=== PATIENT | male | born 1945 | race Hispanic/Latino ===

== ENCOUNTER 2016-12-23 14:39 | Inpatient (IN) | payer OTHER, MEDICARE ==
[2016-12-23 20:12] VITALS: BMI 37.6
[2016-12-23] MEDS ORDERED: Benzocaine/Menthol (Cepacol) Lozenge PO PRN (23:08)
[2016-12-24] MEDS ORDERED: IRBESARTAN 300 MG PO SCH (09:00)
[2016-12-24] MEDS ORDERED: Potassium Chloride 20 mEq/15 ml LIQ UD PO SCH (09:00)
[2016-12-24] MEDS ORDERED: Patient's Own Med (Cholecalciferol (Vitamin D3) [Vitamin D3] 2,000 UNIT) PO SCH (09:00)
[2016-12-24] MEDS ORDERED: SAW PALMETTO FRUIT 450 MG PO SCH (09:00)
[2016-12-24] MEDS: Oxycodone/Acetaminophen 5/325 mg Tab PO PRN ×3 (09:07→21:12)
[2016-12-24] MEDS: Pantoprazole 40 mg EC Tab PO SCH (09:09)
[2016-12-24] MEDS: Multivitamin With Minerals Tab PO SCH (09:09)
--- NOTE | 2016-12-24 10:24 | CP.PCM.HP ---
Present on Admission - Present on Admission Any Indicators Present on Admission: Yes History of DVT/PE: Yes History of Uncontrolled Diabetes: No Urinary Catheter: No Decubitus Ulcer Present: No Review of Systems - Review of Systems All systems: reviewed and no additional remarkable complaints except - Cardiovascular Cardiovascular: As Per HPI, Pedal Edema - Respiratory Respiratory: As Per HPI Past Patient History - Infectious Disease Hx of Infectious Diseases: None - Past Medical History & Family History Past Medical History?: Yes Pertinent Family History: Mother- at age 92 Father at age 60. [place] @55, brain tumor - Past Social History Smoking Status: Never Smoked Alcohol: None Drugs: Denies - CARDIAC Hx Cardiac Disorders: Yes Hx Atrial Fibrillation: Yes (PAF) Hx Circulatory Problems: Yes Hx Heart Murmur: Yes Hx Hypertension: Yes Hx Mitral Valve Prolapse: Yes - PULMONARY Hx Respiratory Disorders: Yes Hx Pulmonary Embolism: Yes (2 years ago) Hx Respiratory Tract Infection: Yes Hx Sleep Apnea: Yes (CPAP ) - NEUROLOGICAL Hx Neurological Disorder: No - HEENT Hx HEENT Problems: No - RENAL Hx Chronic Kidney Disease: No - ENDOCRINE/METABOLIC Hx Endocrine Disorders: No - HEMATOLOGICAL/ONCOLOGICAL Hx Blood Disorders: No - INTEGUMENTARY Hx Dermatological Problems: No - MUSCULOSKELETAL/RHEUMATOLOGICAL Hx Falls: No - GASTROINTESTINAL Hx Gastrointestinal Disorders: No - GENITOURINARY/GYNECOLOGICAL Hx Genitourinary Disorders: Yes Hx Prostate Problems: Yes - PSYCHIATRIC Hx Substance Use: No - SURGICAL HISTORY Hx Surgeries: Yes Hx Herniorrhaphy: Yes Hx Valve Replacement: (Mitral Valve Repair with Ring and Closure of Appendage) Other/Comment: HX: CYST REMOVAL OF LEFT SIDE OF NECK-POSTERIOR AND UPPER FOREHEAD. GALINA EPIDURAL INJECTION - ANESTHESIA Hx Anesthesia: Yes Hx Anesthesia Reactions: No Hx Malignant Hyperthermia: No Meds Allergies/Adverse Reactions: Allergies Allergy/AdvReac Type Severity Reaction Status Date / Time No Known Allergies Allergy Verified 11/26/14 16:56 Physical Exam - Constitutional Appears: Well, No Acute Distress - Head Exam Head Exam: ATRAUMATIC, NORMAL INSPECTION, NORMOCEPHALIC - Eye Exam Eye Exam: EOMI, Normal appearance, PERRL Pupil Exam: NORMAL ACCOMODATION, PERRL - ENT Exam ENT Exam: Mucous Membranes Moist, Normal Exam - Neck Exam Neck exam: Positive for: Full Rom, Normal Inspection - Respiratory Exam Respiratory Exam: Clear to Auscultation Bilateral, NORMAL BREATHING PATTERN - Cardiovascular Exam Cardiovascular Exam: Bradycardia, REGULAR RHYTHM, +S1, +S2 Additional comments: +midline surgical scar - GI/Abdominal Exam GI & Abdominal Exam: Normal Bowel Sounds, Soft. absent: Tenderness - Extremities Exam Extremities exam: Positive for: normal capillary refill, pedal edema (+++ pitting Edema) - Back Exam Back exam: NORMAL INSPECTION - Neurological Exam Neurological exam: Alert, CN II-XII Intact, Normal Gait, Oriented x3, Reflexes Normal - Psychiatric Exam Psychiatric exam: Normal Affect, Normal Mood - Skin Skin Exam: Dry, Intact, Normal Color, Warm Results - Vital Signs Recent Vital Signs: Last Vital Signs Temp 97.7 F 12/24/16 08:00 Pulse 55 L 12/24/16 09:08 Resp 20 12/24/16 08:00 BP 108/56 L 12/24/16 09:09 Pulse Ox 99 12/24/16 08:00 Assessment & Plan (1) Pulmonary emboli Assessment and Plan: DVT Status: Acute (2) HTN (hypertension) Status: Chronic Priority: Low (3) GILLIAN (obstructive sleep apnea) Status: Chronic Priority: Low (4) S/P mitral valve repair Status: Acute (5) Bilateral lower extremity edema Status: Acute
[2016-12-24 11:31] LABS: ALKALINE PHOSPHATASE 95 U/L (38-126); ALT/SGPT 58 U/L (21-72); AST/SGOT 35 U/L (17-59); BILIRUBIN,TOTAL 0.9 mg/dl (0.2-1.3); BLOOD UREA NITROGEN 26 mg/dl (9-20); CALCIUM 8.9 mg/dL (8.4-10.2); CARBON DIOXIDE 35 mmol/L (22-30); CHLORIDE 97 mmol/L (98-107); GFR AFRICAN-AMERICAN > 60; GLUCOSE,RANDOM 95 mg/dL (75-110); SODIUM 139 mmol/l (132-148); TOTAL PROTEIN 7.1 G/DL (6.3-8.2)
[2016-12-24 12:01] LABS: THYROID STIMULATING HORMONE 1.65 mIU/ML (0.46-4.68)
[2016-12-24] MEDS ORDERED: Potassium Chloride 20 mEq ER Tab PO SCH (17:00)
[2016-12-24] MEDS: Promethazine DM 6.25 mg-15 mg/5 ml Syrup PO PRN (21:03)
[2016-12-25] MEDS: Promethazine DM 6.25 mg-15 mg/5 ml Syrup PO PRN ×3 (05:03→16:22)
[2016-12-25] MEDS: Oxycodone/Acetaminophen 5/325 mg Tab PO PRN ×3 (06:41→22:20)
[2016-12-25] MEDS: Pantoprazole 40 mg EC Tab PO SCH (08:49)
[2016-12-25] MEDS: Multivitamin With Minerals Tab PO SCH (08:50)
--- NOTE | 2016-12-25 09:34 | CARD ---
APPROVED REPORT EKG Measurement Heart [id number] <Conclusion> Normal sinus rhythm Right bundle branch block Inferior infarct, age undetermined Abnormal ECG
--- NOTE | 2016-12-25 11:58 | CP.PCM.CON ---
History of Present Illness - History of Present Illness History of Present Illness: CC: Orthostatic hypotension. HPI: This is a 71 year old male with a PMH of recent MV repair, post of atrial fibrillation, DVT, PE and GILLIAN who is transferred to the TCU post MVR. He is noted to have lower extremity edema and mild dyspnea with effort. His post op course was otherwise uncomplicated and the patient is tolerating PT as expected. He has chest wall pain mainly with coughing and deep inspiration otherwise has no complaints. An ECG reveals sinus rhythm at 60 BPM, RBBB, inferior SC age indeterminate and low voltage in precordial leads. Review of Systems - Constitutional Constitutional: Fatigue - EENT Additional comments: Negative. - Cardiovascular Cardiovascular: Dyspnea, Dyspnea on Exertion, Leg Edema - Respiratory Respiratory: Dyspnea - Gastrointestinal Additional comments: Negative. - Genitourinary Additional comments: Negative. - Musculoskeletal Musculoskeletal: Muscle Weakness Additional comments: Chest wall pain. - Integumentary Additional comments: Negative. - Neurological Neurological: Weakness - Psychiatric Additional comments: Negative. - Endocrine Endocrine: Fatigue - Hematologic/Lymphatic Additional comments: Negative. Past Patient History - Infectious Disease Hx of Infectious Diseases: None - Past Medical History & Family History Past Medical History?: Yes - Past Social History Smoking Status: Never Smoked Alcohol: None Drugs: Denies - CARDIAC Hx Cardiac Disorders: Yes Hx Atrial Fibrillation: Yes (PAF) Hx Circulatory Problems: Yes (DVT) Hx Heart Murmur: Yes Hx Hypertension: Yes Hx Mitral Valve Prolapse: Yes - PULMONARY Hx Respiratory Disorders: Yes Hx Pulmonary Embolism: Yes (2 years ago) Hx Respiratory Tract Infection: Yes Hx Sleep Apnea: Yes (CPAP ) - NEUROLOGICAL Hx Neurological Disorder: No - HEENT Hx HEENT Problems: No - RENAL Hx Chronic Kidney Disease: No - ENDOCRINE/METABOLIC Hx Endocrine Disorders: No - HEMATOLOGICAL/ONCOLOGICAL Hx Blood Disorders: No - INTEGUMENTARY Hx Dermatological Problems: No - MUSCULOSKELETAL/RHEUMATOLOGICAL Hx Falls: No - GASTROINTESTINAL Hx Gastrointestinal Disorders: No - GENITOURINARY/GYNECOLOGICAL Hx Genitourinary Disorders: Yes Hx Prostate Problems: Yes - PSYCHIATRIC Hx Substance Use: No - SURGICAL HISTORY Hx Surgeries: Yes Hx Herniorrhaphy: Yes Hx Valve Replacement: (Mitral Valve Repair with Ring and Closure of Appendage) Other/Comment: HX: CYST REMOVAL OF LEFT SIDE OF NECK-POSTERIOR AND UPPER FOREHEAD. GALINA EPIDURAL INJECTION - ANESTHESIA Hx Anesthesia: Yes Hx Anesthesia Reactions: No Hx Malignant Hyperthermia: No Meds Allergies/Adverse Reactions: Allergies Allergy/AdvReac Type Severity Reaction Status Date / Time No Known Allergies Allergy Verified 11/26/14 16:56 - Medications Medications: Current Medications Acetaminophen (Tylenol 325mg Tab) 325 mg PO Q4 PRN PRN Reason: Pain, Mild (1-3) Amiodarone HCl (Cordarone) 200 mg PO BID [facility] Last Admin: 12/25/16 08:47 Dose: 200 mg Apixaban (Eliquis) 5 mg PO BID [facility] PRN Reason: Protocol Last Admin: 12/25/16 08:49 Dose: 5 mg Aspirin (Aspirin Chewable) 81 mg PO DAILY [facility] Last Admin: 12/25/16 08:47 Dose: 81 mg Benzocaine/Menthol (Cepacol Sore Throat) 1 ari PO QID PRN PRN Reason: Sore Throat Last Admin: 12/24/16 09:03 Dose: 1 ari Bisacodyl (Dulcolax) 10 mg [place] DAILY PRN PRN Reason: Constipation Cholecalciferol (Vitamin D) 2,000 iu PO DAILY [facility] Last Admin: 12/25/16 08:50 Dose: 2,000 iu Docusate Sodium (Colace) 100 mg PO BID [facility] Last Admin: 12/25/16 08:47 Dose: 100 mg Furosemide (Lasix) 40 mg PO DAILY [facility] Last Admin: 12/25/16 08:49 Dose: 40 mg Lactulose (Enulose) 20 gm PO Q12H PRN PRN Reason: Constipation Losartan Potassium (Cozaar) 100 mg PO DAILY [facility] Last Admin: 12/25/16 11:12 Dose: 100 mg Multivitamins/Minerals (Therapeutic-M Tab) 1 tab PO DAILY [facility] Last Admin: 12/25/16 08:50 Dose: 1 tab Oxycodone/Acetaminophen (Percocet 5/325 Mg Tab) 1 tab PO Q4 PRN PRN Reason: Pain, moderate (4-7) Stop: 12/26/16 23:22 Last Admin: 12/25/16 06:41 Dose: 1 tab Oxycodone/Acetaminophen (Percocet 5/325 Mg Tab) 2 tab PO Q4 PRN PRN Reason: Pain, severe (8-10) Stop: 12/26/16 23:23 Last Admin: 12/24/16 21:12 Dose: 2 tab Pantoprazole Sodium (Protonix Ec Tab) 40 mg PO DAILY [facility] Last Admin: 12/25/16 08:49 Dose: 40 mg Promethazine HCl/Dextromethorphan (Phenergan Dm Syrup) 5 ml PO Q6 PRN PRN Reason: cough Last Admin: 12/25/16 11:13 Dose: 5 ml Tamsulosin HCl (Flomax) 0.4 mg PO DAILY [facility] Last Admin: 12/25/16 08:49 Dose: 0.4 mg Physical Exam - Constitutional Appears: Well, No Acute Distress - Head Exam Head Exam: NORMAL INSPECTION, NORMOCEPHALIC - Eye Exam Eye Exam: Normal appearance - ENT Exam ENT Exam: Mucous Membranes Moist, Normal Exam - Neck Exam Neck exam: Positive for: Normal Inspection - Respiratory Exam Respiratory Exam: Decreased Breath Sounds, NORMAL BREATHING PATTERN - Cardiovascular Exam Cardiovascular Exam: REGULAR RHYTHM, +S1, +S2 - GI/Abdominal Exam GI & Abdominal Exam: Normal Bowel Sounds - Rectal Exam Rectal Exam: Deferred - Extremities Exam Extremities exam: Positive for: full ROM, pedal edema - Back Exam Back exam: NORMAL INSPECTION - Neurological Exam Neurological exam: Alert, CN II-XII Intact, Oriented x3 - Psychiatric Exam Psychiatric exam: Normal Affect, Normal Mood - Skin Skin Exam: Dry, Intact, Normal Color, Warm Results - Vital Signs Recent Vital Signs: Last Vital Signs Temp 98.1 F 12/25/16 08:28 Pulse 60 12/25/16 11:12 Resp 20 12/25/16 08:28 BP 102/68 12/25/16 11:12 Pulse Ox 95 12/25/16 08:28 - Labs Result Diagrams: 12/24/16 11:10 Labs: Laboratory Results - last 24 hr 12/24/16 11:10 TSH 3rd Generation 1.65 Assessment & Plan - Assessment and Plan (Free Text) Assessment: MV repair with annular ring Post op atrial fibrillation Edema Dyspnea H/o DVT, PE GILLIAN Plan: Continue present medical management with lasix, apixaban, amiodarone PT Follow up as an outpatient - Date & Time Date: 12/25/16 Time: 21:40
--- NOTE | 2016-12-25 18:26 | CP.PCM.PN ---
Subjective - Date & Time of Evaluation Date of Evaluation: 12/25/16 Time of Evaluation: 18:25 Objective - Vital Signs/Intake and Output Vital Signs (last 24 hours): Temp Pulse Resp BP Pulse Ox 98.1 F 57 L 18 98/57 L 97 12/25/16 16:32 12/25/16 16:32 12/25/16 16:32 12/25/16 16:32 12/25/16 16:32 - Medications Medications: Current Medications Acetaminophen (Tylenol 325mg Tab) 325 mg PO Q4 PRN PRN Reason: Pain, Mild (1-3) Amiodarone HCl (Cordarone) 200 mg PO BID [facility] Last Admin: 12/25/16 17:43 Dose: Not Given Apixaban (Eliquis) 5 mg PO BID [facility] PRN Reason: Protocol Last Admin: 12/25/16 17:44 Dose: Not Given Aspirin (Aspirin Chewable) 81 mg PO DAILY [facility] Last Admin: 12/25/16 08:47 Dose: 81 mg Benzocaine/Menthol (Cepacol Sore Throat) 1 ari PO QID PRN PRN Reason: Sore Throat Last Admin: 12/24/16 09:03 Dose: 1 ari Bisacodyl (Dulcolax) 10 mg [place] DAILY PRN PRN Reason: Constipation Cholecalciferol (Vitamin D) 2,000 iu PO DAILY [facility] Last Admin: 12/25/16 08:50 Dose: 2,000 iu Docusate Sodium (Colace) 100 mg PO BID [facility] Last Admin: 12/25/16 17:44 Dose: 100 mg Furosemide (Lasix) 40 mg PO DAILY [facility] Last Admin: 12/25/16 08:49 Dose: 40 mg Lactulose (Enulose) 20 gm PO Q12H PRN PRN Reason: Constipation Losartan Potassium (Cozaar) 100 mg PO DAILY [facility] Last Admin: 12/25/16 11:12 Dose: 100 mg Multivitamins/Minerals (Therapeutic-M Tab) 1 tab PO DAILY [facility] Last Admin: 12/25/16 08:50 Dose: 1 tab Oxycodone/Acetaminophen (Percocet 5/325 Mg Tab) 1 tab PO Q4 PRN PRN Reason: Pain, moderate (4-7) Stop: 12/26/16 23:22 Last Admin: 12/25/16 15:29 Dose: 1 tab Oxycodone/Acetaminophen (Percocet 5/325 Mg Tab) 2 tab PO Q4 PRN PRN Reason: Pain, severe (8-10) Stop: 12/26/16 23:23 Last Admin: 12/24/16 21:12 Dose: 2 tab Pantoprazole Sodium (Protonix Ec Tab) 40 mg PO DAILY [facility] Last Admin: 12/25/16 08:49 Dose: 40 mg Promethazine HCl/Dextromethorphan (Phenergan Dm Syrup) 5 ml PO Q6 PRN PRN Reason: cough Last Admin: 12/25/16 16:22 Dose: 5 ml Tamsulosin HCl (Flomax) 0.4 mg PO DAILY [facility] Last Admin: 12/25/16 08:49 Dose: 0.4 mg - Labs Labs: 12/24/16 11:10 Assessment and Plan (1) Pulmonary emboli Status: Acute (2) HTN (hypertension) Status: Chronic (3) GILLIAN (obstructive sleep apnea) Status: Chronic (4) S/P mitral valve repair Status: Acute (5) Bilateral lower extremity edema Status: Acute
[2016-12-26] MEDS: Promethazine DM 6.25 mg-15 mg/5 ml Syrup PO PRN ×3 (05:03→20:15)
[2016-12-26] MEDS: Oxycodone/Acetaminophen 5/325 mg Tab PO PRN ×2 (08:26→21:48)
[2016-12-26] MEDS: Pantoprazole 40 mg EC Tab PO SCH (08:28)
[2016-12-26] MEDS: Multivitamin With Minerals Tab PO SCH (08:28)
--- NOTE | 2016-12-26 11:49 | CP.PCM.PN ---
Subjective - Date & Time of Evaluation Date of Evaluation: 12/26/16 Time of Evaluation: 11:00 Objective - Vital Signs/Intake and Output Vital Signs (last 24 hours): Temp Pulse Resp BP Pulse Ox 97.7 F 55 L 20 132/69 97 12/26/16 08:51 12/26/16 08:51 12/26/16 08:51 12/26/16 08:51 12/26/16 08:51 - Medications Medications: Current Medications Acetaminophen (Tylenol 325mg Tab) 325 mg PO Q4 PRN PRN Reason: Pain, Mild (1-3) Amiodarone HCl (Cordarone) 200 mg PO BID@0900,2100 [facility] Last Admin: 12/26/16 08:27 Dose: 200 mg Apixaban (Eliquis) 5 mg PO BID [facility] PRN Reason: Protocol Last Admin: 12/26/16 08:28 Dose: 5 mg Aspirin (Aspirin Chewable) 81 mg PO DAILY [facility] Last Admin: 12/26/16 08:27 Dose: 81 mg Benzocaine/Menthol (Cepacol Sore Throat) 1 ari PO QID PRN PRN Reason: Sore Throat Last Admin: 12/24/16 09:03 Dose: 1 ari Bisacodyl (Dulcolax) 10 mg [place] DAILY PRN PRN Reason: Constipation Cholecalciferol (Vitamin D) 2,000 iu PO DAILY [facility] Last Admin: 12/26/16 08:28 Dose: 2,000 iu Docusate Sodium (Colace) 100 mg PO BID [facility] Last Admin: 12/26/16 08:27 Dose: 100 mg Furosemide (Lasix) 40 mg PO DAILY [facility] Last Admin: 12/26/16 08:28 Dose: 40 mg Lactulose (Enulose) 20 gm PO Q12H PRN PRN Reason: Constipation Losartan Potassium (Cozaar) 100 mg PO DAILY [facility] Last Admin: 12/26/16 08:27 Dose: 100 mg Multivitamins/Minerals (Therapeutic-M Tab) 1 tab PO DAILY [facility] Last Admin: 12/26/16 08:28 Dose: 1 tab Oxycodone/Acetaminophen (Percocet 5/325 Mg Tab) 1 tab PO Q4 PRN PRN Reason: Pain, moderate (4-7) Stop: 12/26/16 23:22 Last Admin: 12/26/16 08:26 Dose: 1 tab Oxycodone/Acetaminophen (Percocet 5/325 Mg Tab) 2 tab PO Q4 PRN PRN Reason: Pain, severe (8-10) Stop: 12/26/16 23:23 Last Admin: 12/24/16 21:12 Dose: 2 tab Pantoprazole Sodium (Protonix Ec Tab) 40 mg PO DAILY [facility] Last Admin: 12/26/16 08:28 Dose: 40 mg Promethazine HCl/Dextromethorphan (Phenergan Dm Syrup) 5 ml PO Q4 PRN PRN Reason: Cough Tamsulosin HCl (Flomax) 0.4 mg PO DAILY [facility] Last Admin: 12/26/16 08:28 Dose: 0.4 mg - Labs Labs: 12/24/16 11:10 Assessment and Plan (1) Pulmonary emboli Status: Acute (2) HTN (hypertension) Status: Chronic (3) GILLIAN (obstructive sleep apnea) Status: Chronic (4) S/P mitral valve repair Status: Acute (5) Bilateral lower extremity edema Status: Acute
[2016-12-27] MEDS ORDERED: Oxycodone/Acetaminophen 5/325 mg Tab PO PRN (07:18)
[2016-12-27] MEDS: Pantoprazole 40 mg EC Tab PO SCH (08:55)
[2016-12-27] MEDS: Multivitamin With Minerals Tab PO SCH (08:55)
[2016-12-27] MEDS: Promethazine DM 6.25 mg-15 mg/5 ml Syrup PO PRN ×3 (13:30→23:18)
--- NOTE | 2016-12-27 20:21 | CP.PCM.PN ---
Subjective - Date & Time of Evaluation Date of Evaluation: 12/27/16 Time of Evaluation: 11:15 Objective - Vital Signs/Intake and Output Vital Signs (last 24 hours): Temp Pulse Resp BP Pulse Ox 97.7 F 63 20 102/53 L 96 12/27/16 17:07 12/27/16 08:54 12/27/16 08:06 12/27/16 17:14 12/27/16 08:06 - Medications Medications: Current Medications Acetaminophen (Tylenol 325mg Tab) 325 mg PO Q4 PRN PRN Reason: Pain, Mild (1-3) Amiodarone HCl (Cordarone) 200 mg PO BID@0900,2100 [facility] Last Admin: 12/27/16 08:53 Dose: 200 mg Apixaban (Eliquis) 5 mg PO BID [facility] PRN Reason: Protocol Last Admin: 12/27/16 17:44 Dose: 5 mg Aspirin (Aspirin Chewable) 81 mg PO DAILY [facility] Last Admin: 12/27/16 08:53 Dose: 81 mg Benzocaine/Menthol (Cepacol Sore Throat) 1 ari PO QID PRN PRN Reason: Sore Throat Last Admin: 12/24/16 09:03 Dose: 1 ari Bisacodyl (Dulcolax) 10 mg [place] DAILY PRN PRN Reason: Constipation Cholecalciferol (Vitamin D) 2,000 iu PO DAILY [facility] Last Admin: 12/27/16 08:55 Dose: 2,000 iu Docusate Sodium (Colace) 100 mg PO BID [facility] Last Admin: 12/27/16 17:44 Dose: 100 mg Furosemide (Lasix) 40 mg PO DAILY [facility] Last Admin: 12/27/16 08:54 Dose: 40 mg Lactulose (Enulose) 20 gm PO Q12H PRN PRN Reason: Constipation Losartan Potassium (Cozaar) 100 mg PO DAILY [facility] Last Admin: 12/27/16 08:54 Dose: 100 mg Multivitamins/Minerals (Therapeutic-M Tab) 1 tab PO DAILY [facility] Last Admin: 12/27/16 08:55 Dose: 1 tab Oxycodone/Acetaminophen (Percocet 5/325 Mg Tab) 1 tab PO Q4 PRN PRN Reason: for pain level 4-7 Stop: 12/30/16 07:19 Oxycodone/Acetaminophen (Percocet 5/325 Mg Tab) 2 tab PO Q4 PRN PRN Reason: for pain level 8-10 Stop: 12/30/16 07:19 Pantoprazole Sodium (Protonix Ec Tab) 40 mg PO DAILY [facility] Last Admin: 12/27/16 08:55 Dose: 40 mg Promethazine HCl/Dextromethorphan (Phenergan Dm Syrup) 5 ml PO Q4 PRN PRN Reason: Cough Last Admin: 12/27/16 18:24 Dose: 5 ml Tamsulosin HCl (Flomax) 0.4 mg PO DAILY [facility] Last Admin: 12/27/16 08:54 Dose: 0.4 mg - Labs Labs: 12/24/16 11:10 Assessment and Plan (1) Pulmonary emboli Status: Acute (2) HTN (hypertension) Status: Chronic (3) GILLIAN (obstructive sleep apnea) Status: Chronic (4) S/P mitral valve repair Status: Acute (5) Bilateral lower extremity edema Status: Acute
[2016-12-27] MEDS: Oxycodone/Acetaminophen 5/325 mg Tab PO PRN (22:34)
[2016-12-28 07:48] LABS: ALKALINE PHOSPHATASE 79 U/L (38-126); ALT/SGPT 48 U/L (21-72); AST/SGOT 33 U/L (17-59); BILIRUBIN,TOTAL 0.9 mg/dl (0.2-1.3); BLOOD UREA NITROGEN 26 mg/dl (9-20); CALCIUM 8.6 mg/dL (8.4-10.2); CARBON DIOXIDE 31 mmol/L (22-30); CHLORIDE 96 mmol/L (98-107); GFR AFRICAN-AMERICAN > 60; GLUCOSE,RANDOM 93 mg/dL (75-110); POTASSIUM 3.9 MMOL/L (3.6-5.0); SODIUM 133 mmol/l (132-148); TOTAL PROTEIN 6.6 G/DL (6.3-8.2)
[2016-12-28 07:57] LABS: BASO # 0.1 K/uL (0.0-0.2); BASO % 0.7 % (0.0-2.0); EOS # 0.2 K/uL (0.0-0.7); EOS % 1.8 % (0.0-4.0); LYMPH # 1.2 K/uL (1.0-4.3); LYMPH % 13.5 % (20.0-40.0); MEAN CORPUSCULAR HEMOGLOBIN 29.6 pg (27.0-31.0); MEAN CORPUSCULAR HGB CONC 33.6 g/dL (33.0-37.0); MEAN PLATELET VOLUME 9.2 fl (7.2-11.7); MONO % 12.1 % (0.0-10.0); NEUT # 6.2 K/uL (1.8-7.0); NEUT % 71.9 % (50.0-75.0); NRBC % 0.2 % (0.0-0.0); RED CELL DISTRIBUTION WIDTH 13.4 % (11.5-14.5); WHITE BLOOD COUNT 8.6 K/uL (4.8-10.8)
[2016-12-28] MEDS: Promethazine DM 6.25 mg-15 mg/5 ml Syrup PO PRN (08:34)
[2016-12-28] MEDS: Pantoprazole 40 mg EC Tab PO SCH (08:35)
[2016-12-28] MEDS: Multivitamin With Minerals Tab PO SCH (08:37)
--- NOTE | 2016-12-28 22:31 | CP.PCM.PN ---
Subjective - Date & Time of Evaluation Date of Evaluation: 12/28/16 Time of Evaluation: 11:00 Objective - Vital Signs/Intake and Output Vital Signs (last 24 hours): Temp Pulse Resp BP Pulse Ox 98.1 F 69 20 104/65 97 12/28/16 22:04 12/28/16 22:04 12/28/16 22:04 12/28/16 22:04 12/28/16 22:04 - Medications Medications: Current Medications Acetaminophen (Tylenol 325mg Tab) 325 mg PO Q4 PRN PRN Reason: Pain, Mild (1-3) Amiodarone HCl (Cordarone) 200 mg PO BID@0900,2100 [facility] Last Admin: 12/28/16 20:45 Dose: 200 mg Apixaban (Eliquis) 5 mg PO BID [facility] PRN Reason: Protocol Last Admin: 12/28/16 17:12 Dose: 5 mg Aspirin (Aspirin Chewable) 81 mg PO DAILY [facility] Last Admin: 12/28/16 08:35 Dose: 81 mg Benzocaine/Menthol (Cepacol Sore Throat) 1 ari PO QID PRN PRN Reason: Sore Throat Last Admin: 12/24/16 09:03 Dose: 1 ari Bisacodyl (Dulcolax) 10 mg [place] DAILY PRN PRN Reason: Constipation Cholecalciferol (Vitamin D) 2,000 iu PO DAILY [facility] Last Admin: 12/28/16 08:37 Dose: 2,000 iu Docusate Sodium (Colace) 100 mg PO BID [facility] Last Admin: 12/28/16 17:12 Dose: 100 mg Furosemide (Lasix) 40 mg PO DAILY [facility] Last Admin: 12/28/16 08:35 Dose: 40 mg Lactulose (Enulose) 20 gm PO Q12H PRN PRN Reason: Constipation Losartan Potassium (Cozaar) 100 mg PO DAILY [facility] Last Admin: 12/28/16 08:36 Dose: 100 mg Multivitamins/Minerals (Therapeutic-M Tab) 1 tab PO DAILY [facility] Last Admin: 12/28/16 08:37 Dose: 1 tab Oxycodone/Acetaminophen (Percocet 5/325 Mg Tab) 1 tab PO Q4 PRN PRN Reason: for pain level 4-7 Stop: 12/30/16 07:19 Last Admin: 12/27/16 22:34 Dose: 1 tab Oxycodone/Acetaminophen (Percocet 5/325 Mg Tab) 2 tab PO Q4 PRN PRN Reason: for pain level 8-10 Stop: 12/30/16 07:19 Pantoprazole Sodium (Protonix Ec Tab) 40 mg PO DAILY [facility] Last Admin: 12/28/16 08:35 Dose: 40 mg Promethazine HCl/Dextromethorphan (Phenergan Dm Syrup) 5 ml PO Q4 PRN PRN Reason: Cough Last Admin: 12/28/16 08:34 Dose: 5 ml Tamsulosin HCl (Flomax) 0.4 mg PO DAILY [facility] Last Admin: 12/28/16 08:37 Dose: 0.4 mg - Labs Labs: 12/28/16 07:16 12/28/16 07:16 Assessment and Plan (1) Pulmonary emboli Status: Acute (2) HTN (hypertension) Status: Chronic (3) GILLIAN (obstructive sleep apnea) Status: Chronic (4) S/P mitral valve repair Status: Acute (5) Bilateral lower extremity edema Status: Acute
[2016-12-29] MEDS: Oxycodone/Acetaminophen 5/325 mg Tab PO PRN (02:03)
[2016-12-29] MEDS: Multivitamin With Minerals Tab PO SCH (09:21)
[2016-12-29] MEDS: Pantoprazole 40 mg EC Tab PO SCH (09:23)
[2016-12-30] MEDS: Oxycodone/Acetaminophen 5/325 mg Tab PO PRN (00:10)
[2016-12-30] MEDS: Promethazine DM 6.25 mg-15 mg/5 ml Syrup PO PRN ×2 (00:11→18:52)
--- NOTE | 2016-12-30 00:48 | CP.PCM.PN ---
Subjective - Date & Time of Evaluation Date of Evaluation: 12/29/16 Time of Evaluation: 20:45 Objective - Vital Signs/Intake and Output Vital Signs (last 24 hours): Temp Pulse Resp BP Pulse Ox 97.9 F 65 20 102/48 L 96 12/29/16 20:42 12/29/16 22:04 12/29/16 20:42 12/29/16 20:42 12/29/16 20:42 - Medications Medications: Current Medications Acetaminophen (Tylenol 325mg Tab) 325 mg PO Q4 PRN PRN Reason: Pain, Mild (1-3) Amiodarone HCl (Cordarone) 200 mg PO BID@0900,2100 [facility] Last Admin: 12/29/16 22:04 Dose: 200 mg Apixaban (Eliquis) 5 mg PO BID [facility] PRN Reason: Protocol Last Admin: 12/29/16 16:47 Dose: 5 mg Aspirin (Aspirin Chewable) 81 mg PO DAILY [facility] Last Admin: 12/29/16 09:25 Dose: 81 mg Benzocaine/Menthol (Cepacol Sore Throat) 1 ari PO QID PRN PRN Reason: Sore Throat Last Admin: 12/24/16 09:03 Dose: 1 ari Bisacodyl (Dulcolax) 10 mg [place] DAILY PRN PRN Reason: Constipation Cholecalciferol (Vitamin D) 2,000 iu PO DAILY [facility] Last Admin: 12/29/16 09:23 Dose: 2,000 iu Docusate Sodium (Colace) 100 mg PO BID [facility] Last Admin: 12/29/16 16:47 Dose: 100 mg Furosemide (Lasix) 40 mg PO DAILY [facility] Last Admin: 12/29/16 09:22 Dose: 40 mg Lactulose (Enulose) 20 gm PO Q12H PRN PRN Reason: Constipation Losartan Potassium (Cozaar) 100 mg PO DAILY [facility] Last Admin: 12/29/16 09:21 Dose: 100 mg Multivitamins/Minerals (Therapeutic-M Tab) 1 tab PO DAILY [facility] Last Admin: 12/29/16 09:21 Dose: 1 tab Oxycodone/Acetaminophen (Percocet 5/325 Mg Tab) 1 tab PO Q4 PRN PRN Reason: for pain level 4-7 Stop: 12/30/16 07:19 Last Admin: 12/30/16 00:10 Dose: 1 tab Oxycodone/Acetaminophen (Percocet 5/325 Mg Tab) 2 tab PO Q4 PRN PRN Reason: for pain level 8-10 Stop: 12/30/16 07:19 Pantoprazole Sodium (Protonix Ec Tab) 40 mg PO DAILY [facility] Last Admin: 12/29/16 09:23 Dose: 40 mg Promethazine HCl/Dextromethorphan (Phenergan Dm Syrup) 5 ml PO Q4 PRN PRN Reason: Cough Last Admin: 12/30/16 00:11 Dose: 5 ml Tamsulosin HCl (Flomax) 0.4 mg PO DAILY [facility] Last Admin: 12/29/16 09:22 Dose: 0.4 mg - Labs Labs: 12/28/16 07:16 12/28/16 07:16 Assessment and Plan (1) Pulmonary emboli Status: Acute (2) HTN (hypertension) Status: Chronic (3) GILLIAN (obstructive sleep apnea) Status: Chronic (4) S/P mitral valve repair Status: Acute (5) Bilateral lower extremity edema Status: Acute
[2016-12-30] MEDS ORDERED: Oxycodone/Acetaminophen 5/325 mg Tab PO PRN (08:37)
[2016-12-30] MEDS: Multivitamin With Minerals Tab PO SCH (08:38)
[2016-12-30] MEDS: Pantoprazole 40 mg EC Tab PO SCH (08:40)
[2016-12-30] MEDS ORDERED: Oxycodone/Acetaminophen 5/325 mg Tab PO ONE (22:35)
--- NOTE | 2016-12-31 00:24 | CP.PCM.PN ---
Subjective - Date & Time of Evaluation Date of Evaluation: 12/30/16 Time of Evaluation: 16:00 Objective - Vital Signs/Intake and Output Vital Signs (last 24 hours): Temp Pulse Resp BP Pulse Ox 98.1 F 60 20 124/60 97 12/30/16 20:08 12/30/16 20:08 12/30/16 20:08 12/30/16 20:08 12/30/16 20:08 - Medications Medications: Current Medications Acetaminophen (Tylenol 325mg Tab) 325 mg PO Q4 PRN PRN Reason: Pain, Mild (1-3) Amiodarone HCl (Cordarone) 200 mg PO BID@0900,2100 [facility] Last Admin: 12/30/16 22:29 Dose: 200 mg Apixaban (Eliquis) 5 mg PO BID [facility] PRN Reason: Protocol Last Admin: 12/30/16 16:54 Dose: 5 mg Aspirin (Aspirin Chewable) 81 mg PO DAILY [facility] Last Admin: 12/30/16 08:40 Dose: 81 mg Benzocaine/Menthol (Cepacol Sore Throat) 1 ari PO QID PRN PRN Reason: Sore Throat Last Admin: 12/24/16 09:03 Dose: 1 ari Bisacodyl (Dulcolax) 10 mg [place] DAILY PRN PRN Reason: Constipation Cholecalciferol (Vitamin D) 2,000 iu PO DAILY [facility] Last Admin: 12/30/16 08:38 Dose: 2,000 iu Docusate Sodium (Colace) 100 mg PO BID [facility] Last Admin: 12/30/16 16:54 Dose: 100 mg Furosemide (Lasix) 40 mg PO DAILY [facility] Last Admin: 12/30/16 08:40 Dose: 40 mg Lactulose (Enulose) 20 gm PO Q12H PRN PRN Reason: Constipation Losartan Potassium (Cozaar) 100 mg PO DAILY [facility] Last Admin: 12/30/16 08:39 Dose: 100 mg Multivitamins/Minerals (Therapeutic-M Tab) 1 tab PO DAILY [facility] Last Admin: 12/30/16 08:38 Dose: 1 tab Oxycodone/Acetaminophen (Percocet 5/325 Mg Tab) 1 tab PO Q4 PRN PRN Reason: Pain, moderate (4-7) Stop: 01/02/17 08:38 Pantoprazole Sodium (Protonix Ec Tab) 40 mg PO DAILY [facility] Last Admin: 12/30/16 08:40 Dose: 40 mg Promethazine HCl/Dextromethorphan (Phenergan Dm Syrup) 5 ml PO Q4 PRN PRN Reason: Cough Last Admin: 12/30/16 18:52 Dose: 5 ml Tamsulosin HCl (Flomax) 0.4 mg PO DAILY [facility] Last Admin: 12/30/16 08:40 Dose: 0.4 mg - Labs Labs: 12/28/16 07:16 12/28/16 07:16 Assessment and Plan (1) Pulmonary emboli Status: Acute (2) HTN (hypertension) Status: Chronic (3) GILLIAN (obstructive sleep apnea) Status: Chronic (4) S/P mitral valve repair Status: Acute (5) Bilateral lower extremity edema Status: Acute
[2016-12-31] MEDS: Pantoprazole 40 mg EC Tab PO SCH (09:04)
[2016-12-31] MEDS: Multivitamin With Minerals Tab PO SCH (09:04)
[2016-12-31] MEDS: Promethazine DM 6.25 mg-15 mg/5 ml Syrup PO PRN ×2 (13:49→22:15)
[2016-12-31] MEDS ORDERED: Oxycodone/Acetaminophen 5/325 mg Tab PO PRN (20:33)
[2016-12-31] MEDS: Oxycodone/Acetaminophen 5/325 mg Tab PO PRN (22:14)
--- NOTE | 2016-12-31 22:55 | CP.PCM.PN ---
Subjective - Date & Time of Evaluation Date of Evaluation: 12/31/16 Time of Evaluation: 19:35 Objective - Vital Signs/Intake and Output Vital Signs (last 24 hours): Temp Pulse Resp BP Pulse Ox 98.1 F 68 20 110/63 95 12/31/16 21:25 12/31/16 22:09 12/31/16 21:25 12/31/16 22:09 12/31/16 21:25 - Medications Medications: Current Medications Acetaminophen (Tylenol 325mg Tab) 325 mg PO Q4 PRN PRN Reason: Pain, Mild (1-3) Amiodarone HCl (Cordarone) 200 mg PO BID@0900,2100 [facility] Last Admin: 12/31/16 22:09 Dose: 200 mg Apixaban (Eliquis) 5 mg PO BID [facility] PRN Reason: Protocol Last Admin: 12/31/16 17:39 Dose: 5 mg Aspirin (Aspirin Chewable) 81 mg PO DAILY [facility] Last Admin: 12/31/16 09:04 Dose: 81 mg Benzocaine/Menthol (Cepacol Sore Throat) 1 ari PO QID PRN PRN Reason: Sore Throat Last Admin: 12/24/16 09:03 Dose: 1 ari Bisacodyl (Dulcolax) 10 mg [place] DAILY PRN PRN Reason: Constipation Cholecalciferol (Vitamin D) 2,000 iu PO DAILY [facility] Last Admin: 12/31/16 09:04 Dose: 2,000 iu Docusate Sodium (Colace) 100 mg PO BID [facility] Last Admin: 12/31/16 17:39 Dose: 100 mg Furosemide (Lasix) 40 mg PO DAILY [facility] Last Admin: 12/31/16 09:05 Dose: 40 mg Lactulose (Enulose) 20 gm PO Q12H PRN PRN Reason: Constipation Losartan Potassium (Cozaar) 100 mg PO DAILY [facility] Last Admin: 12/31/16 10:55 Dose: 100 mg Multivitamins/Minerals (Therapeutic-M Tab) 1 tab PO DAILY [facility] Last Admin: 12/31/16 09:04 Dose: 1 tab Oxycodone/Acetaminophen (Percocet 5/325 Mg Tab) 1 tab PO Q4 PRN PRN Reason: for moderate pain 4-7 Stop: 01/03/17 22:07 Last Admin: 03/26/17 22:14 Dose: 1 tab Pantoprazole Sodium (Protonix Ec Tab) 40 mg PO DAILY [facility] Last Admin: 12/31/16 09:04 Dose: 40 mg Promethazine HCl/Dextromethorphan (Phenergan Dm Syrup) 5 ml PO Q4 PRN PRN Reason: Cough Last Admin: 12/31/16 22:15 Dose: 5 ml Tamsulosin HCl (Flomax) 0.4 mg PO DAILY [facility] Last Admin: 12/31/16 09:05 Dose: 0.4 mg - Labs Labs: 12/28/16 07:16 12/28/16 07:16 Assessment and Plan (1) Pulmonary emboli Status: Acute (2) HTN (hypertension) Status: Chronic (3) GILLIAN (obstructive sleep apnea) Status: Chronic (4) S/P mitral valve repair Status: Acute (5) Bilateral lower extremity edema Status: Acute
[2017-01-01] MEDS: Multivitamin With Minerals Tab PO SCH (08:26)
[2017-01-01] MEDS: Pantoprazole 40 mg EC Tab PO SCH (08:26)
[2017-01-01] MEDS: Oxycodone/Acetaminophen 5/325 mg Tab PO PRN (21:27)
[2017-01-01] MEDS: Promethazine DM 6.25 mg-15 mg/5 ml Syrup PO PRN (21:27)
--- NOTE | 2017-01-02 00:36 | CP.PCM.PN ---
Subjective - Date & Time of Evaluation Date of Evaluation: 01/01/17 Time of Evaluation: 17:15 Objective - Vital Signs/Intake and Output Vital Signs (last 24 hours): Temp Pulse Resp BP Pulse Ox 98.2 F 64 20 100/60 95 01/01/17 20:48 01/01/17 21:28 01/01/17 20:48 01/01/17 21:28 01/01/17 20:48 - Medications Medications: Current Medications Acetaminophen (Tylenol 325mg Tab) 325 mg PO Q4 PRN PRN Reason: Pain, Mild (1-3) Amiodarone HCl (Cordarone) 200 mg PO BID@0900,2100 [facility] OF [facility] Last Admin: 01/01/17 21:28 Dose: Not Given Apixaban (Eliquis) 5 mg PO BID [facility] PRN Reason: Protocol Last Admin: 01/01/17 17:03 Dose: 5 mg Aspirin (Aspirin Chewable) 81 mg PO DAILY [facility] Last Admin: 01/01/17 08:24 Dose: 81 mg Benzocaine/Menthol (Cepacol Sore Throat) 1 ari PO QID PRN PRN Reason: Sore Throat Last Admin: 12/24/16 09:03 Dose: 1 ari Bisacodyl (Dulcolax) 10 mg [place] DAILY PRN PRN Reason: Constipation Cholecalciferol (Vitamin D) 2,000 iu PO DAILY [facility] Last Admin: 01/01/17 08:26 Dose: 2,000 iu Docusate Sodium (Colace) 100 mg PO BID [facility] Last Admin: 01/01/17 17:03 Dose: 100 mg Furosemide (Lasix) 40 mg PO Q12 [facility] Last Admin: 01/01/17 21:22 Dose: Not Given Lactulose (Enulose) 20 gm PO Q12H PRN PRN Reason: Constipation Losartan Potassium (Cozaar) 100 mg PO DAILY [facility] Last Admin: 01/01/17 08:25 Dose: 100 mg Multivitamins/Minerals (Therapeutic-M Tab) 1 tab PO DAILY [facility] Last Admin: 01/01/17 08:26 Dose: 1 tab Oxycodone/Acetaminophen (Percocet 5/325 Mg Tab) 1 tab PO Q4 PRN PRN Reason: for moderate pain 4-7 Stop: 01/03/17 22:07 Last Admin: 01/01/17 21:27 Dose: 1 tab Pantoprazole Sodium (Protonix Ec Tab) 40 mg PO DAILY [facility] Last Admin: 01/01/17 08:26 Dose: 40 mg Promethazine HCl/Dextromethorphan (Phenergan Dm Syrup) 5 ml PO Q4 PRN PRN Reason: Cough Last Admin: 01/01/17 21:27 Dose: 5 ml Tamsulosin HCl (Flomax) 0.4 mg PO DAILY [facility] Last Admin: 01/01/17 08:26 Dose: 0.4 mg - Labs Labs: 12/28/16 07:16 12/28/16 07:16 Assessment and Plan (1) Pulmonary emboli Status: Acute (2) HTN (hypertension) Status: Chronic (3) GILLIAN (obstructive sleep apnea) Status: Chronic (4) S/P mitral valve repair Status: Acute (5) Bilateral lower extremity edema Status: Acute
[2017-01-02] MEDS: Pantoprazole 40 mg EC Tab PO SCH (08:28)
[2017-01-02] MEDS: Multivitamin With Minerals Tab PO SCH (08:28)
--- NOTE | 2017-01-02 12:18 | CP.PCM.DIS ---
Provider - Provider Date of Admission: 12/23/16 20:12 Attending physician: Mark Andrews MD Diagnosis - Discharge Diagnosis (1) Pulmonary emboli Status: Acute (2) HTN (hypertension) Status: Chronic Priority: Low (3) GILLIAN (obstructive sleep apnea) Status: Chronic Priority: Low (4) S/P mitral valve repair Status: Acute (5) Bilateral lower extremity edema Status: Acute Hospital Course - Lab Results Lab Results: Most Recent Lab Values WBC 8.6 K/uL (4.8-10.8) 12/28/16 07:16 RBC 3.87 Mil/uL (4.40-5.90) L 12/28/16 07:16 Hgb 11.4 g/dL (12.0-18.0) L D 12/28/16 07:16 Hct 34.0 % (35.0-51.0) L 12/28/16 07:16 MCV 88.0 fl (80.0-94.0) 12/28/16 07:16 MCH 29.6 pg (27.0-31.0) 12/28/16 07:16 MCHC 33.6 g/dL (33.0-37.0) 12/28/16 07:16 RDW 13.4 % (11.5-14.5) 12/28/16 07:16 Plt Count 318 K/uL (130-400) D 12/28/16 07:16 MPV 9.2 fl (7.2-11.7) 12/28/16 07:16 Neut % (Auto) 71.9 % (50.0-75.0) 12/28/16 07:16 Lymph % (Auto) 13.5 % (20.0-40.0) L 12/28/16 07:16 Hyde % (Auto) 12.1 % (0.0-10.0) H 12/28/16 07:16 Eos % (Auto) 1.8 % (0.0-4.0) 12/28/16 07:16 Baso % (Auto) 0.7 % (0.0-2.0) 12/28/16 07:16 Neut # 6.2 K/uL (1.8-7.0) 12/28/16 07:16 Lymph # 1.2 K/uL (1.0-4.3) 12/28/16 07:16 Hyde # 1.0 K/uL (0.0-0.8) H 12/28/16 07:16 Eos # 0.2 K/uL (0.0-0.7) 12/28/16 07:16 Baso # 0.1 K/uL (0.0-0.2) 12/28/16 07:16 Sodium 133 mmol/l (132-148) 12/28/16 07:16 Potassium 3.9 MMOL/L (3.6-5.0) 12/28/16 07:16 Chloride 96 mmol/L (98-107) L 12/28/16 07:16 Carbon Dioxide 31 mmol/L (22-30) H 12/28/16 07:16 Anion Gap 10 (10-20) 12/28/16 07:16 BUN 26 mg/dl (9-20) H 12/28/16 07:16 Creatinine 0.8 mg/dL (0.8-1.5) 12/28/16 07:16 Est GFR ( Amer) > 60 12/28/16 07:16 Est GFR (Non-Af Amer) > 60 12/28/16 07:16 Random Glucose 93 mg/dL (75-110) 12/28/16 07:16 Calcium 8.6 mg/dL (8.4-10.2) 12/28/16 07:16 Total Bilirubin 0.9 mg/dl (0.2-1.3) 12/28/16 07:16 AST 33 U/L (17-59) 12/28/16 07:16 ALT 48 U/L (21-72) 12/28/16 07:16 Alkaline Phosphatase 79 U/L (38-126) 12/28/16 07:16 Total Protein 6.6 G/DL (6.3-8.2) 12/28/16 07:16 Albumin 3.2 g/dL (3.5-5.0) L 12/28/16 07:16 Globulin 3.3 gm/dL (2.2-3.9) 12/28/16 07:16 Albumin/Globulin Ratio 1.0 (1.0-2.1) 12/28/16 07:16 TSH 3rd Generation 1.65 mIU/ML (0.46-4.68) 12/24/16 11:10 Discharge Exam - Head Exam Head Exam: NORMAL INSPECTION, NORMOCEPHALIC Discharge Plan - Follow Up Plan Condition: GOOD Disposition: HOME/ ROUTINE
[2017-01-02 17:21] VITALS: PULSE 61; RESP 20; TEMP 98.2; O2SAT 95
[2017-01-02 18:46] VITALS: BP 98/54
== END 2017-01-02 18:45 | disposition home or self-care (01) | DRG 176 ==
LOC: H.TCU 20:12
PROVIDERS: ADMIT Internal Medicine; ATTEND Internal Medicine
DX: I26.99 Other pulmonary embolism without acute cor pulmonale (principal); I10 Essential (primary) hypertension; G47.33 Obstructive sleep apnea (adult) (pediatric); R60.0 Localized edema

== ENCOUNTER 2017-07-18 09:14 | Inpatient (IN) | payer OTHER, MEDICARE ==
[2017-07-18 09:15] VITALS: BMI 37.6
[2017-07-18] MEDS ORDERED: Sodium Chloride 0.9% 1,000 ML IV STA (09:28)
[2017-07-18] MEDS ORDERED: Labetalol 5 mg/ml Inj 20ML IVP STA (09:39)
[2017-07-18 09:41] LABS: VENOUS BLOOD GAS BASE EXCESS 7.6 mmol/L (0.0-2.0); VENOUS BLOOD GAS PCO2 57 mmHg (40-60); VENOUS BLOOD PH 7.39 (7.32-7.43)
[2017-07-18] MEDS ORDERED: Labetalol 5mg/ml (4ml) ONE (09:42)
[2017-07-18 09:54] LABS: BASO % 0.2 % (0.0-2.0); EOS % 0.1 % (0.0-4.0); HEMATOCRIT 47.1 % (35.0-51.0); LYMPH # 0.7 K/uL (1.0-4.3); MEAN CELL VOLUME 87.2 fl (80.0-94.0); MEAN CORPUSCULAR HEMOGLOBIN 28.7 pg (27.0-31.0); MEAN CORPUSCULAR HGB CONC 32.9 g/dL (33.0-37.0); MEAN PLATELET VOLUME 8.8 fl (7.2-11.7); MONO # 0.8 K/uL (0.0-0.8); MONO % 8.3 % (0.0-10.0); NEUT # 7.7 K/uL (1.8-7.0); NEUT % 83.4 % (50.0-75.0); PLATELET COUNT 146 K/uL (130-400); RED CELL DISTRIBUTION WIDTH 14.9 % (11.5-14.5); WHITE BLOOD COUNT 9.2 K/uL (4.8-10.8)
[2017-07-18 10:09] LABS: PARTIAL THROMBOPLASTIN TIME 37.8 Seconds (25.6-37.1)
[2017-07-18 10:15] LABS: ALB/GLOB RATIO 1.4 (1.0-2.1); ALKALINE PHOSPHATASE 107 U/L (38-126); ALT/SGPT 33 U/L (21-72); AST/SGOT 23 U/L (17-59); BILIRUBIN,TOTAL 2.8 mg/dl (0.2-1.3); BLOOD UREA NITROGEN 21 mg/dl (9-20); CALCIUM 9.3 mg/dL (8.4-10.2); CARBON DIOXIDE 25 mmol/L (22-30); CHLORIDE 104 mmol/L (98-107); GFR AFRICAN-AMERICAN > 60; GLUCOSE,RANDOM 123 mg/dL (75-110); LIPASE 28 U/L (23-300); POTASSIUM 4.6 MMOL/L (3.6-5.0); SODIUM 141 mmol/l (132-148); TOTAL PROTEIN 7.7 G/DL (6.3-8.2)
[2017-07-18] MEDS ORDERED: Sodium Chloride 0.9% 50 ML IV ONE (10:26)
[2017-07-18] MEDS ORDERED: Iodixanol 320 MG/ML 100 ML BOTTLE IV ONE (10:26)
--- NOTE | 2017-07-18 10:40 | ED PDOC ---
HPI: Abdomen Time Seen by Provider: 07/18/17 09:20 Chief Complaint (Nursing): Abdominal Pain Chief Complaint (Provider): abdominal pain, shortness of breath History Per: Patient History/Exam Limitations: no limitations Onset/Duration Of Symptoms: Hrs (12), Sudden Onset Location Of Pain/Discomfort: RUQ, Epigastric, Other (back/chest) Associated Symptoms: Chest Pain. denies: Fever, Nausea, Vomiting, Diarrhea, Urinary Symptoms Exacerbating Factors: None Alleviating Factors: None Last Bowel Movement: Today Additional Complaint(s): 71yo male c/o upper abdominal pain since last night around midnight. Pain is sharp, associated with shortness of breath. No prior history of similar symptoms. Denies nausea, vomiting or diarrhea. Had normal BM this morning. Takes eliquis for leaky valve s/p repair at [facility] about 8months ago. Past Medical History Reviewed: Historical Data, Nursing Documentation, Vital Signs Vital Signs: Last Vital Signs Temp Pulse 79 07/18/17 14:00 Resp 12 07/18/17 13:20 BP 186/87 H 07/18/17 13:20 Pulse Ox 98 07/18/17 14:00 - Medical History PMH: Atrial Fibrillation (PAF), HTN, Mitral Valve Prolapse, Pulmonary Embolism ( 2 years ago), Sleep Apnea (CPAP ) Denies: Chronic Kidney Disease - Surgical History Surgical History: Endoscopy, Hernia Repair (bilat) - Family History Family History: States: [place] - Social History Current smoker - smoking cessation education provided: No - Home Medications Home Medications: Ambulatory Orders Medication Instructions Recorded Irbesartan [Avapro] 300 mg PO DAILY 11/15/14 Apixaban [Eliquis] 5 mg PO BID 05/22/16 Cholecalciferol (Vitamin D3) 2,000 unit PO DAILY 09/18/16 [Vitamin D3] Saw [place] Fruit [Saw [place]] 450 mg PO DAILY 09/18/16 Amiodarone [Cordarone] 200 mg PO BID@0900,2100 #60 tab 01/02/17 Aspirin [Aspirin Chewable] 81 mg PO DAILY #30 chew 01/02/17 Bisacodyl [Dulcolax] 10 mg AK DAILY PRN #30 sup 01/02/17 Docusate [Colace] 100 mg PO BID #60 cap 01/02/17 Furosemide [Lasix] 40 mg PO DAILY #30 01/02/17 Lactulose [Enulose] 20 gm PO Q12H PRN 20 Days udc 01/02/17 Multimineral/Multivitamin 1 tab PO DAILY 30 Days tab 01/02/17 [Therapeutic-M Tab] Oxycodone HCl/Acetaminophen 500 ml PO Q6 #20 solution 01/02/17 [Oxycodone-Acetaminophn 5-325/5] Pantoprazole [Protonix EC Tab] 40 mg PO DAILY 30 Days ect 01/02/17 Promethazine DM [Phenergan DM 5 ml PO Q4 PRN 7 Days cup 01/02/17 Syrup] Tamsulosin [Flomax] 0.4 mg PO DAILY 30 Days cap 01/02/17 - Allergies Allergies/Adverse Reactions: Allergies Allergy/AdvReac Type Severity Reaction Status Date / Time No Known Allergies Allergy Verified 11/26/14 16:56 Review of Systems ROS Statement: Except As Marked, All Systems Reviewed And Found Negative Constitutional: Negative for: Fever, Chills Cardiovascular: Negative for: Chest Pain, Palpitations Respiratory: Positive for: Shortness of Breath. Negative for: Cough, Sputum, Wheezing Gastrointestinal: Positive for: Abdominal Pain. Negative for: Nausea, Vomiting Genitourinary Male: Negative for: Dysuria, Frequency Musculoskeletal: Positive for: Back Pain. Negative for: Neck Pain, Arm Pain, Leg Pain Skin: Negative for: Rash, Lesions, Jaundice Neurological: Negative for: Weakness, Numbness, Headache, Dizziness Psych: Negative for: Anxiety Physical Exam - Reviewed Nursing Documentation Reviewed: Yes Vital Signs Reviewed: Yes - Physical Exam Appears: Positive for: Well, Non-toxic, No Acute Distress Head Exam: Positive for: ATRAUMATIC, NORMAL INSPECTION, NORMOCEPHALIC Skin: Positive for: Normal Color, Warm, DRY Eye Exam: Positive for: EOMI, Normal appearance, PERRL ENT: Positive for: Normal ENT Inspection Neck: Positive for: Normal, Painless ROM Cardiovascular/Chest: Positive for: Other (midline scar healed) Respiratory: Positive for: CNT, Normal Breath Sounds Gastrointestinal/Abdominal: Positive for: Soft, Tenderness (mild epigastric tenderness) Back: Positive for: Normal Inspection Extremity: Positive for: Normal ROM. Negative for: Calf Tenderness, Swelling Neurologic/Psych: Positive for: Alert, Oriented. Negative for: Motor/Sensory Deficits - Laboratory Results Result Diagrams: 07/18/17 09:51 07/18/17 09:51 - ECG ECG: Positive for: Interpreted By Me ECG Rhythm: Positive for: Right Bundle Branch Block, Nonspecific Changes Interpretation Of ECG: sinus arrythmia Rate: 79 O2 Sat by Pulse Oximetry: 98 Pulse Ox Interpretation: Normal Medical Decision Making Medical Decision Making: Pt w maked hypertension, IV labetolol initiated and CTA chest/abd/pelv ordered for r/o dissection given pain, hypertension, on anticoagulation. Also consider biliary colic (more likely), atypical ACS, perforated viscus, GI bleed, gastritis, among other diagnoses. Labs, pain control initiated. Accession No. : [id number] Patient Name / ID : AALIYAH JEAN / [id number] Exam Date : 07/18/2017 10:45:06 ( Approved ) Study Comment : Sex / Age : M / 71Y Creator : Paddy Deleon MD Dictator : Paddy Deleon MD Apron Cleaner : Smearer : Paddy Deleon MD Approver2 : Report Date : 07/18/2017 11:39:22 My Comment : PROCEDURE: CT Angiography Chest, Abdomen and Pelvis with and without intravenous contrast HISTORY: SOB, chest/epigastric pain, recent valve repair Prior history of pulmonary embolism currently on Eliquis COMPARISON: 07/18/2016 CT angio for pulmonary embolism. 12/01/2014 CT abdomen pelvis. TECHNIQUE: Contiguous axial images of the chest, abdomen and pelvis were obtained in the phase of aortic enhancement. A noncontrast enhanced CT of the chest was also obtained to evaluate for possible intramural thrombus. Coronal and sagittal reformats were generated. IV dose administered: Radiation dose: Total exam DLP = mGy-cm. This CT exam was performed using one or more of the following dose reduction techniques: Automated exposure control, adjustment of the mA and/or kV according to patient size, and/or use of iterative reconstruction technique. FINDINGS: CT ANGIOGRAPHY OF THE CHEST WITH & WITHOUT CONTRAST: AORTA (CHEST AND ABDOMEN): The thoracic and abdominal aorta are unremarkable, without aneurysm, dissection or rupture. No intramural thrombus identified in the thoracic aorta on the non-contrast ct of the chest. The celiac axis, superior mesenteric artery, inferior mesenteric artery and the renal arteries are widely patent. The pelvic arteries are unremarkable. LUNGS: 7 x 8 x 10 mm pulmonary nodule noncalcified pleural-based adjacent to the major fissure. This has increased slightly since the prior study. MEDIASTINUM: Unremarkable. Normal caliber aorta and pulmonary arterial trunk. No aortic dissection. Normal size heart. LYMPH NODES: Unremarkable. PLEURA: Unremarkable. No pneumothorax. No pleural fluid. BONES: Unremarkable. OTHER FINDINGS: None. CT ANGIOGRAPHY OF THE ABDOMEN AND PELVIS WITH CONTRAST: LIVER: Unremarkable. No gross lesion or ductal dilatation. GALLBLADDER AND BILE DUCTS: Distended gallbladder, gallbladder wall thickening , innumerable gallstones. Pericholecystic inflammatory change consistent with acute cholecystitis. Gallstones were seen on prior studies, the acute inflammatory changes or not. PANCREAS: Unremarkable. No gross lesion or ductal dilatation. SPLEEN: Unremarkable. ADRENALS: Unremarkable. No mass. KIDNEYS AND URETERS: Unremarkable. No hydronephrosis. No solid mass. Incidental finding(s): 2.7 cm simple cyst right kidney VASCULATURE: Unremarkable. No aortic aneurysm. STOMACH AND BOWEL: Unremarkable. No obstruction. No gross mural thickening. APPENDIX: Normal appendix. PERITONEUM: Unremarkable. No free fluid. No free air. LYMPH NODES: Unremarkable. No enlarged lymph nodes. BLADDER: Unremarkable. REPRODUCTIVE: Enlarged prostate and seminal vesicles. BONES: No acute fracture. OTHER FINDINGS: Bilateral fat containing inguinal hernias IMPRESSION: No evidence of aortic aneurysm or dissection. No evidence of pulmonary embolism. Distended gallbladder, gallstones, findings consistent with SC cholecystitis. Patient requested Dr Denzel Nickerson for surgeon and Dr Us for admitting MD ( PMD in [place], not at [facility]) D/W Dr Nickerson, initiate Abx, will need several days Abx and hold Eliquis Call placed to Dr Us who accepted to his service, consult his primary qa architect for clearance, Dr Williamson D/w resident Dr Ibrahim 2pm Disposition - Clinical Impression Clinical Impression: Acute cholecystitis - Patient ED Disposition Is Patient to be Admitted: Yes Counseled Patient/Family Regarding: Studies Performed, Diagnosis - Disposition Disposition Time: 13:15 Condition: FAIR Forms: [employer] (Latvian) - Pt Status Changed To: Hospital Disposition Of: Inpatient - Admit Certification Admit to Inpatient:: After my assessment, the patient will require hospitalization for at least two midnights. This is because of the severity of symptoms shown, intensity of services needed, and/or the medical risk in this patient being treated as an outpatient. - POA Present On Arrival: None
[2017-07-18] MEDS ORDERED: HYDROmorphone 0.5 mg/0.5 ml ISec IVP STA ×2 (11:25→14:20)
[2017-07-18] MEDS ORDERED: HYDROmorphone 0.5 mg/0.5 ml ISec ONE ×2 (11:26→14:22)
--- NOTE | 2017-07-18 11:42 | CT ---
PROCEDURE: CT Angiography Chest, Abdomen and Pelvis with and without intravenous contrast HISTORY: SOB, chest/epigastric pain, recent valve repair Prior history of pulmonary embolism currently on Eliquis COMPARISON: 07/18/2016 CT angio for pulmonary embolism. 12/01/2014 CT abdomen pelvis. TECHNIQUE: Contiguous axial images of the chest, abdomen and pelvis were obtained in the phase of aortic enhancement. A noncontrast enhanced CT of the chest was also obtained to evaluate for possible intramural thrombus. Coronal and sagittal reformats were generated. IV dose administered: Radiation dose: Total exam DLP = mGy-cm. This CT exam was performed using one or more of the following dose reduction techniques: Automated exposure control, adjustment of the mA and/or kV according to patient size, and/or use of iterative reconstruction technique. FINDINGS: CT ANGIOGRAPHY OF THE CHEST WITH & WITHOUT CONTRAST: AORTA (CHEST AND ABDOMEN): The thoracic and abdominal aorta are unremarkable, without aneurysm, dissection or rupture. No intramural thrombus identified in the thoracic aorta on the non-contrast ct of the chest. The celiac axis, superior mesenteric artery, inferior mesenteric artery and the renal arteries are widely patent. The pelvic arteries are unremarkable. LUNGS: 7 x 8 x 10 mm pulmonary nodule noncalcified pleural-based adjacent to the major fissure. This has increased slightly since the prior study. MEDIASTINUM: Unremarkable. Normal caliber aorta and pulmonary arterial trunk. No aortic dissection. Normal size heart. LYMPH NODES: Unremarkable. PLEURA: Unremarkable. No pneumothorax. No pleural fluid. BONES: Unremarkable. OTHER FINDINGS: None. CT ANGIOGRAPHY OF THE ABDOMEN AND PELVIS WITH CONTRAST: LIVER: Unremarkable. No gross lesion or ductal dilatation. GALLBLADDER AND BILE DUCTS: Distended gallbladder, gallbladder wall thickening, innumerable gallstones. Pericholecystic inflammatory change consistent with acute cholecystitis. Gallstones were seen on prior studies, the acute inflammatory changes or not. PANCREAS: Unremarkable. No gross lesion or ductal dilatation. SPLEEN: Unremarkable. ADRENALS: Unremarkable. No mass. KIDNEYS AND URETERS: Unremarkable. No hydronephrosis. No solid mass. Incidental finding(s): 2.7 cm simple cyst right kidney VASCULATURE: Unremarkable. No aortic aneurysm. STOMACH AND BOWEL: Unremarkable. No obstruction. No gross mural thickening. APPENDIX: Normal appendix. PERITONEUM: Unremarkable. No free fluid. No free air. LYMPH NODES: Unremarkable. No enlarged lymph nodes. BLADDER: Unremarkable. REPRODUCTIVE: Enlarged prostate and seminal vesicles. BONES: No acute fracture. OTHER FINDINGS: Bilateral fat containing inguinal hernias IMPRESSION: No evidence of aortic aneurysm or dissection. No evidence of pulmonary embolism. Distended gallbladder, gallstones, findings consistent with SC cholecystitis.
[2017-07-18] MEDS ORDERED: Piperacillin/Tazobact 4.5 GM in Sodium Chloride 0.9% 100 ML IVPB STA (12:02)
[2017-07-18 12:30] LABS: TOTAL CELLS COUNTED 100
[2017-07-18 12:31] LABS: NEUTROPHIL 86 % (42-75)
[2017-07-18 13:23] LABS: URINE BILIRUBIN NEGATIVE (NEGATIVE); URINE BLOOD SMALL (NEGATIVE); URINE COLOR YELLOW (YELLOW); URINE GLUCOSE (UA) NEG (Normal); URINE KETONE TRACE mg/dL (NEGATIVE); URINE LEUKOCYTE ESTERASE NEG Leu/uL (Negative); URINE PROTEIN 30 mg/dL (NEGATIVE); URINE UROBILINOGEN 0.2-1.0 mg/dL (0.2-1.0); WBC URINE 2 /hpf (0-5)
[2017-07-18 13:24] LABS: RBC URINE 9 /hpf (0-3)
--- NOTE | 2017-07-18 14:18 | RAD ---
HISTORY: chest pain/ r/o infiltrate COMPARISON: Chest radiographs 05/19/2016, chest CT without contrast 07/18/2017. TECHNIQUE: Chest PA and lateral FINDINGS: LUNGS: No active pulmonary disease. Elevation of the right hemidiaphragm again evident. PLEURA: No significant pleural effusion identified. No pneumothorax apparent. CARDIOVASCULAR: Borderline cardiomegaly with interval median sternotomy and prosthetic cardiac valve now identified. No pulmonary vascular derangement identified. OSSEOUS STRUCTURES: Sternotomy wires as discussed above. VISUALIZED UPPER ABDOMEN: Normal. OTHER FINDINGS: None. IMPRESSION: No acute infiltrate or pleural effusion bilaterally. Borderline cardiomegaly appears stable with interval prosthetic cardiac valve identified as well as sternotomy wires. Elevated right hemidiaphragm appears stable.
--- NOTE | 2017-07-18 15:10 | CP.PCM.HP ---
<DenveritaNestor bermeo - Last Filed: 07/18/17 16:20> History of Present Illness - History of Present Illness History of Present Illness: 71 y/o male with a PMHx remarkable for HTN, PE (currently on Apixaban), and s/p mitral valve repair December [address] [facility] ED with a 1 day history of worsening epigastric pain and elevated BP. Pt reports pain started yesterday afternoon w/o any triggering event. He noticed he just wasnt as hungry as usual. Reports pain quickly progressed to 10/10, located in the epigastrium, nonradiating, constant, w/o alleviating factors. Pt reports associated SOB, nausea, 2 episodes of NBNB emesis in the hospital and denies diarrhea. Denies recent ETOH abuse. 1st such episode. Reports being in usual state of health before hand. Pt reports taking all medications (including Eliquis) today. PMHx: as above Meds: as per med rec ALL: NKDA PsurgHx: mitral valve repair at [facility] 12/2016, SocialHx: denies tobacco abuse, reports social ETOH use (none this week), denies drug abuse. FamilyHx: had two family members pass secondary to unknown reasons. ED COURSE: Vitals On Presentation: T 98.1, BP: 191/124, HR 91, RR 14 POX: 96% RA PE: ABD: +BS, epigastric tenderness LABS CBC w diff CMP Lipase Troponin Coags IMAGING EKG Chest CT, Abd, Pelvic Consults: Gen/surg Cardiology Present on Admission - Present on Admission Any Indicators Present on Admission: No History of DVT/PE: Yes Past Patient History - Infectious Disease Hx of Infectious Diseases: None - Past Medical History & Family History Past Medical History?: Yes - Past Social History Smoking Status: Never Smoked - CARDIAC Hx Atrial Fibrillation: Yes (PAF) Hx Hypertension: Yes Hx Mitral Valve Prolapse: Yes - PULMONARY Hx Pulmonary Embolism: Yes (2 years ago) Hx Sleep Apnea: Yes (CPAP ) - NEUROLOGICAL Hx Neurological Disorder: No - HEENT Hx HEENT Problems: No - RENAL Hx Chronic Kidney Disease: No - ENDOCRINE/METABOLIC Hx Endocrine Disorders: No - INTEGUMENTARY Hx Dermatological Problems: No - MUSCULOSKELETAL/RHEUMATOLOGICAL Hx Falls: No - GASTROINTESTINAL Hx Gastrointestinal Disorders: No - GENITOURINARY/GYNECOLOGICAL Hx Genitourinary Disorders: Yes Hx Prostate Problems: Yes - PSYCHIATRIC Hx Psychophysiologic Disorder: No Hx Substance Use: No - SURGICAL HISTORY Hx Surgeries: Yes Hx Herniorrhaphy: Yes Hx Valve Replacement: (Mitral Valve Repair with Ring and Closure of Appendage) Other/Comment: HX: CYST REMOVAL OF LEFT SIDE OF NECK-POSTERIOR AND UPPER FOREHEAD. GALINA EPIDURAL INJECTION - ANESTHESIA Hx Anesthesia: Yes Hx Anesthesia Reactions: No Hx Malignant Hyperthermia: No Meds Allergies/Adverse Reactions: Allergies Allergy/AdvReac Type Severity Reaction Status Date / Time No Known Allergies Allergy Verified 11/26/14 16:56 Physical Exam - Constitutional Appears: Non-toxic, No Acute Distress - Head Exam Head Exam: ATRAUMATIC - Eye Exam Eye Exam: EOMI Pupil Exam: PERRL - ENT Exam ENT Exam: Mucous Membranes Moist - Neck Exam Neck exam: Positive for: Full Rom - Respiratory Exam Respiratory Exam: Clear to Auscultation Bilateral, NORMAL BREATHING PATTERN. absent: Rales, Rhonchi, Wheezes - Cardiovascular Exam Cardiovascular Exam: REGULAR RHYTHM, RRR, +S1, +S2, Systolic Murmur. absent: JVD, Rubs - GI/Abdominal Exam GI & Abdominal Exam: Normal Bowel Sounds, Soft. absent: Tenderness - Extremities Exam Extremities exam: Positive for: normal inspection, pedal pulses present. Negative for: calf tenderness - Neurological Exam Neurological exam: Alert, CN II-XII Intact, Oriented x3 - Psychiatric Exam Psychiatric exam: Normal Affect, Normal Mood - Skin Skin Exam: Dry, Intact Results - Vital Signs Recent Vital Signs: Last Vital Signs Temp Pulse 78 07/18/17 14:33 Resp 16 07/18/17 14:33 BP 136/74 07/18/17 14:33 Pulse Ox 97 07/18/17 14:33 - Labs Result Diagrams: 07/18/17 09:51 07/18/17 09:51 Labs: Laboratory Results - last 24 hr 07/18/17 07/18/17 07/18/17 09:35 09:51 09:51 WBC 9.2 RBC 5.40 Hgb 15.5 D Hct 47.1 MCV 87.2 MCH 28.7 MCHC 32.9 L RDW 14.9 H Plt Count 146 D MPV 8.8 Neut % (Auto) 83.4 H Lymph % (Auto) 8.0 L [place] % (Auto) 8.3 Eos % (Auto) 0.1 Baso % (Auto) 0.2 Neut # 7.7 H Lymph # 0.7 L [place] # 0.8 Eos # 0.0 Baso # 0.0 Neutrophils % (Manual) 86 H Lymphocytes % (Manual) 6 L Monocytes % (Manual) 9 Toxic Granulation Present Platelet Estimate Normal Anisocytosis (manual) Slight Tear Drop Cells Slight Ovalocytes Slight PT INR APTT pO2 20 L VBG pH 7.39 VBG pCO2 57 VBG HCO3 29.1 VBG Total CO2 36.2 H VBG O2 Sat (Calc) 35.1 L VBG Base Excess 7.6 H VBG Potassium 5.4 H Sodium 137.0 141 Chloride 103.0 104 Glucose 130 H Lactate 1.4 FiO2 21.0 Potassium 4.6 Carbon Dioxide 25 Anion Gap 16 BUN 21 H Creatinine 1.0 Est GFR ( Amer) > 60 Est GFR (Non-Af Amer) > 60 POC Glucose (mg/dL) Random Glucose 123 H Calcium 9.3 Total Bilirubin 2.8 H AST 23 ALT 33 Alkaline Phosphatase 107 Total Creatine Kinase 79 Troponin I 0.0130 Total Protein 7.7 Albumin 4.5 Globulin 3.3 Albumin/Globulin Ratio 1.4 Lipase 28 Venous Blood Potassium 5.4 H Urine Color Urine Clarity Urine pH Ur Specific [place] Urine Protein Urine Glucose (UA) Urine Ketones Urine Blood Urine Nitrate Urine Bilirubin Urine Urobilinogen Ur Leukocyte Esterase Urine RBC (Auto) Urine Microscopic WBC 07/18/17 07/18/17 07/18/17 09:51 10:01 13:00 WBC RBC Hgb Hct MCV MCH MCHC RDW Plt Count MPV Neut % (Auto) Lymph % (Auto) [place] % (Auto) Eos % (Auto) Baso % (Auto) Neut # Lymph # [place] # Eos # Baso # Neutrophils % (Manual) Lymphocytes % (Manual) Monocytes % (Manual) Toxic Granulation Platelet Estimate Anisocytosis (manual) Tear Drop Cells Ovalocytes PT 13.3 H INR 1.2 APTT 37.8 H pO2 VBG pH VBG pCO2 VBG HCO3 VBG Total CO2 VBG O2 Sat (Calc) VBG Base Excess VBG Potassium Sodium Chloride Glucose Lactate FiO2 Potassium Carbon Dioxide Anion Gap BUN Creatinine Est GFR ( Amer) Est GFR (Non-Af Amer) POC Glucose (mg/dL) 124 H Random Glucose Calcium Total Bilirubin AST ALT Alkaline Phosphatase Total Creatine Kinase Troponin I Total Protein Albumin Globulin Albumin/Globulin Ratio Lipase Venous Blood Potassium Urine Color Yellow Urine Clarity Clear Urine pH 6.0 Ur Specific [place] 1.057 H Urine Protein 30 Urine Glucose (UA) Neg Urine Ketones Trace Urine Blood Small Urine Nitrate Negative Urine Bilirubin Negative Urine Urobilinogen 0.2-1.0 Ur Leukocyte Esterase Neg Urine RBC (Auto) 9 H Urine Microscopic WBC 2 Assessment & Plan (1) Acute cholecystitis Assessment and Plan: NPO IV fluids IV ABx pain control MRCP as per surgery team Status: Acute (2) HTN (hypertension) Assessment and Plan: monitor vitals Status: Chronic Priority: Low <Yasir Yost - Last Filed: 07/20/17 07:00> Results - Vital Signs Recent Vital Signs: Last Vital Signs Temp 98.2 F 07/20/17 00:37 Pulse 88 07/20/17 00:37 Resp 20 07/20/17 00:37 BP 91/58 L 07/20/17 00:37 Pulse Ox 98 07/20/17 00:37 - Labs Result Diagrams: 07/19/17 05:40 07/19/17 05:40 Labs: Laboratory Results - last 24 hr 07/19/17 19:58 Direct Bilirubin 0.5 H Attending/Attestation - Attestation I have personally seen and examined this patient.: Yes I have fully participated in the care of the patient.: Yes I have reviewed all pertinent clinical information: Yes
--- NOTE | 2017-07-18 15:45 | CP.PCM.CON ---
History of Present Illness - History of Present Illness History of Present Illness: General Surgery consult note for Dr. Nickerson consulted for: cholecystitis Patient is a 71M with PMH of HTN, pulmonary embolism and mitral valve open repair 6 months ago, currently on eliquis who presented with severe epigastric pain for 1 day, associated with nausea. Patient states that pain began yesterday afternoon as a sharp epigastric pain, associated with middle upper back pain, not worsened or alleviated by anything. Pain worsened overnight and patient came into the ER. Patient had two episodes of non-bloody, non-bilious emesis in the ER. Patient is still in significant pain after several doses of morphine. Patient reports some chills but denies any diarrhea, fevers, constipation, melena, hematochezia, hematemesis, dysuria, hematuria, chest pain , or SOB. Patient has never had an episode like this before. Patient took eliquis today. PMH: HTN, MVP s/p repair, Pulmonary embolism, DVT, sleep apnea PSH: BL inguinal hernia repair, subcutaneous cyst removal from head, open mitral valve repair 7 months ago All: NKDA Social: denies smoking history, rare ETOH, and denies drug use Review of Systems - Review of Systems All systems: reviewed and no additional remarkable complaints except (as per HPI ) - Constitutional Constitutional: Chills. absent: Weakness - Cardiovascular Cardiovascular: Edema. absent: Chest Pain, Chest Pain at Rest, Dyspnea - Respiratory Respiratory: absent: Cough, Dyspnea on Exertion, Chest Congestion - Gastrointestinal Gastrointestinal: Abdominal Pain, Nausea, Vomiting. absent: Constipation, Diarrhea, Hematochezia, Melena - Genitourinary Genitourinary: absent: Change in Urinary Stream, Dysuria, Hematuria - Musculoskeletal Musculoskeletal: Back Pain (mid upper back). absent: Neck Pain, Numbness, Tingling - Integumentary Integumentary: absent: Lesions - Neurological Neurological: absent: Numbness, Tingling, Weakness Past Patient History - Infectious Disease Hx of Infectious Diseases: None - Past Medical History & Family History Past Medical History?: Yes - Past Social History Smoking Status: Never Smoked Alcohol: Occasional Drugs: Denies Home Situation {Lives}: With Family - CARDIAC Hx Atrial Fibrillation: Yes (PAF) Hx Hypertension: Yes Hx Mitral Valve Prolapse: Yes - PULMONARY Hx Pulmonary Embolism: Yes (2 years ago) Hx Sleep Apnea: Yes (CPAP ) - NEUROLOGICAL Hx Neurological Disorder: No - HEENT Hx HEENT Problems: No - RENAL Hx Chronic Kidney Disease: No - ENDOCRINE/METABOLIC Hx Endocrine Disorders: No - INTEGUMENTARY Hx Dermatological Problems: No - MUSCULOSKELETAL/RHEUMATOLOGICAL Hx Falls: No - GASTROINTESTINAL Hx Gastrointestinal Disorders: No - GENITOURINARY/GYNECOLOGICAL Hx Genitourinary Disorders: Yes Hx Prostate Problems: Yes - PSYCHIATRIC Hx Psychophysiologic Disorder: No Hx Substance Use: No - SURGICAL HISTORY Hx Surgeries: Yes Hx Herniorrhaphy: Yes Hx Valve Replacement: (Mitral Valve Repair with Ring and Closure of Appendage) Other/Comment: HX: CYST REMOVAL OF LEFT SIDE OF NECK-POSTERIOR AND UPPER FOREHEAD. GALINA EPIDURAL INJECTION - ANESTHESIA Hx Anesthesia: Yes Hx Anesthesia Reactions: No Hx Malignant Hyperthermia: No Meds Allergies/Adverse Reactions: Allergies Allergy/AdvReac Type Severity Reaction Status Date / Time No Known Allergies Allergy Verified 11/26/14 16:56 - Medications Medications: Current Medications Hydromorphone HCl (Dilaudid) 0.5 mg IVP Q3 PRN PRN Reason: Pain, severe (8-10) Stop: 07/20/17 14:47 Hydromorphone HCl (Dilaudid) 1 mg IVP Q6 PRN PRN Reason: Pain, severe (8-10) Sodium Chloride (Sodium Chloride 0.9%) 1,000 mls @ 125 mls/hr IV .Q8H STA Stop: 07/18/17 17:27 Last Admin: 07/18/17 10:00 Dose: 125 mls/hr Piperacillin Sod/Tazobactam (Sod 3.375 gm/ Sodium Chloride) 100 mls @ 100 mls/ hr IVPB Q6H JOSELINE PRN Reason: Protocol Lactated Ringer's (Lactated Ringer's) 1,000 mls @ 150 mls/hr IV .Q6H40M JOSELINE Stop: 07/21/17 14:46 Metoclopramide HCl (Reglan) 10 mg IVP Q6 PRN PRN Reason: Nausea/Vomiting Morphine Sulfate (Morphine) 4 mg IVP Q4 PRN PRN Reason: Pain, moderate (4-7) Ondansetron HCl (Zofran Inj) 4 mg IVP Q6 PRN PRN Reason: Nausea/Vomiting Physical Exam - Constitutional Appears: Non-toxic, In Acute Distress - Head Exam Head Exam: ATRAUMATIC, NORMOCEPHALIC - Eye Exam Eye Exam: Normal appearance. absent: Conjunctival injection, Scleral icterus - ENT Exam ENT Exam: Mucous Membranes Moist - Respiratory Exam Respiratory Exam: NORMAL BREATHING PATTERN. absent: Accessory Muscle Use, Respiratory Distress - Cardiovascular Exam Cardiovascular Exam: Tachycardia, REGULAR RHYTHM - GI/Abdominal Exam GI & Abdominal Exam: Soft, Tenderness (epigastrium>RUQ>LUQ). absent: Distended , Hernia - Extremities Exam Extremities exam: Positive for: pedal edema, pedal pulses present. Negative for : calf tenderness - Back Exam Back exam: absent: CVA tenderness (L), CVA tenderness (R), rash noted, tenderness - Neurological Exam Neurological exam: Alert, Oriented x3 - Psychiatric Exam Psychiatric exam: Normal Affect, Normal Mood - Skin Skin Exam: Dry, Normal Color, Warm Results - Vital Signs Recent Vital Signs: Last Vital Signs Temp 98.1 F 07/18/17 15:38 Pulse 75 07/18/17 15:38 Resp 16 07/18/17 15:38 BP 141/87 07/18/17 15:38 Pulse Ox 96 07/18/17 15:38 - Labs Result Diagrams: 07/18/17 09:51 07/18/17 09:51 Labs: Laboratory Results - last 24 hr 07/18/17 07/18/17 07/18/17 09:35 09:51 09:51 WBC 9.2 RBC 5.40 Hgb 15.5 D Hct 47.1 MCV 87.2 MCH 28.7 MCHC 32.9 L RDW 14.9 H Plt Count 146 D MPV 8.8 Neut % (Auto) 83.4 H Lymph % (Auto) 8.0 L [place] % (Auto) 8.3 Eos % (Auto) 0.1 Baso % (Auto) 0.2 Neut # 7.7 H Lymph # 0.7 L [place] # 0.8 Eos # 0.0 Baso # 0.0 Neutrophils % (Manual) 86 H Lymphocytes % (Manual) 6 L Monocytes % (Manual) 9 Toxic Granulation Present Platelet Estimate Normal Anisocytosis (manual) Slight Tear Drop Cells Slight Ovalocytes Slight PT INR APTT pO2 20 L VBG pH 7.39 VBG pCO2 57 VBG HCO3 29.1 VBG Total CO2 36.2 H VBG O2 Sat (Calc) 35.1 L VBG Base Excess 7.6 H VBG Potassium 5.4 H Sodium 137.0 141 Chloride 103.0 104 Glucose 130 H Lactate 1.4 FiO2 21.0 Potassium 4.6 Carbon Dioxide 25 Anion Gap 16 BUN 21 H Creatinine 1.0 Est GFR ( Amer) > 60 Est GFR (Non-Af Amer) > 60 POC Glucose (mg/dL) Random Glucose 123 H Calcium 9.3 Total Bilirubin 2.8 H AST 23 ALT 33 Alkaline Phosphatase 107 Total Creatine Kinase 79 Troponin I 0.0130 Total Protein 7.7 Albumin 4.5 Globulin 3.3 Albumin/Globulin Ratio 1.4 Lipase 28 Venous Blood Potassium 5.4 H Urine Color Urine Clarity Urine pH Ur Specific [place] Urine Protein Urine Glucose (UA) Urine Ketones Urine Blood Urine Nitrate Urine Bilirubin Urine Urobilinogen Ur Leukocyte Esterase Urine RBC (Auto) Urine Microscopic WBC 07/18/17 07/18/17 07/18/17 09:51 10:01 13:00 WBC RBC Hgb Hct MCV MCH MCHC RDW Plt Count MPV Neut % (Auto) Lymph % (Auto) [place] % (Auto) Eos % (Auto) Baso % (Auto) Neut # Lymph # [place] # Eos # Baso # Neutrophils % (Manual) Lymphocytes % (Manual) Monocytes % (Manual) Toxic Granulation Platelet Estimate Anisocytosis (manual) Tear Drop Cells Ovalocytes PT 13.3 H INR 1.2 APTT 37.8 H pO2 VBG pH VBG pCO2 VBG HCO3 VBG Total CO2 VBG O2 Sat (Calc) VBG Base Excess VBG Potassium Sodium Chloride Glucose Lactate FiO2 Potassium Carbon Dioxide Anion Gap BUN Creatinine Est GFR ( Amer) Est GFR (Non-Af Amer) POC Glucose (mg/dL) 124 H Random Glucose Calcium Total Bilirubin AST ALT Alkaline Phosphatase Total Creatine Kinase Troponin I Total Protein Albumin Globulin Albumin/Globulin Ratio Lipase Venous Blood Potassium Urine Color Yellow Urine Clarity Clear Urine pH 6.0 Ur Specific [place] 1.057 H Urine Protein 30 Urine Glucose (UA) Neg Urine Ketones Trace Urine Blood Small Urine Nitrate Negative Urine Bilirubin Negative Urine Urobilinogen 0.2-1.0 Ur Leukocyte Esterase Neg Urine RBC (Auto) 9 H Urine Microscopic WBC 2 - Imaging and Cardiology CT scan - abdomen Status: Image reviewed by me, Report reviewed by me Assessment & Plan - Assessment and Plan (Free Text) Assessment: 71M with acute onset epigastric abdominal pain, nausea and vomiting concerning for acute cholecystitis Plan: -No immediate surgical intervention at this time: patient took eliquis today -Total bilirubin is 2.8. Recommend MRCP to rule out choledocholithiasis -trend CBC and CMP -Hold eliquis if permitted by cardiology -IVF -IV antibiotics -PRN pain and nausea medication -incentive spirometer, OOB, encourage ambulation -Attain medical and cardiac clearance prior to surgery -Further surgical planning pending MRCP results Discussed with Dr. Krishan Cornelius, PGY2
[2017-07-18] MEDS: Lactated Ringer's 1,000 ML IV SCH ×2 (16:58→22:14)
[2017-07-18] MEDS ORDERED: Piperacillin/Tazobact 3.375 GM in Sodium Chloride 0.9% 100 ML IVPB SCH (18:00)
--- NOTE | 2017-07-18 18:14 | CARD ---
APPROVED REPORT EKG Measurement Heart [id number] <Conclusion> Sinus rhythm with marked sinus arrhythmia with 1st degree AV block Right bundle branch block Abnormal ECG
[2017-07-18] MEDS: HYDROmorphone 0.5 mg/0.5 ml ISec IVP PRN ×2 (20:26→23:28)
[2017-07-18] MEDS: Piperacillin/Tazobact 3.375 GM in Sodium Chloride 0.9% 100 ML IVPB SCH (21:12)
[2017-07-19] MEDS: Piperacillin/Tazobact 3.375 GM in Sodium Chloride 0.9% 100 ML IVPB SCH ×4 (02:15→21:16)
[2017-07-19] MEDS: Lactated Ringer's 1,000 ML IV SCH ×4 (02:17→16:24)
[2017-07-19] MEDS: HYDROmorphone 0.5 mg/0.5 ml ISec IVP PRN (02:20)
[2017-07-19 06:32] LABS: HEMATOCRIT 45.4 % (35.0-51.0); LYMPH # 0.5 K/uL (1.0-4.3); LYMPH % 3.4 % (20.0-40.0); MEAN CELL VOLUME 86.7 fl (80.0-94.0); MEAN CORPUSCULAR HEMOGLOBIN 28.7 pg (27.0-31.0); MEAN PLATELET VOLUME 9.4 fl (7.2-11.7); MONO # 2.1 K/uL (0.0-0.8); NEUT # 13.3 K/uL (1.8-7.0); NEUT % 83.6 % (50.0-75.0); RED CELL DISTRIBUTION WIDTH 15.2 % (11.5-14.5); WHITE BLOOD COUNT 15.9 K/uL (4.8-10.8)
[2017-07-19 06:41] LABS: ALB/GLOB RATIO 1.3 (1.0-2.1); ALKALINE PHOSPHATASE 86 U/L (38-126); ALT/SGPT 39 U/L (21-72); AST/SGOT 28 U/L (17-59); BILIRUBIN,TOTAL 4.4 mg/dl (0.2-1.3); BLOOD UREA NITROGEN 19 mg/dl (9-20); CALCIUM 8.9 mg/dL (8.4-10.2); CARBON DIOXIDE 28 mmol/L (22-30); CHLORIDE 101 mmol/L (98-107); GFR AFRICAN-AMERICAN > 60; GLUCOSE,RANDOM 116 mg/dL (75-110); POTASSIUM 4.1 MMOL/L (3.6-5.0); SODIUM 141 mmol/l (132-148); TOTAL PROTEIN 7.1 G/DL (6.3-8.2)
--- NOTE | 2017-07-19 10:23 | CP.PCM.PN ---
<Nestor Mueller - Last Filed: 07/20/17 06:39> Subjective - Date & Time of Evaluation Date of Evaluation: 07/19/17 Time of Evaluation: 10:23 - Subjective Subjective: pt seen and examined at bedside. No acute events overnight. 1 episode of NBNB emesis. No other complaints. Pain controlled with medications. Afebrile. Objective - Vital Signs/Intake and Output Vital Signs (last 24 hours): Temp Pulse Resp BP Pulse Ox 98.4 F 90 20 129/79 95 07/19/17 07:21 07/19/17 07:21 07/19/17 07:21 07/19/17 07:21 07/19/17 07:21 - Medications Medications: Current Medications Hydromorphone HCl (Dilaudid) 0.5 mg IVP Q3 PRN PRN Reason: Pain, severe (8-10) Stop: 07/20/17 14:47 Last Admin: 07/19/17 02:20 Dose: 0.5 mg Hydromorphone HCl (Dilaudid) 1 mg IVP Q6 PRN PRN Reason: Pain, severe (8-10) Last Admin: 07/18/17 16:49 Dose: 1 mg Lactated Ringer's (Lactated Ringer's) 1,000 mls @ 150 mls/hr IV .Q6H40M JOSELINE Stop: 07/21/17 14:46 Last Admin: 07/19/17 04:05 Dose: Not Given Piperacillin Sod/Tazobactam (Sod 3.375 gm/ Sodium Chloride) 100 mls @ 100 mls/ hr IVPB 0300,0900,1500,2100 JOSELINE PRN Reason: Protocol Last Admin: 07/19/17 08:11 Dose: 100 mls/hr Metoclopramide HCl (Reglan) 10 mg IVP Q6 PRN PRN Reason: Nausea/Vomiting Morphine Sulfate (Morphine) 4 mg IVP Q4 PRN PRN Reason: Pain, moderate (4-7) Last Admin: 07/19/17 05:44 Dose: 4 mg Ondansetron HCl (Zofran Inj) 4 mg IVP Q6 PRN PRN Reason: Nausea/Vomiting Last Admin: 07/18/17 20:38 Dose: 4 mg Pantoprazole Sodium (Protonix Inj) 40 mg IVP BID [facility] Last Admin: 07/19/17 08:12 Dose: 40 mg - Labs Labs: 07/19/17 05:40 07/19/17 05:40 PT 13.3 Seconds (9.8-13.1) H 07/18/17 09:51 INR 1.2 (0.9-1.2) 07/18/17 09:51 APTT 37.8 Seconds (25.6-37.1) H 07/18/17 09:51 - Constitutional Appears: Non-toxic, No Acute Distress - ENT Exam ENT Exam: Mucous Membranes Moist - Respiratory Exam Respiratory Exam: Clear to Ausculation Bilateral, NORMAL BREATHING PATTERN. absent: Rales, Rhonchi, Wheezes - Cardiovascular Exam Cardiovascular Exam: REGULAR RHYTHM, RRR, +S1, +S2, Murmur. absent: JVD, Rubs - GI/Abdominal Exam GI & Abdominal Exam: Soft, Tenderness, Normal Bowel Sounds. absent: Distended, Firm, Guarding, Rigid - Extremities Exam Extremities Exam: Normal Capillary Refill, Pedal Edema. absent: Calf Tenderness , Tenderness - Neurological Exam Neurological Exam: Alert, Awake, CN II-XII Intact, Oriented x3 Assessment and Plan (1) Acute cholecystitis Assessment & Plan: Monitor CBC/Vitals, elevated WBC today IV ABx IV Fluids NPO Hold eliquis Incentive spiromtery awaiting surgery clearance via cardio/hem onc Pt for MRCP once mitral valve is cleared compatable. samia for surgery later this week Status: Acute (2) HTN (hypertension) Assessment & Plan: controlled as ordered Status: Chronic <Hector Hernandez - Last Filed: 07/23/17 06:44> Objective - Vital Signs/Intake and Output Vital Signs (last 24 hours): Temp Pulse Resp BP Pulse Ox 98.5 F 81 19 126/79 97 07/23/17 00:00 07/23/17 00:00 07/23/17 00:00 07/23/17 00:00 07/23/17 00:00 - Medications Medications: Current Medications Amiodarone HCl (Cordarone) 100 mg PO DAILY [facility] Last Admin: 07/22/17 09:32 Dose: 100 mg Hydromorphone HCl (Dilaudid) 1 mg IVP Q6 PRN PRN Reason: Pain, severe (8-10) Last Admin: 07/22/17 09:29 Dose: 1 mg Piperacillin Sod/Tazobactam (Sod 3.375 gm/ Sodium Chloride) 100 mls @ 100 mls/ hr IVPB 0300,0900,1500,2100 [facility] PRN Reason: Protocol Last Admin: 07/23/17 03:38 Dose: 100 mls/hr Lactated Ringer's (Lactated Ringer's) 1,000 mls @ 125 mls/hr IV .Q8H [facility] Last Admin: 07/22/17 23:58 Dose: 125 mls/hr Metoclopramide HCl (Reglan) 10 mg IVP Q6 PRN PRN Reason: Nausea/Vomiting Ondansetron HCl (Zofran Inj) 4 mg IVP Q6 PRN PRN Reason: Nausea/Vomiting Last Admin: 07/18/17 20:38 Dose: 4 mg Pantoprazole Sodium (Protonix Inj) 40 mg IV BID [facility] Last Admin: 07/22/17 17:28 Dose: 40 mg Potassium Chloride (K-Dur 20 Meq Er Tab) 20 meq PO BID [facility] Last Admin: 07/22/17 16:46 Dose: 20 meq Tamsulosin HCl (Flomax) 0.4 mg PO DAILY [facility] Last Admin: 07/22/17 09:32 Dose: 0.4 mg - Labs Labs: 07/22/17 05:30 07/22/17 05:30 PT 13.3 Seconds (9.8-13.1) H 07/18/17 09:51 INR 1.2 (0.9-1.2) 07/18/17 09:51 APTT 37.8 Seconds (25.6-37.1) H 07/18/17 09:51
--- NOTE | 2017-07-19 12:37 | CP.PCM.CON ---
History of Present Illness - History of Present Illness History of Present Illness: CC: Abdominal pain. HPI: I have been requested by Dr. Whitfield on cardiology consultation for Mr. Will who is a 71 year old gentleman well known to our practice and has a history of mitral valve repair (12/2016), Pafib, DVT and PE who presents to [facility] for evaluation of mid epigastric abdominal pain which began sunday night without any clear precipitating factors. He took an over the counter analgesic which helped minimally and the follow day the pain was unrelenting and associated with nausea and vomiting. He denies fever, chills, diarrhea, chest pain or dyspnea. A CT scan of the abdomen and pelvis reveals gallstones and evidence of cholecyctitis for which the patient is being treated and surgery is being considered. Given the patient's cardiac history and anticoagulation, cardiology consultation has been requested. The patient is asymptomatic from a cardiac point. An ECG reveals NSR at 79 BPM, prolonged MD interval and RBBB and was reviewed by me personally. Review of Systems - Constitutional Constitutional: As Per HPI, Fatigue, Weakness - EENT Additional comments: Negative HEENT - Cardiovascular Additional comments: Negative for chest pain, palpitations, dyspnea, orthopnea or PND - Respiratory Additional comments: Denies shortness of breath, cough, wheezing, hemoptysis - Gastrointestinal Gastrointestinal: Abdominal Pain, Bloating, Dyspepsia, Nausea - Genitourinary Additional comments: Denies dysuria - Musculoskeletal Additional comments: Denies swelling, strength, mobility or weakness - Integumentary Integumentary: absent: Rash, Skin Ulcer, Swelling Additional comments: Denies erythema, rash, ulcers - Neurological Neurological: absent: Abnormal Gait, Abnormal Speech, Focal Weakness, Syncope, Weakness - Psychiatric Psychiatric: Anxiety. absent: Confusion, Depression - Endocrine Endocrine: Fatigue. absent: Palpitations - Hematologic/Lymphatic Hematologic: As Per HPI. absent: Easy Bruising Past Patient History - Infectious Disease Hx of Infectious Diseases: None - Past Medical History & Family History Past Medical History?: Yes - Past Social History Smoking Status: Former Smoker Alcohol: None Drugs: Denies - CARDIAC Hx Cardiac Disorders: Yes Hx Angina: No Hx Atrial Fibrillation: Yes (PAF) Hx Circulatory Problems: No Hx Congestive Heart Failure: No Hx Heart Attack: No Hx Heart Murmur: Yes Hx Hypertension: Yes Hx Mitral Valve Prolapse: Yes - PULMONARY Hx Respiratory Disorders: Yes Hx Pulmonary Embolism: Yes (2 years ago) Hx Sleep Apnea: Yes (CPAP ) - NEUROLOGICAL Hx Neurological Disorder: No - HEENT Hx HEENT Problems: No - RENAL Hx Chronic Kidney Disease: No - ENDOCRINE/METABOLIC Hx Endocrine Disorders: No - HEMATOLOGICAL/ONCOLOGICAL Other/Comment: Hypercoagulable state - INTEGUMENTARY Hx Dermatological Problems: No - MUSCULOSKELETAL/RHEUMATOLOGICAL Hx Musculoskeletal Disorders: No Hx Falls: No - GASTROINTESTINAL Hx Gastrointestinal Disorders: No - GENITOURINARY/GYNECOLOGICAL Hx Genitourinary Disorders: Yes Hx Prostate Problems: Yes - PSYCHIATRIC Hx Psychophysiologic Disorder: No Hx Substance Use: No - SURGICAL HISTORY Hx Surgeries: Yes Hx Herniorrhaphy: Yes Hx Valve Replacement: (Mitral Valve Repair with Ring and Closure of Appendage) Other/Comment: HX: CYST REMOVAL OF LEFT SIDE OF NECK-POSTERIOR AND UPPER FOREHEAD. GALINA EPIDURAL INJECTION - ANESTHESIA Hx Anesthesia: Yes Hx Anesthesia Reactions: No Hx Malignant Hyperthermia: No Meds Allergies/Adverse Reactions: Allergies Allergy/AdvReac Type Severity Reaction Status Date / Time No Known Allergies Allergy Verified 11/26/14 16:56 - Medications Medications: Current Medications Hydromorphone HCl (Dilaudid) 0.5 mg IVP Q3 PRN PRN Reason: Pain, severe (8-10) Stop: 07/20/17 14:47 Last Admin: 07/19/17 02:20 Dose: 0.5 mg Hydromorphone HCl (Dilaudid) 1 mg IVP Q6 PRN PRN Reason: Pain, severe (8-10) Last Admin: 07/18/17 16:49 Dose: 1 mg Lactated Ringer's (Lactated Ringer's) 1,000 mls @ 150 mls/hr IV .Q6H40M JOSELINE Stop: 07/21/17 14:46 Last Admin: 07/19/17 04:05 Dose: Not Given Piperacillin Sod/Tazobactam (Sod 3.375 gm/ Sodium Chloride) 100 mls @ 100 mls/ hr IVPB 0300,0900,1500,2100 JOSELINE PRN Reason: Protocol Last Admin: 07/19/17 08:11 Dose: 100 mls/hr Metoclopramide HCl (Reglan) 10 mg IVP Q6 PRN PRN Reason: Nausea/Vomiting Morphine Sulfate (Morphine) 4 mg IVP Q4 PRN PRN Reason: Pain, moderate (4-7) Last Admin: 07/19/17 05:44 Dose: 4 mg Ondansetron HCl (Zofran Inj) 4 mg IVP Q6 PRN PRN Reason: Nausea/Vomiting Last Admin: 07/18/17 20:38 Dose: 4 mg Pantoprazole Sodium (Protonix Inj) 40 mg IVP BID JOSELINE Last Admin: 07/19/17 08:12 Dose: 40 mg Physical Exam - Constitutional Appears: Well, Non-toxic, No Acute Distress, Younger Than Stated Age - Head Exam Head Exam: ATRAUMATIC, NORMAL INSPECTION, NORMOCEPHALIC - Eye Exam Eye Exam: EOMI, Normal appearance, PERRL - ENT Exam ENT Exam: Mucous Membranes Dry, Normal Exam - Neck Exam Neck exam: Positive for: Full Rom, Normal Inspection - Respiratory Exam Respiratory Exam: Clear to Auscultation Bilateral, NORMAL BREATHING PATTERN. absent: Chest Wall Tenderness, Decreased Breath Sounds, Rhonchi, Wheezes - Cardiovascular Exam Cardiovascular Exam: REGULAR RHYTHM, +S1, +S2, Systolic Murmur. absent: Clicks , Gallop - GI/Abdominal Exam GI & Abdominal Exam: Tenderness. absent: Pulsatile Mass, Rebound, Rigid - Rectal Exam Rectal Exam: Deferred - Extremities Exam Extremities exam: Positive for: full ROM, normal inspection. Negative for: joint swelling, pedal edema - Back Exam Back exam: NORMAL INSPECTION. absent: CVA tenderness (L), CVA tenderness (R) - Neurological Exam Neurological exam: Alert, Oriented x3 - Psychiatric Exam Psychiatric exam: Normal Affect, Normal Mood - Skin Skin Exam: Dry, Intact, Normal Color, Warm Results - Vital Signs Recent Vital Signs: Last Vital Signs Temp 98.4 F 07/19/17 07:21 Pulse 90 07/19/17 07:21 Resp 20 07/19/17 07:21 BP 129/79 07/19/17 07:21 Pulse Ox 95 07/19/17 07:21 - Labs Result Diagrams: 07/19/17 05:40 07/19/17 05:40 Labs: Laboratory Results - last 24 hr 07/18/17 07/18/17 07/19/17 09:51 13:00 05:40 WBC 15.9 H D RBC 5.24 Hgb 15.0 Hct 45.4 MCV 86.7 MCH 28.7 MCHC 33.0 RDW 15.2 H Plt Count 160 MPV 9.4 Neut % (Auto) 83.6 H Lymph % (Auto) 3.4 L [place] % (Auto) 13.0 H Eos % (Auto) 0.0 Baso % (Auto) 0.0 Neut # 13.3 H Lymph # 0.5 L [place] # 2.1 H Eos # 0.0 Baso # 0.0 Neutrophils % (Manual) 86 H Lymphocytes % (Manual) 6 L Monocytes % (Manual) 9 Toxic Granulation Present Platelet Estimate Normal Anisocytosis (manual) Slight Tear Drop Cells Slight Ovalocytes Slight Sodium Potassium Chloride Carbon Dioxide Anion Gap BUN Creatinine Est GFR ( Amer) Est GFR (Non-Af Amer) Random Glucose Calcium Total Bilirubin AST ALT Alkaline Phosphatase Total Protein Albumin Globulin Albumin/Globulin Ratio Urine Color Yellow Urine Clarity Clear Urine pH 6.0 Ur Specific [place] 1.057 H Urine Protein 30 Urine Glucose (UA) Neg Urine Ketones Trace Urine Blood Small Urine Nitrate Negative Urine Bilirubin Negative Urine Urobilinogen 0.2-1.0 Ur Leukocyte Esterase Neg Urine RBC (Auto) 9 H Urine Microscopic WBC 2 07/19/17 05:40 WBC RBC Hgb Hct MCV MCH MCHC RDW Plt Count MPV Neut % (Auto) Lymph % (Auto) Slope % (Auto) Eos % (Auto) Baso % (Auto) Neut # Lymph # Slope # Eos # Baso # Neutrophils % (Manual) Lymphocytes % (Manual) Monocytes % (Manual) Toxic Granulation Platelet Estimate Anisocytosis (manual) Tear Drop Cells Ovalocytes Sodium 141 Potassium 4.1 Chloride 101 Carbon Dioxide 28 Anion Gap 16 BUN 19 Creatinine 0.8 Est GFR ( Amer) > 60 Est GFR (Non-Af Amer) > 60 Random Glucose 116 H Calcium 8.9 Total Bilirubin 4.4 H AST 28 ALT 39 Alkaline Phosphatase 86 Total Protein 7.1 Albumin 4.0 Globulin 3.1 Albumin/Globulin Ratio 1.3 Urine Color Urine Clarity Urine pH Ur Specific [place] Urine Protein Urine Glucose (UA) Urine Ketones Urine Blood Urine Nitrate Urine Bilirubin Urine Urobilinogen Ur Leukocyte Esterase Urine RBC (Auto) Urine Microscopic WBC Assessment & Plan - Assessment and Plan (Free Text) Assessment: 1. Abdominal pain. 2. Gallstones. 3. S/p MVR. 4. PAFIB. 5. H/o DVT/PE. 6. HTN.
--- NOTE | 2017-07-19 12:55 | CP.PCM.PN ---
Subjective - Date & Time of Evaluation Date of Evaluation: 07/19/17 Time of Evaluation: 08:50 - Subjective Subjective: Patient seen and examined this AM. NAEO. Patient states pain is mildly improved and controlled by current medication. Reports one more episode of non-bloody emesis last night but no nausea or vomiting currently. States he is passing gas but no bowel movements since hospitalization. Objective - Vital Signs/Intake and Output Vital Signs (last 24 hours): Temp Pulse Resp BP Pulse Ox 98.4 F 90 20 129/79 95 07/19/17 07:21 07/19/17 07:21 07/19/17 07:21 07/19/17 07:21 07/19/17 07:21 - Medications Medications: Current Medications Hydromorphone HCl (Dilaudid) 0.5 mg IVP Q3 PRN PRN Reason: Pain, severe (8-10) Stop: 07/20/17 14:47 Last Admin: 07/19/17 02:20 Dose: 0.5 mg Hydromorphone HCl (Dilaudid) 1 mg IVP Q6 PRN PRN Reason: Pain, severe (8-10) Last Admin: 07/18/17 16:49 Dose: 1 mg Lactated Ringer's (Lactated Ringer's) 1,000 mls @ 150 mls/hr IV .Q6H40M JOSELINE Stop: 07/21/17 14:46 Last Admin: 07/19/17 04:05 Dose: Not Given Piperacillin Sod/Tazobactam (Sod 3.375 gm/ Sodium Chloride) 100 mls @ 100 mls/ hr IVPB 0300,0900,1500,2100 JOSELINE PRN Reason: Protocol Last Admin: 07/19/17 08:11 Dose: 100 mls/hr Metoclopramide HCl (Reglan) 10 mg IVP Q6 PRN PRN Reason: Nausea/Vomiting Morphine Sulfate (Morphine) 4 mg IVP Q4 PRN PRN Reason: Pain, moderate (4-7) Last Admin: 07/19/17 05:44 Dose: 4 mg Ondansetron HCl (Zofran Inj) 4 mg IVP Q6 PRN PRN Reason: Nausea/Vomiting Last Admin: 07/18/17 20:38 Dose: 4 mg Pantoprazole Sodium (Protonix Inj) 40 mg IVP BID [facility] Last Admin: 07/19/17 08:12 Dose: 40 mg - Labs Labs: 07/19/17 05:40 07/19/17 05:40 PT 13.3 Seconds (9.8-13.1) H 07/18/17 09:51 INR 1.2 (0.9-1.2) 07/18/17 09:51 APTT 37.8 Seconds (25.6-37.1) H 07/18/17 09:51 - Constitutional Appears: Non-toxic - Head Exam Head Exam: ATRAUMATIC, NORMOCEPHALIC - Eye Exam Eye Exam: Scleral icterus. absent: Conjunctival injection, Normal appearance - ENT Exam ENT Exam: Mucous Membranes Moist, Normal Oropharynx - Respiratory Exam Respiratory Exam: NORMAL BREATHING PATTERN. absent: Accessory Muscle Use, Respiratory Distress - Cardiovascular Exam Cardiovascular Exam: RRR - GI/Abdominal Exam GI & Abdominal Exam: Distended (mild), Soft, Tenderness (mild tenderness to palpation in the epigastrium). absent: Rebound - Extremities Exam Extremities Exam: absent: Calf Tenderness, Pedal Edema, Tenderness - Neurological Exam Neurological Exam: Alert, Awake, Oriented x3 - Psychiatric Exam Psychiatric exam: Normal Affect, Normal Mood - Skin Skin Exam: Dry, Intact, Warm Additional comments: mild jaundice Assessment and Plan - Assessment and Plan (Free Text) Assessment: 71M with acute cholecystitis possible choledocholithiasis Plan: -Increased total bilirubin and WBC from yesterday. Patient should undergo MRCP but must determine if his Mitral valve repair is MRI compatible -Continue to trend CBC and CMP -Continue NPO pending MRCP -Continue to hold Eliquis -IV abx, IVF -GI prophylaxis -PRN pain and nausea medication -Patient may ambulate as tolerated and is encouraged to do so. Incentive spirometer use encouraged -Recommend GI consult -Further surgical recs pending MRCP result Seen and discussed with Dr. Krishan Cornelius, PGY2
--- NOTE | 2017-07-19 16:24 | CP.PCM.CON ---
History of Present Illness - History of Present Illness History of Present Illness: This ia a 71 yrs old male who was admitted to the hospital with severe epigastric pain in the RUQ area. He had vomoiting a couple of times but no blood or bile in the vomitus. No diarrhea, or constipation. No rectal bleeding either. he has a h/o mitral valve prolapse for which he had surgery. He also has A Fib and was on eliquis. He took the last dose on at 6 am. He is scheduled for a MRCP to r/o choledocolitiasis Pt also has a h/o DVT and PE,and HTN Past Patient History - Infectious Disease Hx of Infectious Diseases: None - Past Medical History & Family History Past Medical History?: Yes - Past Social History Smoking Status: Former Smoker Alcohol: None Drugs: Denies - CARDIAC Hx Cardiac Disorders: Yes Hx Angina: No Hx Atrial Fibrillation: Yes (PAF) Hx Circulatory Problems: No Hx Congestive Heart Failure: No Hx Heart Attack: No Hx Heart Murmur: Yes Hx Hypertension: Yes Hx Mitral Valve Prolapse: Yes - PULMONARY Hx Respiratory Disorders: Yes Hx Pulmonary Embolism: Yes (2 years ago) Hx Sleep Apnea: Yes (CPAP ) - NEUROLOGICAL Hx Neurological Disorder: No - HEENT Hx HEENT Problems: No - RENAL Hx Chronic Kidney Disease: No - ENDOCRINE/METABOLIC Hx Endocrine Disorders: No - HEMATOLOGICAL/ONCOLOGICAL Other/Comment: Hypercoagulable state - INTEGUMENTARY Hx Dermatological Problems: No - MUSCULOSKELETAL/RHEUMATOLOGICAL Hx Musculoskeletal Disorders: No Hx Falls: No - GASTROINTESTINAL Hx Gastrointestinal Disorders: No - GENITOURINARY/GYNECOLOGICAL Hx Genitourinary Disorders: Yes Hx Prostate Problems: Yes - PSYCHIATRIC Hx Psychophysiologic Disorder: No Hx Substance Use: No - SURGICAL HISTORY Hx Surgeries: Yes Hx Herniorrhaphy: Yes Hx Valve Replacement: (Mitral Valve Repair with Ring and Closure of Appendage) Other/Comment: HX: CYST REMOVAL OF LEFT SIDE OF NECK-POSTERIOR AND UPPER FOREHEAD. GALINA EPIDURAL INJECTION - ANESTHESIA Hx Anesthesia: Yes Hx Anesthesia Reactions: No Hx Malignant Hyperthermia: No Meds Allergies/Adverse Reactions: Allergies Allergy/AdvReac Type Severity Reaction Status Date / Time No Known Allergies Allergy Verified 11/26/14 16:56 - Medications Medications: Current Medications Enoxaparin Sodium (Lovenox) 100 mg SC Q12 JOSELINE PRN Reason: Protocol Hydromorphone HCl (Dilaudid) 0.5 mg IVP Q3 PRN PRN Reason: Pain, severe (8-10) Stop: 07/20/17 14:47 Last Admin: 07/19/17 02:20 Dose: 0.5 mg Hydromorphone HCl (Dilaudid) 1 mg IVP Q6 PRN PRN Reason: Pain, severe (8-10) Last Admin: 07/18/17 16:49 Dose: 1 mg Lactated Ringer's (Lactated Ringer's) 1,000 mls @ 150 mls/hr IV .Q6H40M [facility] Stop: 07/21/17 14:46 Last Admin: 07/19/17 04:05 Dose: Not Given Piperacillin Sod/Tazobactam (Sod 3.375 gm/ Sodium Chloride) 100 mls @ 100 mls/ hr IVPB 0300,0900,1500,2100 [facility] PRN Reason: Protocol Last Admin: 07/19/17 15:20 Dose: 100 mls/hr Metoclopramide HCl (Reglan) 10 mg IVP Q6 PRN PRN Reason: Nausea/Vomiting Morphine Sulfate (Morphine) 4 mg IVP Q4 PRN PRN Reason: Pain, moderate (4-7) Last Admin: 07/19/17 05:44 Dose: 4 mg Ondansetron HCl (Zofran Inj) 4 mg IVP Q6 PRN PRN Reason: Nausea/Vomiting Last Admin: 07/18/17 20:38 Dose: 4 mg Pantoprazole Sodium (Protonix Inj) 40 mg IVP BID [facility] Last Admin: 07/19/17 16:04 Dose: 40 mg Physical Exam - Additional Findings Additional findings: PHysical exam; Pt is alert, awake in no distress neck; supple, no adenopahty Chest; Clear, no rales or rhonchi Heart; RSR, no murmur Abd; Soft, no mass. no h/s megaly, there is tenderness in the RUQ area. Results - Vital Signs Recent Vital Signs: Last Vital Signs Temp 98.4 F 07/19/17 07:21 Pulse 90 07/19/17 07:21 Resp 20 07/19/17 07:21 BP 129/79 07/19/17 07:21 Pulse Ox 95 07/19/17 07:21 - Labs Result Diagrams: 07/19/17 05:40 07/19/17 05:40 Labs: Laboratory Results - last 24 hr 07/19/17 07/19/17 05:40 05:40 WBC 15.9 H D RBC 5.24 Hgb 15.0 Hct 45.4 MCV 86.7 MCH 28.7 MCHC 33.0 RDW 15.2 H Plt Count 160 MPV 9.4 Neut % (Auto) 83.6 H Lymph % (Auto) 3.4 L [place] % (Auto) 13.0 H Eos % (Auto) 0.0 Baso % (Auto) 0.0 Neut # 13.3 H Lymph # 0.5 L [place] # 2.1 H Eos # 0.0 Baso # 0.0 Sodium 141 Potassium 4.1 Chloride 101 Carbon Dioxide 28 Anion Gap 16 BUN 19 Creatinine 0.8 Est GFR ( Amer) > 60 Est GFR (Non-Af Amer) > 60 Random Glucose 116 H Calcium 8.9 Total Bilirubin 4.4 H AST 28 ALT 39 Alkaline Phosphatase 86 Total Protein 7.1 Albumin 4.0 Globulin 3.1 Albumin/Globulin Ratio 1.3 Assessment & Plan - Assessment and Plan (Free Text) Assessment: Impression; Acute cholecystitis H/O takintg plavix for a A fib last dose 36 hrs ago. Plan: Plan; Agree re holding eliquis until after usrgery . Pt needs 2.5 to 3 days after stopping the eliquis to go through a surgical procedure. He should be ready for surgery by Sunday the 15th am.
[2017-07-19] MEDS ORDERED: Enoxaparin 100 mg Syringe SC SCH (16:45)
[2017-07-19] MEDS ORDERED: Gadodiamide 287 MG/ML VIAL (15ML) IV ONE (16:54)
[2017-07-19] MEDS ORDERED: Sodium Chloride 0.9% 50 ML IV ONE (16:54)
[2017-07-19] MEDS ORDERED: Pantoprazole 40 mg EC Tab PO SCH (17:15)
[2017-07-20] MEDS: Lactated Ringer's 1,000 ML IV SCH ×4 (01:36→21:55)
[2017-07-20] MEDS: Piperacillin/Tazobact 3.375 GM in Sodium Chloride 0.9% 100 ML IVPB SCH ×4 (03:04→21:54)
[2017-07-20] MEDS: Enoxaparin 100 mg Syringe SC SCH ×2 (04:07→16:10)
[2017-07-20 06:29] LABS: BASO % 0.1 % (0.0-2.0); EOS % 0.1 % (0.0-4.0); HEMATOCRIT 40.1 % (35.0-51.0); LYMPH # 0.8 K/uL (1.0-4.3); LYMPH % 5.7 % (20.0-40.0); MEAN CELL VOLUME 86.7 fl (80.0-94.0); MEAN CORPUSCULAR HEMOGLOBIN 28.8 pg (27.0-31.0); MEAN CORPUSCULAR HGB CONC 33.2 g/dL (33.0-37.0); MEAN PLATELET VOLUME 9.4 fl (7.2-11.7); MONO # 1.8 K/uL (0.0-0.8); MONO % 13.3 % (0.0-10.0); NEUT % 80.8 % (50.0-75.0); RED CELL DISTRIBUTION WIDTH 15.2 % (11.5-14.5); WHITE BLOOD COUNT 13.6 K/uL (4.8-10.8)
[2017-07-20 06:53] LABS: ALB/GLOB RATIO 1.1 (1.0-2.1); ALKALINE PHOSPHATASE 63 U/L (38-126); ALT/SGPT 29 U/L (21-72); AST/SGOT 22 U/L (17-59); BILIRUBIN,TOTAL 4.6 mg/dl (0.2-1.3); BLOOD UREA NITROGEN 24 mg/dl (9-20); CALCIUM 8.7 mg/dL (8.4-10.2); CARBON DIOXIDE 28 mmol/L (22-30); CHLORIDE 103 mmol/L (98-107); GFR AFRICAN-AMERICAN > 60; GLUCOSE,RANDOM 85 mg/dL (75-110); POTASSIUM 3.7 MMOL/L (3.6-5.0); SODIUM 142 mmol/l (132-148); TOTAL PROTEIN 6.3 G/DL (6.3-8.2)
--- NOTE | 2017-07-20 09:02 | CP.PCM.PN ---
Subjective - Date & Time of Evaluation Date of Evaluation: 07/20/17 Time of Evaluation: 08:58 - Subjective Subjective: Surgery: Dr. Munoz Patient feeling better today. Pain resolved. He denies n/v/f/c. He underwent MRCP yesterday. Per nursing no acute events overnight. Objective - Vital Signs/Intake and Output Vital Signs (last 24 hours): Temp Pulse Resp BP Pulse Ox 98.4 F 85 20 121/77 95 07/20/17 08:07 07/20/17 08:07 07/20/17 08:07 07/20/17 08:07 07/20/17 08:07 - Medications Medications: Current Medications Amiodarone HCl (Cordarone) 100 mg PO DAILY [facility] Last Admin: 07/20/17 08:24 Dose: 100 mg Enoxaparin Sodium (Lovenox) 100 mg SC Q12@0400,1600 JOSELINE PRN Reason: Protocol Last Admin: 07/20/17 04:07 Dose: 100 mg Hydromorphone HCl (Dilaudid) 0.5 mg IVP Q3 PRN PRN Reason: Pain, severe (8-10) Stop: 07/20/17 14:47 Last Admin: 07/19/17 02:20 Dose: 0.5 mg Hydromorphone HCl (Dilaudid) 1 mg IVP Q6 PRN PRN Reason: Pain, severe (8-10) Last Admin: 07/18/17 16:49 Dose: 1 mg Lactated Ringer's (Lactated Ringer's) 1,000 mls @ 150 mls/hr IV .Q6H40M [facility] Stop: 07/21/17 14:46 Last Admin: 07/20/17 08:23 Dose: 150 mls/hr Piperacillin Sod/Tazobactam (Sod 3.375 gm/ Sodium Chloride) 100 mls @ 100 mls/ hr IVPB 0300,0900,1500,2100 JOSELINE PRN Reason: Protocol Last Admin: 07/20/17 08:20 Dose: 100 mls/hr Losartan Potassium (Cozaar) 100 mg PO DAILY [facility] Last Admin: 07/20/17 08:24 Dose: 100 mg Metoclopramide HCl (Reglan) 10 mg IVP Q6 PRN PRN Reason: Nausea/Vomiting Morphine Sulfate (Morphine) 4 mg IVP Q4 PRN PRN Reason: Pain, moderate (4-7) Last Admin: 07/19/17 05:44 Dose: 4 mg Ondansetron HCl (Zofran Inj) 4 mg IVP Q6 PRN PRN Reason: Nausea/Vomiting Last Admin: 07/18/17 20:38 Dose: 4 mg Pantoprazole Sodium (Protonix Inj) 40 mg IVP BID [facility] Last Admin: 07/20/17 08:19 Dose: 40 mg Pantoprazole Sodium (Protonix Ec Tab) 40 mg PO Q48H [facility] Last Admin: 07/19/17 18:38 Dose: Not Given Tamsulosin HCl (Flomax) 0.4 mg PO DAILY [facility] Last Admin: 07/20/17 08:25 Dose: 0.4 mg - Labs Labs: 07/20/17 05:50 07/20/17 05:50 PT 13.3 Seconds (9.8-13.1) H 07/18/17 09:51 INR 1.2 (0.9-1.2) 07/18/17 09:51 APTT 37.8 Seconds (25.6-37.1) H 07/18/17 09:51 - Constitutional Appears: Non-toxic, No Acute Distress - Head Exam Head Exam: ATRAUMATIC, NORMOCEPHALIC - Eye Exam Eye Exam: EOMI, Normal appearance - ENT Exam ENT Exam: Mucous Membranes Moist - Respiratory Exam Respiratory Exam: NORMAL BREATHING PATTERN. absent: Respiratory Distress - Cardiovascular Exam Cardiovascular Exam: REGULAR RHYTHM. absent: Tachycardia - GI/Abdominal Exam GI & Abdominal Exam: Soft. absent: Distended, Guarding, Tenderness, Rebound - Neurological Exam Neurological Exam: Alert, Awake - Psychiatric Exam Psychiatric exam: Normal Affect, Normal Mood - Skin Skin Exam: Dry, Normal Color, Warm Assessment and Plan - Assessment and Plan (Free Text) Assessment: 71 y/o male w/ RUQ abdominal pain and Hyperbilirubenemia Plan: -MRCP: dilated CBD 9mm, no evidence of CBD stone on report. Gallbladder w/ evidence of cholecystitis -f/u GI recs -cont NPO -IVFs -IV abx -OOB -IS use -hold anticoagulation, ok w/ cardio, for possible OR -will d/[place] Dr. [place]
--- NOTE | 2017-07-20 10:29 | MRI ---
MRI abdomen without/with IV contrast MRCP Indication: Possible choledocholithiasis Technique: Multiplanar, multi sequence magnetic resonance images of the abdomen were obtained without and with the administration of intravenous gadolinium using a multi phase abdomen protocol. Rotating maximum intensity projection images of the biliary system were generated. A total of [id number] images submitted for review Comparison: CTA chest, abdomen, and pelvis without and with IV contrast performed 07/18/17 Findings: Examination limited by motion. Gallbladder wall thickening/pericholecystic edema. Distended gallbladder. Cholelithiasis. There is no intrahepatic biliary ductal dilatation. The common bile duct appears mildly dilated measuring approximately 8 mm in diameter. No focal filling defect identified to suggest choledocholithiasis. The pancreatic duct appears within normal limits of caliber; no focal filling defect identified. Mild bilateral adrenal gland hypertrophy. The liver, spleen, pancreas, and adrenal glands appear otherwise unremarkable. The kidneys enhance symmetrically. Bilateral T2 hyperintense T1 hypo intense lesions without evidence of post-contrast enhancement within bilateral kidneys consistent with cysts. No evidence of hydronephrosis or obstructing calculus. No bulky adenopathy identified. Limited views of the inferior thorax demonstrates bibasilar atelectasis. No acute osseous abnormality is detected. Impression: Distended gallbladder with evidence of gallbladder wall thickening/pericholecystic edema. Cholelithiasis. Appearance consistent with acute cholecystitis. Correlate clinically. The common bile duct appears mildly dilated without focal filling defect identified. Bilateral renal cysts. Mild bilateral adrenal gland hypertrophy. Preliminary impression was provided by virtual radiologic.
--- NOTE | 2017-07-20 11:28 | CP.PCM.PN ---
<Nestor Mueller - Last Filed: 07/20/17 11:33> Subjective - Date & Time of Evaluation Date of Evaluation: 07/20/17 Time of Evaluation: 07:00 - Subjective Subjective: pt seen and examined at bedside with attending this morning. No acute events overnight. Reports feeling much better this morning. MRCP done, awaiting official read. No episodes of emesis. NPO, tolerating iv abx and fluid therapy. No new complaints. Objective - Vital Signs/Intake and Output Vital Signs (last 24 hours): Temp Pulse Resp BP Pulse Ox 98.4 F 85 20 121/77 95 07/20/17 08:07 07/20/17 08:07 07/20/17 08:07 07/20/17 08:07 07/20/17 08:07 - Medications Medications: Current Medications Amiodarone HCl (Cordarone) 100 mg PO DAILY [facility] Last Admin: 07/20/17 08:24 Dose: 100 mg Enoxaparin Sodium (Lovenox) 100 mg SC Q12@0400,1600 [facility] PRN Reason: Protocol Last Admin: 07/20/17 04:07 Dose: 100 mg Hydromorphone HCl (Dilaudid) 0.5 mg IVP Q3 PRN PRN Reason: Pain, severe (8-10) Stop: 07/20/17 14:47 Last Admin: 07/19/17 02:20 Dose: 0.5 mg Hydromorphone HCl (Dilaudid) 1 mg IVP Q6 PRN PRN Reason: Pain, severe (8-10) Last Admin: 07/18/17 16:49 Dose: 1 mg Lactated Ringer's (Lactated Ringer's) 1,000 mls @ 150 mls/hr IV .Q6H40M [facility] Stop: 07/21/17 14:46 Last Admin: 07/20/17 08:23 Dose: 150 mls/hr Piperacillin Sod/Tazobactam (Sod 3.375 gm/ Sodium Chloride) 100 mls @ 100 mls/ hr IVPB 0300,0900,1500,2100 [facility] PRN Reason: Protocol Last Admin: 07/20/17 08:20 Dose: 100 mls/hr Losartan Potassium (Cozaar) 100 mg PO DAILY [facility] Last Admin: 07/20/17 08:24 Dose: 100 mg Metoclopramide HCl (Reglan) 10 mg IVP Q6 PRN PRN Reason: Nausea/Vomiting Morphine Sulfate (Morphine) 4 mg IVP Q4 PRN PRN Reason: Pain, moderate (4-7) Last Admin: 07/19/17 05:44 Dose: 4 mg Ondansetron HCl (Zofran Inj) 4 mg IVP Q6 PRN PRN Reason: Nausea/Vomiting Last Admin: 07/18/17 20:38 Dose: 4 mg Pantoprazole Sodium (Protonix Inj) 40 mg IVP BID [facility] Last Admin: 07/20/17 08:19 Dose: 40 mg Pantoprazole Sodium (Protonix Ec Tab) 40 mg PO Q48H [facility] Last Admin: 07/19/17 18:38 Dose: Not Given Tamsulosin HCl (Flomax) 0.4 mg PO DAILY [facility] Last Admin: 07/20/17 08:25 Dose: 0.4 mg - Labs Labs: 07/20/17 05:50 07/20/17 05:50 PT 13.3 Seconds (9.8-13.1) H 07/18/17 09:51 INR 1.2 (0.9-1.2) 07/18/17 09:51 APTT 37.8 Seconds (25.6-37.1) H 07/18/17 09:51 - Constitutional Appears: Non-toxic, No Acute Distress - ENT Exam ENT Exam: Mucous Membranes Moist - Respiratory Exam Respiratory Exam: Clear to Ausculation Bilateral, NORMAL BREATHING PATTERN. absent: Rales, Rhonchi, Wheezes - Cardiovascular Exam Cardiovascular Exam: REGULAR RHYTHM, RRR, +S1, +S2, Murmur. absent: Tachycardia , JVD - GI/Abdominal Exam GI & Abdominal Exam: Soft, Normal Bowel Sounds. absent: Distended, Firm, Guarding, Rigid, Tenderness - Extremities Exam Extremities Exam: Normal Capillary Refill, Normal Inspection, Pedal Edema ( chronic pedal edema). absent: Calf Tenderness, Tenderness - Neurological Exam Neurological Exam: Alert, Awake, Oriented x3 - Skin Skin Exam: Dry, Intact, Normal Color, Warm Assessment and Plan (1) Acute cholecystitis Assessment & Plan: Afebrile, WBC trending downwards -NPO -pain management -IV Abx/IV Fluids -MRCP: dilated CBD 9mm, no evidence of CBD stone on report. Gallbladder w/ evidence of cholecystitis -possible OR -Gastroenterology consult appreciated -OOB /ambulation -incentive spirometry -held anticoagulation -seen by Hem/onc, cleared for surgery Sunday -seen by cardiology, ok for surgery Status: Acute (2) HTN (hypertension) Assessment & Plan: controlled Status: Chronic <Stevie Yosto Alex - Last Filed: 07/23/17 07:06> Objective - Vital Signs/Intake and Output Vital Signs (last 24 hours): Temp Pulse Resp BP Pulse Ox 98.5 F 81 19 126/79 97 07/23/17 00:00 07/23/17 00:00 07/23/17 00:00 07/23/17 00:00 07/23/17 00:00 - Medications Medications: Current Medications Amiodarone HCl (Cordarone) 100 mg PO DAILY [facility] Last Admin: 07/22/17 09:32 Dose: 100 mg Hydromorphone HCl (Dilaudid) 1 mg IVP Q6 PRN PRN Reason: Pain, severe (8-10) Last Admin: 07/22/17 09:29 Dose: 1 mg Piperacillin Sod/Tazobactam (Sod 3.375 gm/ Sodium Chloride) 100 mls @ 100 mls/ hr IVPB 0300,0900,1500,2100 [facility] PRN Reason: Protocol Last Admin: 07/23/17 03:38 Dose: 100 mls/hr Lactated Ringer's (Lactated Ringer's) 1,000 mls @ 125 mls/hr IV .Q8H [facility] Last Admin: 07/22/17 23:58 Dose: 125 mls/hr Metoclopramide HCl (Reglan) 10 mg IVP Q6 PRN PRN Reason: Nausea/Vomiting Ondansetron HCl (Zofran Inj) 4 mg IVP Q6 PRN PRN Reason: Nausea/Vomiting Last Admin: 07/18/17 20:38 Dose: 4 mg Pantoprazole Sodium (Protonix Inj) 40 mg IV BID [facility] Last Admin: 07/22/17 17:28 Dose: 40 mg Potassium Chloride (K-Dur 20 Meq Er Tab) 20 meq PO BID [facility] Last Admin: 07/22/17 16:46 Dose: 20 meq Tamsulosin HCl (Flomax) 0.4 mg PO DAILY [facility] Last Admin: 07/22/17 09:32 Dose: 0.4 mg - Labs Labs: 07/23/17 06:05 07/23/17 06:05 PT 13.3 Seconds (9.8-13.1) H 07/18/17 09:51 INR 1.2 (0.9-1.2) 07/18/17 09:51 APTT 37.8 Seconds (25.6-37.1) H 07/18/17 09:51 Attending/Attestation - Attestation I have personally seen and examined this patient.: Yes I have fully participated in the care of the patient.: Yes I have reviewed all pertinent clinical information, including history, physical exam and plan: Yes
--- NOTE | 2017-07-20 13:47 | CP.PCM.PN ---
Subjective - Date & Time of Evaluation Date of Evaluation: 07/20/17 Time of Evaluation: 13:53 - Subjective Subjective: Patient felling better in NAd .Denies chest pain, SOB or palpitations. Awaiting for surgery. Objective - Vital Signs/Intake and Output Vital Signs (last 24 hours): Temp Pulse Resp BP Pulse Ox 98.4 F 85 20 121/77 95 07/20/17 08:07 07/20/17 08:07 07/20/17 08:07 07/20/17 08:07 07/20/17 08:07 - Medications Medications: Current Medications Amiodarone HCl (Cordarone) 100 mg PO DAILY [facility] Last Admin: 07/20/17 08:24 Dose: 100 mg Enoxaparin Sodium (Lovenox) 100 mg SC Q12@0400,1600 [facility] PRN Reason: Protocol Last Admin: 07/20/17 04:07 Dose: 100 mg Hydromorphone HCl (Dilaudid) 0.5 mg IVP Q3 PRN PRN Reason: Pain, severe (8-10) Stop: 07/20/17 14:47 Last Admin: 07/19/17 02:20 Dose: 0.5 mg Hydromorphone HCl (Dilaudid) 1 mg IVP Q6 PRN PRN Reason: Pain, severe (8-10) Last Admin: 07/18/17 16:49 Dose: 1 mg Lactated Ringer's (Lactated Ringer's) 1,000 mls @ 150 mls/hr IV .Q6H40M [facility] Stop: 07/21/17 14:46 Last Admin: 07/20/17 08:23 Dose: 150 mls/hr Piperacillin Sod/Tazobactam (Sod 3.375 gm/ Sodium Chloride) 100 mls @ 100 mls/ hr IVPB 0300,0900,1500,2100 [facility] PRN Reason: Protocol Last Admin: 07/20/17 08:20 Dose: 100 mls/hr Losartan Potassium (Cozaar) 100 mg PO DAILY [facility] Last Admin: 07/20/17 08:24 Dose: 100 mg Metoclopramide HCl (Reglan) 10 mg IVP Q6 PRN PRN Reason: Nausea/Vomiting Morphine Sulfate (Morphine) 4 mg IVP Q4 PRN PRN Reason: Pain, moderate (4-7) Last Admin: 07/19/17 05:44 Dose: 4 mg Ondansetron HCl (Zofran Inj) 4 mg IVP Q6 PRN PRN Reason: Nausea/Vomiting Last Admin: 07/18/17 20:38 Dose: 4 mg Pantoprazole Sodium (Protonix Inj) 40 mg IVP BID [facility] Last Admin: 07/20/17 08:19 Dose: 40 mg Pantoprazole Sodium (Protonix Ec Tab) 40 mg PO Q48H [facility] Last Admin: 07/19/17 18:38 Dose: Not Given Tamsulosin HCl (Flomax) 0.4 mg PO DAILY [facility] Last Admin: 07/20/17 08:25 Dose: 0.4 mg - Labs Labs: 07/20/17 05:50 07/20/17 05:50 PT 13.3 Seconds (9.8-13.1) H 07/18/17 09:51 INR 1.2 (0.9-1.2) 07/18/17 09:51 APTT 37.8 Seconds (25.6-37.1) H 07/18/17 09:51 - Constitutional Appears: Non-toxic, No Acute Distress - Head Exam Head Exam: ATRAUMATIC, NORMOCEPHALIC - Eye Exam Eye Exam: EOMI, Normal appearance - ENT Exam ENT Exam: Mucous Membranes Moist - Neck Exam Neck Exam: Full ROM, Normal Inspection - Respiratory Exam Respiratory Exam: Clear to Ausculation Bilateral - Cardiovascular Exam Cardiovascular Exam: REGULAR RHYTHM - GI/Abdominal Exam GI & Abdominal Exam: Soft, Tenderness (mild RUQ), Normal Bowel Sounds - Rectal Exam Rectal Exam: Deferred - Extremities Exam Extremities Exam: Full ROM, Normal Inspection - Back Exam Back Exam: NORMAL INSPECTION - Neurological Exam Neurological Exam: Alert, Oriented x3 - Psychiatric Exam Psychiatric exam: Normal Affect Assessment and Plan - Assessment and Plan (Free Text) Assessment: 1 Cholecystitis 2 HTN 3 MVR Plan: Continuo present treatment Awaiting surgery.
[2017-07-21] MEDS: Lactated Ringer's 1,000 ML IV SCH ×2 (03:00→09:00)
[2017-07-21] MEDS: Piperacillin/Tazobact 3.375 GM in Sodium Chloride 0.9% 100 ML IVPB SCH ×4 (03:10→21:12)
[2017-07-21] MEDS: Enoxaparin 100 mg Syringe SC SCH ×2 (03:13→16:09)
[2017-07-21 07:06] LABS: BASO % 0.2 % (0.0-2.0); EOS # 0.1 K/uL (0.0-0.7); EOS % 0.9 % (0.0-4.0); HEMATOCRIT 40.4 % (35.0-51.0); LYMPH # 1.2 K/uL (1.0-4.3); LYMPH % 13.8 % (20.0-40.0); MEAN CELL VOLUME 87.7 fl (80.0-94.0); MEAN CORPUSCULAR HEMOGLOBIN 28.7 pg (27.0-31.0); MEAN CORPUSCULAR HGB CONC 32.7 g/dL (33.0-37.0); MEAN PLATELET VOLUME 9.7 fl (7.2-11.7); MONO # 1.1 K/uL (0.0-0.8); MONO % 12.6 % (0.0-10.0); NEUT # 6.5 K/uL (1.8-7.0); NEUT % 72.5 % (50.0-75.0); NRBC % 0.1 % (0.0-0.0); RED CELL DISTRIBUTION WIDTH 14.8 % (11.5-14.5); WHITE BLOOD COUNT 8.9 K/uL (4.8-10.8)
[2017-07-21 07:26] LABS: ALB/GLOB RATIO 1.2 (1.0-2.1); ALKALINE PHOSPHATASE 69 U/L (38-126); ALT/SGPT 34 U/L (21-72); AST/SGOT 22 U/L (17-59); BILIRUBIN,TOTAL 3.9 mg/dl (0.2-1.3); BLOOD UREA NITROGEN 21 mg/dl (9-20); CALCIUM 8.5 mg/dL (8.4-10.2); CARBON DIOXIDE 24 mmol/L (22-30); CHLORIDE 104 mmol/L (98-107); GFR AFRICAN-AMERICAN > 60; GLUCOSE,RANDOM 76 mg/dL (75-110); POTASSIUM 3.7 MMOL/L (3.6-5.0); SODIUM 140 mmol/l (132-148); TOTAL PROTEIN 6.3 G/DL (6.3-8.2)
--- NOTE | 2017-07-21 10:25 | CP.PCM.PN ---
Subjective - Date & Time of Evaluation Date of Evaluation: 07/21/17 Time of Evaluation: 10:23 - Subjective Subjective: pt seen and examined at bedside this morning, no acute events overnight. Afebrile. Lying in bed comfortably, NAD. Pt denies any pain this morning. Denies any episodes of N/V/D. Reports feeling much better overall. Was advanced o CLD yesterday, and has tolerated w/o difficulty. OOB/ambulating w/o issue. No new complaints. Denies fever/chills, headaches, changes in vision, CP/SOB/ palpitations, N/V/D/C, urinary symptoms, numbness/tingling, leg pain. Objective - Vital Signs/Intake and Output Vital Signs (last 24 hours): Temp Pulse Resp BP Pulse Ox 97.4 F L 78 20 126/71 95 07/21/17 07:35 07/21/17 07:35 07/21/17 07:35 07/21/17 07:35 07/21/17 07:35 - Medications Medications: Current Medications Amiodarone HCl (Cordarone) 100 mg PO DAILY [facility] Last Admin: 07/20/17 08:24 Dose: 100 mg Enoxaparin Sodium (Lovenox) 100 mg SC Q12@0400,1600 [facility] PRN Reason: Protocol Last Admin: 07/21/17 03:13 Dose: 100 mg Hydromorphone HCl (Dilaudid) 1 mg IVP Q6 PRN PRN Reason: Pain, severe (8-10) Last Admin: 07/18/17 16:49 Dose: 1 mg Lactated Ringer's (Lactated Ringer's) 1,000 mls @ 150 mls/hr IV .Q6H40M [facility] Stop: 07/21/17 14:46 Last Admin: 07/21/17 03:00 Dose: Not Given Piperacillin Sod/Tazobactam (Sod 3.375 gm/ Sodium Chloride) 100 mls @ 100 mls/ hr IVPB 0300,0900,1500,2100 [facility] PRN Reason: Protocol Last Admin: 07/21/17 03:10 Dose: 100 mls/hr Losartan Potassium (Cozaar) 100 mg PO DAILY [facility] Last Admin: 07/20/17 08:24 Dose: 100 mg Metoclopramide HCl (Reglan) 10 mg IVP Q6 PRN PRN Reason: Nausea/Vomiting Morphine Sulfate (Morphine) 4 mg IVP Q4 PRN PRN Reason: Pain, moderate (4-7) Last Admin: 07/19/17 05:44 Dose: 4 mg Ondansetron HCl (Zofran Inj) 4 mg IVP Q6 PRN PRN Reason: Nausea/Vomiting Last Admin: 07/18/17 20:38 Dose: 4 mg Pantoprazole Sodium (Protonix Inj) 40 mg IVP BID [facility] Last Admin: 07/20/17 16:10 Dose: 40 mg Pantoprazole Sodium (Protonix Ec Tab) 40 mg PO Q48H [facility] Last Admin: 07/19/17 18:38 Dose: Not Given Tamsulosin HCl (Flomax) 0.4 mg PO DAILY [facility] Last Admin: 07/20/17 08:25 Dose: 0.4 mg - Labs Labs: 07/21/17 05:30 07/21/17 05:30 PT 13.3 Seconds (9.8-13.1) H 07/18/17 09:51 INR 1.2 (0.9-1.2) 07/18/17 09:51 APTT 37.8 Seconds (25.6-37.1) H 07/18/17 09:51 - Constitutional Appears: Non-toxic, No Acute Distress - Head Exam Head Exam: ATRAUMATIC - Eye Exam Eye Exam: EOMI Pupil Exam: PERRL - ENT Exam ENT Exam: Mucous Membranes Moist - Respiratory Exam Respiratory Exam: Clear to Ausculation Bilateral, NORMAL BREATHING PATTERN. absent: Rales, Rhonchi, Wheezes, Respiratory Distress - Cardiovascular Exam Cardiovascular Exam: REGULAR RHYTHM, RRR, +S1, +S2, Murmur. absent: JVD, Rubs - GI/Abdominal Exam GI & Abdominal Exam: Soft, Normal Bowel Sounds. absent: Distended, Firm, Guarding, Rigid, Tenderness, Rebound - Extremities Exam Extremities Exam: Pedal Edema. absent: Calf Tenderness - Neurological Exam Neurological Exam: Alert, Awake, CN II-XII Intact, Normal Gait, Oriented x3 - Psychiatric Exam Psychiatric exam: Normal Affect, Normal Mood - Skin Skin Exam: Dry, Intact, Normal Color, Warm Assessment and Plan (1) Acute cholecystitis Assessment & Plan: Afebrile, WBC trending downwards (8.9 today 07/21) -T.Bili trending downwards, 3.9 today, 4.6 on 07/20 -Advanced to CLD -pain controlled -IV Zosyn 3.375 -IV Fluid therapy -MRCP: dilated CBD 9mm, no evidence of CBD stone on report. Gallbladder w/ evidence of cholecystitis -Gastroenterology consult appreciated, awaiting recommendations -incentive spirometry -held Eliquis, on Lovenox for now, will hold prior to surgery -seen by Hematology, cleared for surgery -seen by Cardiology, cleared for surgery -OR Sunday Status: Acute (2) HTN (hypertension) Assessment & Plan: controlled Losartan 100mg QD Cordarone 100mg QD c/w with management as ordered Status: Chronic (3) Prophylactic measure Assessment & Plan: Lovenox 100mg SC BID as per cardiology OOB/ambulation Protonix IV 40mg QD Status: Acute
--- NOTE | 2017-07-21 10:38 | CP.PCM.PN ---
Subjective - Date & Time of Evaluation Date of Evaluation: 07/21/17 Time of Evaluation: 06:50 - Subjective Subjective: Patient seen and examined this AM. ALLANO. Patient states his pain is improved, denies nausea and vomiting, tolerating CLD Objective - Vital Signs/Intake and Output Vital Signs (last 24 hours): Temp Pulse Resp BP Pulse Ox 97.4 F L 78 20 126/71 95 07/21/17 07:35 07/21/17 07:35 07/21/17 07:35 07/21/17 07:35 07/21/17 07:35 - Medications Medications: Current Medications Amiodarone HCl (Cordarone) 100 mg PO DAILY [facility] Last Admin: 07/20/17 08:24 Dose: 100 mg Enoxaparin Sodium (Lovenox) 100 mg SC Q12@0400,1600 [facility] PRN Reason: Protocol Last Admin: 07/21/17 03:13 Dose: 100 mg Hydromorphone HCl (Dilaudid) 1 mg IVP Q6 PRN PRN Reason: Pain, severe (8-10) Last Admin: 07/18/17 16:49 Dose: 1 mg Lactated Ringer's (Lactated Ringer's) 1,000 mls @ 150 mls/hr IV .Q6H40M [facility] Stop: 07/21/17 14:46 Last Admin: 07/21/17 03:00 Dose: Not Given Piperacillin Sod/Tazobactam (Sod 3.375 gm/ Sodium Chloride) 100 mls @ 100 mls/ hr IVPB 0300,0900,1500,2100 [facility] PRN Reason: Protocol Last Admin: 07/21/17 03:10 Dose: 100 mls/hr Losartan Potassium (Cozaar) 100 mg PO DAILY [facility] Last Admin: 07/20/17 08:24 Dose: 100 mg Metoclopramide HCl (Reglan) 10 mg IVP Q6 PRN PRN Reason: Nausea/Vomiting Morphine Sulfate (Morphine) 4 mg IVP Q4 PRN PRN Reason: Pain, moderate (4-7) Last Admin: 07/19/17 05:44 Dose: 4 mg Ondansetron HCl (Zofran Inj) 4 mg IVP Q6 PRN PRN Reason: Nausea/Vomiting Last Admin: 07/18/17 20:38 Dose: 4 mg Pantoprazole Sodium (Protonix Inj) 40 mg IVP BID [facility] Last Admin: 07/20/17 16:10 Dose: 40 mg Pantoprazole Sodium (Protonix Ec Tab) 40 mg PO Q48H [facility] Last Admin: 07/19/17 18:38 Dose: Not Given Tamsulosin HCl (Flomax) 0.4 mg PO DAILY [facility] Last Admin: 07/20/17 08:25 Dose: 0.4 mg - Labs Labs: 07/21/17 05:30 07/21/17 05:30 PT 13.3 Seconds (9.8-13.1) H 07/18/17 09:51 INR 1.2 (0.9-1.2) 07/18/17 09:51 APTT 37.8 Seconds (25.6-37.1) H 07/18/17 09:51 - Constitutional Appears: Non-toxic, Younger Than Stated Age - Head Exam Head Exam: ATRAUMATIC, NORMOCEPHALIC - Eye Exam Eye Exam: Normal appearance. absent: Conjunctival injection - ENT Exam ENT Exam: Mucous Membranes Moist, Normal Oropharynx - Respiratory Exam Respiratory Exam: NORMAL BREATHING PATTERN. absent: Accessory Muscle Use, Respiratory Distress - Cardiovascular Exam Cardiovascular Exam: RRR - GI/Abdominal Exam GI & Abdominal Exam: Soft. absent: Distended, Tenderness - Extremities Exam Extremities Exam: absent: Calf Tenderness, Pedal Edema, Tenderness - Neurological Exam Neurological Exam: Alert, Awake, Oriented x3 - Psychiatric Exam Psychiatric exam: Normal Affect, Normal Mood - Skin Skin Exam: Dry, Normal Color, Warm Assessment and Plan - Assessment and Plan (Free Text) Assessment: 71 y/o male w/ RUQ abdominal pain and Hyperbilirubenemia Plan: -Plan for OR on Sunday for laparoscopic cholecystectomy pending GI recs -T bili trending down, f/u GI recs -cont CLD as tolerated -Cont to trend CBC/CMP -IVFs -IV abx -OOB -IS use -hold anticoagulation, ok w/ cardio, for possible OR d/w Dr. Horne, further recs per him Sherice Cornelius, PGY2
--- NOTE | 2017-07-21 10:56 | CP.PCM.PN ---
Subjective - Date & Time of Evaluation Date of Evaluation: 07/21/17 Time of Evaluation: 10:53 - Subjective Subjective: Pt has been off eliquis for 3 days now and should be ready for surgery without any excessive bleeding. He is on lovenax and will have his surgery on sunday. Lovenox should be discontinued the night before surgery. His pain is level 4 and controlled with analgesics. Objective - Vital Signs/Intake and Output Vital Signs (last 24 hours): Temp Pulse Resp BP Pulse Ox 97.4 F L 78 20 126/71 95 07/21/17 07:35 07/21/17 07:35 07/21/17 07:35 07/21/17 10:50 07/21/17 07:35 - Medications Medications: Current Medications Amiodarone HCl (Cordarone) 100 mg PO DAILY [facility] Last Admin: 07/21/17 10:50 Dose: 100 mg Enoxaparin Sodium (Lovenox) 100 mg SC Q12@0400,1600 [facility] PRN Reason: Protocol Last Admin: 07/21/17 03:13 Dose: 100 mg Hydromorphone HCl (Dilaudid) 1 mg IVP Q6 PRN PRN Reason: Pain, severe (8-10) Last Admin: 07/18/17 16:49 Dose: 1 mg Lactated Ringer's (Lactated Ringer's) 1,000 mls @ 150 mls/hr IV .Q6H40M [facility] Stop: 07/21/17 14:46 Last Admin: 07/21/17 09:00 Dose: 150 mls/hr Piperacillin Sod/Tazobactam (Sod 3.375 gm/ Sodium Chloride) 100 mls @ 100 mls/ hr IVPB 0300,0900,1500,2100 [facility] PRN Reason: Protocol Last Admin: 07/21/17 10:52 Dose: 100 mls/hr Losartan Potassium (Cozaar) 100 mg PO DAILY [facility] Last Admin: 07/21/17 10:52 Dose: 100 mg Metoclopramide HCl (Reglan) 10 mg IVP Q6 PRN PRN Reason: Nausea/Vomiting Morphine Sulfate (Morphine) 4 mg IVP Q4 PRN PRN Reason: Pain, moderate (4-7) Last Admin: 07/19/17 05:44 Dose: 4 mg Ondansetron HCl (Zofran Inj) 4 mg IVP Q6 PRN PRN Reason: Nausea/Vomiting Last Admin: 07/18/17 20:38 Dose: 4 mg Pantoprazole Sodium (Protonix Inj) 40 mg IVP BID [facility] Last Admin: 07/21/17 10:52 Dose: 40 mg Pantoprazole Sodium (Protonix Ec Tab) 40 mg PO Q48H [facility] Last Admin: 07/19/17 18:38 Dose: Not Given Tamsulosin HCl (Flomax) 0.4 mg PO DAILY [facility] Last Admin: 07/21/17 10:50 Dose: 0.4 mg - Labs Labs: 07/21/17 05:30 07/21/17 05:30 PT 13.3 Seconds (9.8-13.1) H 07/18/17 09:51 INR 1.2 (0.9-1.2) 07/18/17 09:51 APTT 37.8 Seconds (25.6-37.1) H 07/18/17 09:51
--- NOTE | 2017-07-21 14:25 | CP.PCM.PN ---
Objective - Vital Signs/Intake and Output Vital Signs (last 24 hours): Temp Pulse Resp BP Pulse Ox 97.4 F L 78 20 126/71 95 07/21/17 07:35 07/21/17 07:35 07/21/17 07:35 07/21/17 10:50 07/21/17 07:35 - Medications Medications: Current Medications Amiodarone HCl (Cordarone) 100 mg PO DAILY [facility] Last Admin: 07/21/17 10:50 Dose: 100 mg Enoxaparin Sodium (Lovenox) 100 mg SC Q12@0400,1600 [facility] PRN Reason: Protocol Last Admin: 07/21/17 03:13 Dose: 100 mg Hydromorphone HCl (Dilaudid) 1 mg IVP Q6 PRN PRN Reason: Pain, severe (8-10) Last Admin: 07/18/17 16:49 Dose: 1 mg Lactated Ringer's (Lactated Ringer's) 1,000 mls @ 150 mls/hr IV .Q6H40M [facility] Stop: 07/21/17 14:46 Last Admin: 07/21/17 09:00 Dose: 150 mls/hr Piperacillin Sod/Tazobactam (Sod 3.375 gm/ Sodium Chloride) 100 mls @ 100 mls/ hr IVPB 0300,0900,1500,2100 [facility] PRN Reason: Protocol Last Admin: 07/21/17 10:52 Dose: 100 mls/hr Metoclopramide HCl (Reglan) 10 mg IVP Q6 PRN PRN Reason: Nausea/Vomiting Morphine Sulfate (Morphine) 4 mg IVP Q4 PRN PRN Reason: Pain, moderate (4-7) Last Admin: 07/19/17 05:44 Dose: 4 mg Ondansetron HCl (Zofran Inj) 4 mg IVP Q6 PRN PRN Reason: Nausea/Vomiting Last Admin: 07/18/17 20:38 Dose: 4 mg Pantoprazole Sodium (Protonix Inj) 40 mg IVP BID [facility] Last Admin: 07/21/17 10:52 Dose: 40 mg Tamsulosin HCl (Flomax) 0.4 mg PO DAILY [facility] Last Admin: 07/21/17 10:50 Dose: 0.4 mg - Labs Labs: 07/21/17 05:30 07/21/17 05:30 PT 13.3 Seconds (9.8-13.1) H 07/18/17 09:51 INR 1.2 (0.9-1.2) 07/18/17 09:51 APTT 37.8 Seconds (25.6-37.1) H 07/18/17 09:51
[2017-07-22] MEDS: Piperacillin/Tazobact 3.375 GM in Sodium Chloride 0.9% 100 ML IVPB SCH ×4 (03:43→21:32)
[2017-07-22] MEDS: Enoxaparin 100 mg Syringe SC SCH (04:45)
[2017-07-22 06:52] LABS: ALB/GLOB RATIO 1.1 (1.0-2.1); ALKALINE PHOSPHATASE 72 U/L (38-126); ALT/SGPT 38 U/L (21-72); AST/SGOT 24 U/L (17-59); BILIRUBIN,TOTAL 3.3 mg/dl (0.2-1.3); BLOOD UREA NITROGEN 15 mg/dl (9-20); CALCIUM 8.5 mg/dL (8.4-10.2); CARBON DIOXIDE 26 mmol/L (22-30); CHLORIDE 103 mmol/L (98-107); GFR AFRICAN-AMERICAN > 60; GLUCOSE,RANDOM 93 mg/dL (75-110); POTASSIUM 3.5 MMOL/L (3.6-5.0); SODIUM 139 mmol/l (132-148); TOTAL PROTEIN 6.9 G/DL (6.3-8.2)
[2017-07-22 08:03] LABS: BASO % 0.2 % (0.0-2.0); EOS % 0.3 % (0.0-4.0); HEMATOCRIT 40.1 % (35.0-51.0); LYMPH % 10.3 % (20.0-40.0); MEAN CELL VOLUME 87.6 fl (80.0-94.0); MEAN CORPUSCULAR HEMOGLOBIN 29.3 pg (27.0-31.0); MEAN CORPUSCULAR HGB CONC 33.4 g/dL (33.0-37.0); MEAN PLATELET VOLUME 9.4 fl (7.2-11.7); MONO # 1.1 K/uL (0.0-0.8); MONO % 12.1 % (0.0-10.0); NEUT # 7.2 K/uL (1.8-7.0); NEUT % 77.1 % (50.0-75.0); NRBC % 0.1 % (0.0-0.0); RED CELL DISTRIBUTION WIDTH 14.7 % (11.5-14.5); WHITE BLOOD COUNT 9.4 K/uL (4.8-10.8)
--- NOTE | 2017-07-22 08:30 | CP.PCM.PN ---
Subjective - Date & Time of Evaluation Date of Evaluation: 07/22/17 Time of Evaluation: 07:30 - Subjective Subjective: Patient seen and examined this AM. NAEO. Patient reports mild epigastric pain worse since yesterday. Denies nausea, vomiting, tolerating CLD and had a bowel movement yesterday. Objective - Vital Signs/Intake and Output Vital Signs (last 24 hours): Temp Pulse Resp BP Pulse Ox 98.8 F 84 20 134/81 96 07/22/17 07:28 07/22/17 07:28 07/22/17 07:28 07/22/17 07:28 07/22/17 07:28 - Medications Medications: Current Medications Amiodarone HCl (Cordarone) 100 mg PO DAILY [facility] Last Admin: 07/21/17 10:50 Dose: 100 mg Enoxaparin Sodium (Lovenox) 100 mg SC Q12@0400,1600 [facility] PRN Reason: Protocol Stop: 07/22/17 17:00 Last Admin: 07/22/17 04:45 Dose: 100 mg Hydromorphone HCl (Dilaudid) 1 mg IVP Q6 PRN PRN Reason: Pain, severe (8-10) Last Admin: 07/18/17 16:49 Dose: 1 mg Piperacillin Sod/Tazobactam (Sod 3.375 gm/ Sodium Chloride) 100 mls @ 100 mls/ hr IVPB 0300,0900,1500,2100 [facility] PRN Reason: Protocol Last Admin: 07/22/17 03:43 Dose: 100 mls/hr Lactated Ringer's (Lactated Ringer's) 1,000 mls @ 125 mls/hr IV .Q8H [facility] Metoclopramide HCl (Reglan) 10 mg IVP Q6 PRN PRN Reason: Nausea/Vomiting Ondansetron HCl (Zofran Inj) 4 mg IVP Q6 PRN PRN Reason: Nausea/Vomiting Last Admin: 07/18/17 20:38 Dose: 4 mg Pantoprazole Sodium (Protonix Inj) 40 mg IVP BID [facility] Last Admin: 07/21/17 16:09 Dose: 40 mg Potassium Chloride (K-Dur 20 Meq Er Tab) 20 meq PO BID [facility] Tamsulosin HCl (Flomax) 0.4 mg PO DAILY [facility] Last Admin: 07/21/17 10:50 Dose: 0.4 mg - Labs Labs: 07/22/17 05:30 07/22/17 05:30 PT 13.3 Seconds (9.8-13.1) H 07/18/17 09:51 INR 1.2 (0.9-1.2) 07/18/17 09:51 APTT 37.8 Seconds (25.6-37.1) H 07/18/17 09:51 - Constitutional Appears: Non-toxic, No Acute Distress - Head Exam Head Exam: ATRAUMATIC, NORMOCEPHALIC - Eye Exam Eye Exam: Conjunctival injection, Normal appearance. absent: Scleral icterus - ENT Exam ENT Exam: Mucous Membranes Moist, Normal Oropharynx - Respiratory Exam Respiratory Exam: NORMAL BREATHING PATTERN. absent: Accessory Muscle Use, Respiratory Distress - Cardiovascular Exam Cardiovascular Exam: RRR - GI/Abdominal Exam GI & Abdominal Exam: Distended (mild), Soft, Tenderness (epigastric mid tenderness) - Extremities Exam Extremities Exam: absent: Calf Tenderness, Pedal Edema, Tenderness - Neurological Exam Neurological Exam: Alert, Awake, Oriented x3 - Psychiatric Exam Psychiatric exam: Normal Affect, Normal Mood - Skin Skin Exam: Dry, Warm Additional comments: mild jaundice Assessment and Plan - Assessment and Plan (Free Text) Assessment: 71 y/o male w/ RUQ abdominal pain and Hyperbilirubenemia Plan: -Plan for OR on Sunday for laparoscopic cholecystectomy -T bili trending down, f/u GI recs -cont CLD as tolerated, NPO after midnight -Cont to trend CBC/CMP -IV abx -OOB -IS use -hold Lovenox this evening d/w Dr. Horne, further recs per him Sherice Cornelius, PGY2
[2017-07-22] MEDS: Potassium Chloride 20 mEq ER Tab PO SCH ×2 (09:36→16:46)
--- NOTE | 2017-07-22 13:13 | CP.PCM.PN ---
Subjective - Date & Time of Evaluation Date of Evaluation: 07/22/17 Time of Evaluation: 08:40 - Subjective Subjective: CC: acute cholecystitis Pt. seen and examined by bedside. Mild epigastric pain. tolerating clears this AM, denies n/v/d. No fevers, chills overnight. OR tomorrow for lap. conner. Objective - Vital Signs/Intake and Output Vital Signs (last 24 hours): Temp Pulse Resp BP Pulse Ox 98.8 F 85 20 134/81 96 07/22/17 07:28 07/22/17 09:32 07/22/17 07:28 07/22/17 09:32 07/22/17 07:28 - Medications Medications: Current Medications Amiodarone HCl (Cordarone) 100 mg PO DAILY [facility] Last Admin: 07/22/17 09:32 Dose: 100 mg Enoxaparin Sodium (Lovenox) 100 mg SC Q12@0400,1600 [facility] PRN Reason: Protocol Stop: 07/22/17 17:00 Last Admin: 07/22/17 04:45 Dose: 100 mg Hydromorphone HCl (Dilaudid) 1 mg IVP Q6 PRN PRN Reason: Pain, severe (8-10) Last Admin: 07/22/17 09:29 Dose: 1 mg Piperacillin Sod/Tazobactam (Sod 3.375 gm/ Sodium Chloride) 100 mls @ 100 mls/ hr IVPB 0300,0900,1500,2100 [facility] PRN Reason: Protocol Last Admin: 07/22/17 09:33 Dose: 100 mls/hr Lactated Ringer's (Lactated Ringer's) 1,000 mls @ 125 mls/hr IV .Q8H [facility] Metoclopramide HCl (Reglan) 10 mg IVP Q6 PRN PRN Reason: Nausea/Vomiting Ondansetron HCl (Zofran Inj) 4 mg IVP Q6 PRN PRN Reason: Nausea/Vomiting Last Admin: 07/18/17 20:38 Dose: 4 mg Pantoprazole Sodium (Protonix Inj) 40 mg IVP BID [facility] Last Admin: 07/22/17 09:33 Dose: 40 mg Potassium Chloride (K-Dur 20 Meq Er Tab) 20 meq PO BID [facility] Last Admin: 07/22/17 09:36 Dose: 20 meq Tamsulosin HCl (Flomax) 0.4 mg PO DAILY [facility] Last Admin: 07/22/17 09:32 Dose: 0.4 mg - Labs Labs: 07/22/17 05:30 07/22/17 05:30 PT 13.3 Seconds (9.8-13.1) H 07/18/17 09:51 INR 1.2 (0.9-1.2) 07/18/17 09:51 APTT 37.8 Seconds (25.6-37.1) H 07/18/17 09:51 - Constitutional Appears: No Acute Distress - Eye Exam Eye Exam: EOMI Pupil Exam: PERRL - ENT Exam ENT Exam: Mucous Membranes Moist - Neck Exam Neck Exam: Full ROM - Cardiovascular Exam Cardiovascular Exam: +S1, +S2 - GI/Abdominal Exam GI & Abdominal Exam: Soft, Normal Bowel Sounds. absent: Distended, Guarding - Extremities Exam Extremities Exam: Normal Inspection. absent: Pedal Edema - Neurological Exam Neurological Exam: Alert, Awake, Oriented x3 - Psychiatric Exam Psychiatric exam: Normal Affect, Normal Mood - Skin Skin Exam: Normal Color, Warm Assessment and Plan - Assessment and Plan (Free Text) Plan: Acute cholecystitis Afebrile, no leukocytosis -T.Bili trending downwards -Advanced to CLD -pain controlled -IV Zosyn 3.375 -IV Fluid therapy -MRCP: dilated CBD 9mm, no evidence of CBD stone on report. Gallbladder w/ evidence of cholecystitis -Gastroenterology consult appreciated, awaiting recommendations -incentive spirometry -held Eliquis, on Lovenox for now, hold prior to surgery -seen by Hematology, cleared for surgery -seen by Cardiology, cleared for surgery -OR Sunday -NPO after midnight HTN (hypertension) controlled Losartan 100mg QD Cordarone 100mg QD c/w with management as ordered Prophylactic measure Lovenox 100mg SC BID as per cardiology ( HELD for procedure in AM) OOB/ambulation Protonix IV 40mg QD
[2017-07-22] MEDS: Lactated Ringer's 1,000 ML IV SCH (23:58)
[2017-07-23] MEDS: Piperacillin/Tazobact 3.375 GM in Sodium Chloride 0.9% 100 ML IVPB SCH ×4 (03:38→22:13)
[2017-07-23 06:50] LABS: ALB/GLOB RATIO 1.1 (1.0-2.1); ALKALINE PHOSPHATASE 65 U/L (38-126); ALT/SGPT 36 U/L (21-72); AST/SGOT 21 U/L (17-59); BILIRUBIN,TOTAL 2.6 mg/dl (0.2-1.3); BLOOD UREA NITROGEN 13 mg/dl (9-20); CALCIUM 8.3 mg/dL (8.4-10.2); CARBON DIOXIDE 27 mmol/L (22-30); CHLORIDE 104 mmol/L (98-107); GFR AFRICAN-AMERICAN > 60; GLUCOSE,RANDOM 96 mg/dL (75-110); POTASSIUM 3.2 MMOL/L (3.6-5.0); SODIUM 140 mmol/l (132-148); TOTAL PROTEIN 6.3 G/DL (6.3-8.2)
[2017-07-23 06:59] LABS: BASO % 0.2 % (0.0-2.0); EOS # 0.1 K/uL (0.0-0.7); EOS % 0.6 % (0.0-4.0); LYMPH # 0.7 K/uL (1.0-4.3); LYMPH % 7.4 % (20.0-40.0); MEAN CELL VOLUME 86.6 fl (80.0-94.0); MEAN CORPUSCULAR HEMOGLOBIN 28.6 pg (27.0-31.0); MEAN CORPUSCULAR HGB CONC 33.1 g/dL (33.0-37.0); MEAN PLATELET VOLUME 9.2 fl (7.2-11.7); MONO # 1.2 K/uL (0.0-0.8); NEUT % 78.8 % (50.0-75.0); NRBC % 0.1 % (0.0-0.0); PLATELET COUNT 146 K/uL (130-400); RED CELL DISTRIBUTION WIDTH 14.3 % (11.5-14.5); WHITE BLOOD COUNT 8.9 K/uL (4.8-10.8)
[2017-07-23] MEDS: Lactated Ringer's 1,000 ML IV SCH ×2 (08:15→21:30)
[2017-07-23] MEDS: Potassium Chloride 20 mEq ER Tab PO SCH (08:18)
[2017-07-23 09:13] LABS: NEUTROPHIL 75 % (42-75); TOTAL CELLS COUNTED 100
[2017-07-23 09:14] LABS: LARGE PLATELETS PRESENT
[2017-07-23] MEDS: Potassium CL 10 MEQ/50 ML 50 ML IVPB SCH ×3 (11:24→12:33)
--- NOTE | 2017-07-23 11:49 | CP.PCM.PN ---
<Nestor Mueller - Last Filed: 07/23/17 12:38> Subjective - Date & Time of Evaluation Date of Evaluation: 07/23/17 Time of Evaluation: 07:05 - Subjective Subjective: pt seen and examined at bedside this morning with attending. No acute events overnight. Afebrile, denies pain. Lying in bed comfortably, NAD. NPO after midnight. Hypokalemia today noted. WBC normal. Pt for OR today. Objective - Vital Signs/Intake and Output Vital Signs (last 24 hours): Temp Pulse Resp BP Pulse Ox 99.3 F 79 20 155/96 H 97 07/23/17 08:28 07/23/17 08:28 07/23/17 08:28 07/23/17 08:28 07/23/17 08:28 - Medications Medications: Current Medications Amiodarone HCl (Cordarone) 100 mg PO DAILY [facility] Last Admin: 07/23/17 08:18 Dose: Not Given Hydromorphone HCl (Dilaudid) 1 mg IVP Q6 PRN PRN Reason: Pain, severe (8-10) Last Admin: 07/22/17 09:29 Dose: 1 mg Piperacillin Sod/Tazobactam (Sod 3.375 gm/ Sodium Chloride) 100 mls @ 100 mls/ hr IVPB 0300,0900,1500,2100 [facility] PRN Reason: Protocol Last Admin: 07/23/17 08:21 Dose: 100 mls/hr Lactated Ringer's (Lactated Ringer's) 1,000 mls @ 125 mls/hr IV .Q8H [facility] Last Admin: 07/23/17 08:15 Dose: Not Given Potassium Chloride (Potassium Chloride 10 Meq/100 Ml) 100 mls @ 100 mls/hr IVPB Q1 [facility] Stop: 07/23/17 14:59 Metoclopramide HCl (Reglan) 10 mg IVP Q6 PRN PRN Reason: Nausea/Vomiting Ondansetron HCl (Zofran Inj) 4 mg IVP Q6 PRN PRN Reason: Nausea/Vomiting Last Admin: 07/18/17 20:38 Dose: 4 mg Pantoprazole Sodium (Protonix Inj) 40 mg IV BID [facility] Last Admin: 07/23/17 08:26 Dose: 40 mg Potassium Chloride (K-Dur 20 Meq Er Tab) 20 meq PO BID [facility] Last Admin: 07/23/17 08:18 Dose: Not Given Tamsulosin HCl (Flomax) 0.4 mg PO DAILY [facility] Last Admin: 07/23/17 08:18 Dose: Not Given - Labs Labs: 07/23/17 06:05 07/23/17 06:05 PT 15.0 Seconds (9.8-13.1) H 07/23/17 11:15 INR 1.3 (0.9-1.2) H 07/23/17 11:15 APTT 37.8 Seconds (25.6-37.1) H 07/18/17 09:51 - Constitutional Appears: Non-toxic, No Acute Distress - Respiratory Exam Respiratory Exam: Clear to Ausculation Bilateral, NORMAL BREATHING PATTERN. absent: Rales, Rhonchi, Wheezes - Cardiovascular Exam Cardiovascular Exam: REGULAR RHYTHM, RRR, +S1, +S2, Murmur. absent: JVD, Rubs - GI/Abdominal Exam GI & Abdominal Exam: Soft, Normal Bowel Sounds. absent: Tenderness - Extremities Exam Extremities Exam: Normal Inspection, Pedal Edema. absent: Calf Tenderness - Back Exam Back Exam: NORMAL INSPECTION - Neurological Exam Neurological Exam: Alert, Awake, CN II-XII Intact, Oriented x3 - Skin Skin Exam: Dry, Intact, Normal Color, Warm Assessment and Plan (1) Acute cholecystitis Assessment & Plan: NPO since midnight anticoagulation held pt for OR today for Lap Violeta Status: Acute (2) HTN (hypertension) Assessment & Plan: as ordered Status: Chronic (3) Hypokalemia Assessment & Plan: 3.2 on 07/23 K runs x3 ordered f/u BMP post op Status: Acute (4) Prophylactic measure Assessment & Plan: anticoagulation held SCDs Protonix Status: Acute <Hector Hernandez - Last Filed: 07/24/17 06:40> Objective - Vital Signs/Intake and Output Vital Signs (last 24 hours): Temp Pulse Resp BP Pulse Ox 97.6 F 88 14 150/88 98 07/24/17 04:00 07/24/17 04:00 07/24/17 04:00 07/24/17 04:00 07/24/17 04:00 Intake and Output: 07/23/17 07/24/17 18:59 06:59 Intake Total 4650 950 Output Total 400 1040 Balance 4250 -90 - Medications Medications: Current Medications Amiodarone HCl (Cordarone) 100 mg PO DAILY [facility] Hydromorphone HCl (Dilaudid) 1 mg IVP Q4H PRN PRN Reason: Pain, moderate (4-7) Last Admin: 07/23/17 23:13 Dose: 1 mg Hydromorphone HCl (Dilaudid) 2 mg IVP Q3H PRN PRN Reason: Pain, severe (8-10) Last Admin: 07/24/17 06:03 Dose: 2 mg Piperacillin Sod/Tazobactam (Sod 3.375 gm/ Sodium Chloride) 100 mls @ 100 mls/ hr IVPB 0300,0900,1500,2100 [facility] PRN Reason: Protocol Last Admin: 07/24/17 02:58 Dose: 100 mls/hr Cefazolin Sodium 2 gm/ Sodium (Chloride) 100 mls @ 100 mls/hr IVPB Q8@0500,1300 ,2100 [facility] PRN Reason: Protocol Last Admin: 07/24/17 04:56 Dose: 100 mls/hr Lactated Ringer's (Lactated Ringer's) 1,000 mls @ 100 mls/hr IV .Q10H [facility] Last Admin: 07/23/17 21:30 Dose: 100 mls/hr Metoclopramide HCl (Reglan) 10 mg IVP Q6 PRN PRN Reason: Nausea/Vomiting Pantoprazole Sodium (Protonix Inj) 40 mg IV BID [facility] Potassium Chloride (K-Dur 20 Meq Er Tab) 20 meq PO BID [facility] Propofol (Diprivan) 1,000 mg IV .TITRATE [facility] Tamsulosin HCl (Flomax) 0.4 mg PO DAILY [facility] - Labs Labs: 07/24/17 04:20 07/24/17 04:20 PT 15.3 Seconds (9.8-13.1) H 07/24/17 04:20 INR 1.4 (0.9-1.2) H 07/24/17 04:20 APTT 28.8 Seconds (25.6-37.1) 07/24/17 04:20 Attending/Attestation - Attestation I have personally seen and examined this patient.: Yes I have fully participated in the care of the patient.: Yes I have reviewed all pertinent clinical information, including history, physical exam and plan: Yes
[2017-07-23] MEDS: Potassium CL 10mEq/100ml 100 ML IVPB SCH (13:10)
[2017-07-23] MEDS ORDERED: Propofol 10 mg/ml Inj (20 ML) ONE (13:10)
[2017-07-23] MEDS ORDERED: Etomidate 20 mg/10ml Inj IV ONE (13:13)
[2017-07-23] MEDS ORDERED: Lidocaine 1% Inj (20ml) ONE (13:13)
[2017-07-23] MEDS ORDERED: Iohexol 300 100 ML IJ ONE (13:13)
[2017-07-23] MEDS ORDERED: Bupivacaine 0.5% Inj(30mL) ONE (13:13)
[2017-07-23] MEDS ORDERED: ceFAZolin IV 1 gm in Dextrose 1 GM/50 ML BAG IVPB ONE (13:13)
[2017-07-23] MEDS ORDERED: Succinylcholine 200 mg/10 ml Inj IV ONE (13:13)
[2017-07-23] MEDS ORDERED: Iohexol 240 200 ML IJ ONE (13:14)
[2017-07-23] MEDS ORDERED: Lactated Ringer's 1,000 ML IV ONE ×4 (13:27→15:20)
[2017-07-23] MEDS ORDERED: Rocuronium 10 mg/ml (5 ml) ONE ×2 (13:38→14:14)
[2017-07-23] MEDS ORDERED: Phenylephrine 10 mg/ml Inj ONE (15:15)
--- NOTE | 2017-07-23 15:27 | PCM.SURG1 ---
Surgeon's Initial Post Op Note - Surgeon's Notes Surgeon: Dr. Nickerson Artist Model: Dr. Munoz; Gautam Chance, PGY4; Sherice Cornelius, PGY2 Type of Anesthesia: General Endo Pre-Operative Diagnosis: Acute cholecystitis Operative Findings: Necrotic gallbladder, see full operative report Post-Operative Diagnosis: same Operation Performed: Laparoscopic cholecystectomy Specimen/Specimens Removed: Gallbladder Estimated Blood Loss: EBL {In ML}: 1,400 Blood Products Given: PRBC (2 units) Drains Used: Avtar Post-Op Condition: Poor Date of Surgery/Procedure: 07/23/17 Time of Surgery/Procedure: 13:30
[2017-07-23] MEDS ORDERED: Lactated Ringer's 1,000 ML IV SCH ×2 (16:00→20:22)
[2017-07-23] MEDS ORDERED: Propofol 10 mg/ml Inj (100 ml) IV SCH ×2 (16:15→20:22)
[2017-07-23] MEDS ORDERED: Midazolam 2 MG/2 ML VIAL IV ONE (16:19)
--- NOTE | 2017-07-23 16:41 | RAD ---
HISTORY: post intubation COMPARISON: Chest radiographs 07/18/2017. FINDINGS: An endotracheal tube is now identified in position terminating in the plane of the trachea just below the level of clavicles. LUNGS: No prominent infiltrate is appreciate bilaterally. PLEURA: Trace bilateral pleural effusion are not completely excluded however this may be this appearance may be a function of inadequate penetration of the bases. Elevated left hemidiaphragm again evident CARDIOVASCULAR: Stable cardiomegaly with a prosthetic cardiac valve and sternotomy wires again seen. OSSEOUS STRUCTURES: No significant abnormalities. VISUALIZED UPPER ABDOMEN: Normal. OTHER FINDINGS: None. IMPRESSION: Potential trace bilateral pleural effusions with elevated left hemidiaphragm again evident. Endotracheal tube in adequate position.
[2017-07-23] MEDS ORDERED: ceFAZolin 2 GM in Sodium Chloride 0.9% 100 ML IVPB SCH (17:00)
[2017-07-23 18:01] LABS: HEMATOCRIT 39.4 % (35.0-51.0); MEAN CORPUSCULAR HEMOGLOBIN 29.2 pg (27.0-31.0); MEAN CORPUSCULAR HGB CONC 33.2 g/dL (33.0-37.0); RED CELL DISTRIBUTION WIDTH 14.5 % (11.5-14.5)
[2017-07-23] MEDS ORDERED: HYDROmorphone 1 mg/ml ISec IVP PRN ×2 (18:08→18:10)
[2017-07-23 18:13] LABS: ALB/GLOB RATIO 1.1 (1.0-2.1); ALKALINE PHOSPHATASE 65 U/L (38-126); ALT/SGPT 46 U/L (21-72); AST/SGOT 39 U/L (17-59); BILIRUBIN,TOTAL 3.6 mg/dl (0.2-1.3); BLOOD UREA NITROGEN 13 mg/dl (9-20); CALCIUM 8.3 mg/dL (8.4-10.2); CARBON DIOXIDE 23 mmol/L (22-30); CHLORIDE 106 mmol/L (98-107); GFR AFRICAN-AMERICAN > 60; GLUCOSE,RANDOM 138 mg/dL (75-110); POTASSIUM 3.6 MMOL/L (3.6-5.0); SODIUM 139 mmol/l (132-148); TOTAL PROTEIN 6.1 G/DL (6.3-8.2)
[2017-07-23 18:30] LABS: PARTIAL THROMBOPLASTIN TIME 28.5 Seconds (25.6-37.1)
[2017-07-23] MEDS ORDERED: HYDROmorphone 0.5 mg/0.5 ml ISec IVP PRN (19:00)
[2017-07-23] MEDS ORDERED: HYDROmorphone 0.5 mg/0.5 ml ISec ONE (20:28)
[2017-07-23] MEDS ORDERED: HYDROmorphone 0.5 mg/0.5 ml ISec IVP STA ×2 (20:39→23:47)
--- NOTE | 2017-07-23 22:33 | PN ---
CRITICAL CARE PROGRESS NOTE DATE: 07/23/2017 LOCATION: Patient in ICU, bed 421. TIME SPENT: 45 minutes. SUBJECTIVE: Patient is seen and examined at the bedside. Case is discussed with surgeon, Dr. Navi Nickerson. Events since admission reviewed. Past medical, surgical, and social history noted. Mr. Will is a 71-year-old male, nonsmoker, social EtOH user, with a history significant for hypertension, paroxysmal atrial fibrillation, pulmonary embolism, mitral valve repair in 12/2016, and obstructive sleep apnea on CPAP at home. Patient's medications at home include Avapro 300 mg daily, Eliquis 5 mg b.i.d., vitamin D3 daily, Cordarone 200 mg twice daily, aspirin 81 mg daily, Colace, Lasix 40 mg daily, lactulose 20 g b.i.d., multivitamin tablet, Percocet and Flomax. Patient was admitted through emergency room on 07/18/2017 when he presented with an acute abdominal pain, more at the right upper quadrant/epigastric area. CT abdomen and pelvis ruled out dissecting aneurysm and pulmonary embolism, but noted to have distended common bile duct and distended gallbladder with stones, but no stone in the common bile duct. An MRCP done showed cholelithiasis, distended gallbladder with evidence of gallbladder wall thickening, pericholecystic edema. Common bile duct appears mildly dilated but without focal swelling. Patient was seen by Hematology. Hematology discontinued Eliquis, placed on Lovenox. Lovenox was discontinued night prior to surgery. Patient underwent laparoscopic cholecystectomy under general anesthesia through endotracheal tube. Patient's estimated blood loss was about 1400 mL. Operative course was otherwise uneventful. Patient received 2 units of packed red blood cells intraoperatively and another unit in the recovery room, admitted to ICU for further postop evaluation and stabilization. ALLERGIES: NONE DOCUMENTED. FAMILY HISTORY: Positive for two brothers of unknown etiology. PHYSICAL EXAMINATION: GENERAL: Elderly, morbidly obese male, orally intubated, sedated, under effect of general anesthesia, but recovering. VITAL SIGNS: Temperature 99.3, heart rate 84, blood pressure 126/79. HEAD, EYES, EARS, NOSE, AND THROAT: Pupils reactive. Conjunctivae pale. Sclerae white. NECK: Supple. Trachea central. CHEST: Bilateral breath sounds, clear to auscultation anteriorly and laterally. HEART: Rhythm regular. S1 and S2 normal in intensity. No audible murmur. ABDOMEN: Bowel sounds are present. Mildly distended. Dressing intact on the right upper quadrant. PRESTON drain in place, draining sanguineous fluid. EXTREMITIES: With Venodyne boots. Dorsalis pedis palpable, reduced in intensity. NEUROLOGIC: Still under the effect of anesthesia. LABORATORY DATA: WBC 8.9, hemoglobin 12.6, hematocrit 38, platelet count 146 prior to surgery this morning. PT 15, INR 1.3. SMA-7; sodium 140, potassium 3.2, chloride 104, CO2 of 27, blood urea nitrogen 13, creatinine 0.7 prior to surgery this morning. LFT; AST 21, ALT 36, alkaline phosphatase 65, total protein 6.3, albumin 3.3. IMPRESSION AND PLAN: 1. Admitted with right upper quadrant pain, noted acute cholecystitis with cholelithiasis, pericholecystic fluid, no stone in the common bile duct, underwent laparoscopic cholecystectomy, estimated blood loss 1400 mL, status post transfuse 3 units of packed red blood cells, also received 3.5 L Ringer's lactate. Continue with hydration at 125 mL/hour, follow urine output. 2. Cardiac: History of paroxysmal atrial fibrillation, status post mitral valve repair. Hold Eliquis until cleared by Surgery. We will continue with Venodyne boots to prevent deep venous thrombosis given the previous history of pulmonary embolism and high risk for the same. Once cleared by Surgery, initiate Lovenox or Eliquis. 3. Pulmonary: Nonsmoker, no history of chronic obstructive pulmonary disease, history of pulmonary embolism. We will closely monitor for further recurrence. Initiate anticoagulation as soon as cleared by Surgery. Continue incentive spirometry to prevent postoperative atelectasis. 4. Renal: Closely monitor electrolyte imbalance, noted to have hypokalemia prior to the surgery, has been supplemented. Maintain n.p.o.until cleared by Surgery. Keep head of bed 30 degree up. Continue preop antibiotics. Started on Zosyn 3.375 g intravenously q.6 hours, analgesics as needed for pain, cefazolin 2 g intravenously q.8 x3 doses. Monitor for recurrent atrialfibrillation and initiate amiodarone either p.o. and /or intravenously as needed. Lex Enriquez MD MTDD
[2017-07-24] MEDS ORDERED: ceFAZolin 2 GM in Sodium Chloride 0.9% 100 ML IVPB SCH (01:00)
[2017-07-24] MEDS ORDERED: HYDROmorphone 0.5 mg/0.5 ml ISec IVP ONE (02:28)
[2017-07-24] MEDS: Piperacillin/Tazobact 3.375 GM in Sodium Chloride 0.9% 100 ML IVPB SCH ×4 (02:58→20:12)
[2017-07-24] MEDS: ceFAZolin 2 GM in Sodium Chloride 0.9% 100 ML IVPB SCH ×3 (04:56→21:11)
[2017-07-24 05:19] LABS: BASO % 0.1 % (0.0-2.0); HEMATOCRIT 40.2 % (35.0-51.0); LYMPH # 0.6 K/uL (1.0-4.3); LYMPH % 4.8 % (20.0-40.0); MEAN CELL VOLUME 88.3 fl (80.0-94.0); MEAN CORPUSCULAR HEMOGLOBIN 29.5 pg (27.0-31.0); MEAN CORPUSCULAR HGB CONC 33.4 g/dL (33.0-37.0); MONO # 1.4 K/uL (0.0-0.8); MONO % 11.8 % (0.0-10.0); NEUT # 9.6 K/uL (1.8-7.0); NEUT % 83.3 % (50.0-75.0); RED CELL DISTRIBUTION WIDTH 14.8 % (11.5-14.5); WHITE BLOOD COUNT 11.6 K/uL (4.8-10.8)
[2017-07-24 06:00] LABS: BLOOD UREA NITROGEN 13 mg/dl (9-20); GFR AFRICAN-AMERICAN > 60; GLUCOSE,RANDOM 125 mg/dL (75-110); POTASSIUM 4.3 MMOL/L (3.6-5.0); SODIUM 144 mmol/l (132-148)
[2017-07-24 06:01] LABS: ALB/GLOB RATIO 1.1 (1.0-2.1); ALKALINE PHOSPHATASE 67 U/L (38-126); ALT/SGPT 49 U/L (21-72); AST/SGOT 37 U/L (17-59); BILIRUBIN,TOTAL 2.5 mg/dl (0.2-1.3); CALCIUM 8.9 mg/dL (8.4-10.2); CARBON DIOXIDE 30 mmol/L (22-30); CHLORIDE 106 mmol/L (98-107); TOTAL PROTEIN 6.5 G/DL (6.3-8.2)
[2017-07-24 06:05] LABS: PARTIAL THROMBOPLASTIN TIME 28.8 Seconds (25.6-37.1)
[2017-07-24] MEDS: Lactated Ringer's 1,000 ML IV SCH ×2 (06:30→16:36)
--- NOTE | 2017-07-24 07:34 | CP.PCM.PN ---
<Sherice Cornelius - Last Filed: 07/24/17 07:31> Subjective - Date & Time of Evaluation Date of Evaluation: 07/24/17 Time of Evaluation: 07:00 - Subjective Subjective: Patient see and examined in the ICU. ZAIN. Patient states he had significant pain only partially controlled by IV pain medication. Denies nausea, vomiting, chest pain, fevers, or any other symptoms. Objective - Vital Signs/Intake and Output Vital Signs (last 24 hours): Temp Pulse Resp BP Pulse Ox 97.6 F 87 13 160/95 H 98 07/24/17 04:00 07/24/17 07:00 07/24/17 07:00 07/24/17 07:00 07/24/17 07:00 Intake and Output: 07/24/17 07/24/17 06:59 18:59 Intake Total 950 Output Total 1070 Balance -120 - Medications Medications: Current Medications Acetaminophen (Tylenol 325mg Tab) 975 mg PO Q8 [facility] Amiodarone HCl (Cordarone) 100 mg PO DAILY [facility] Hydromorphone HCl (Dilaudid) 1 mg IVP Q4H PRN PRN Reason: Pain, moderate (4-7) Last Admin: 07/23/17 23:13 Dose: 1 mg Hydromorphone HCl (Dilaudid) 2 mg IVP Q3H PRN PRN Reason: Pain, severe (8-10) Last Admin: 07/24/17 06:03 Dose: 2 mg Piperacillin Sod/Tazobactam (Sod 3.375 gm/ Sodium Chloride) 100 mls @ 100 mls/ hr IVPB 0300,0900,1500,2100 [facility] PRN Reason: Protocol Last Admin: 07/24/17 02:58 Dose: 100 mls/hr Cefazolin Sodium 2 gm/ Sodium (Chloride) 100 mls @ 100 mls/hr IVPB Q8@0500,1300 ,2100 [facility] PRN Reason: Protocol Last Admin: 07/24/17 04:56 Dose: 100 mls/hr Lactated Ringer's (Lactated Ringer's) 1,000 mls @ 100 mls/hr IV .Q10H [facility] Last Admin: 07/24/17 06:30 Dose: 100 mls/hr Metoclopramide HCl (Reglan) 10 mg IVP Q6 PRN PRN Reason: Nausea/Vomiting Pantoprazole Sodium (Protonix Inj) 40 mg IV BID [facility] Potassium Chloride (K-Dur 20 Meq Er Tab) 20 meq PO BID [facility] Propofol (Diprivan) 1,000 mg IV .TITRATE [facility] Tamsulosin HCl (Flomax) 0.4 mg PO DAILY [facility] - Labs Labs: 07/24/17 04:20 07/24/17 04:20 PT 15.3 Seconds (9.8-13.1) H 07/24/17 04:20 INR 1.4 (0.9-1.2) H 07/24/17 04:20 APTT 28.8 Seconds (25.6-37.1) 07/24/17 04:20 - Constitutional Appears: Non-toxic, No Acute Distress - Head Exam Head Exam: ATRAUMATIC, NORMOCEPHALIC - Eye Exam Eye Exam: Normal appearance. absent: Conjunctival injection, Scleral icterus - ENT Exam ENT Exam: Mucous Membranes Moist, Normal Oropharynx - Respiratory Exam Respiratory Exam: NORMAL BREATHING PATTERN. absent: Accessory Muscle Use, Respiratory Distress - Cardiovascular Exam Cardiovascular Exam: RRR - GI/Abdominal Exam GI & Abdominal Exam: Distended (mild), Soft, Tenderness (RUQ) Additional comments: Surgical incisions covered in dressings c/d/i. Drain with 5cc's of sero- sanguinous output - Extremities Exam Extremities Exam: Pedal Edema. absent: Calf Tenderness, Tenderness - Neurological Exam Neurological Exam: Alert, Awake, Oriented x3 - Psychiatric Exam Psychiatric exam: Normal Affect, Normal Mood - Skin Skin Exam: Dry, Normal Color, Warm Assessment and Plan - Assessment and Plan (Free Text) Assessment: 71M with Acute cholecystitis POD#1 s/p laparoscopic cholecystectomy Plan: -Start CLD -D/C [place] -Continue to monitor labs and Intake and output -Adjust pain regimen -Serial exams -Will continue to follow -Incentive spirometer -PT Discussed with Dr. Krishan Cornelius, PGY2 <Hemanth Munoz - Last Filed: 07/24/17 11:58> Subjective - Date & Time of Evaluation Time of Evaluation: 11:45 - Subjective Subjective: Patient was seen and examined at the bedside. Agree with resident's note above. Objective - Vital Signs/Intake and Output Vital Signs (last 24 hours): Temp Pulse Resp BP Pulse Ox 97.9 F 87 12 184/90 H 92 L 07/24/17 08:58 07/24/17 08:52 07/24/17 08:00 07/24/17 08:52 07/24/17 08:00 Intake and Output: 07/24/17 07/24/17 06:59 18:59 Intake Total 950 340 Output Total 1070 300 Balance -120 40 - Medications Medications: Current Medications Acetaminophen (Tylenol 325mg Tab) 975 mg PO Q8 [facility] Last Admin: 07/24/17 08:58 Dose: 975 mg Amiodarone HCl (Cordarone) 100 mg PO DAILY [facility] Last Admin: 07/24/17 08:52 Dose: 100 mg Hydromorphone HCl (Dilaudid) 1 mg IVP Q4H PRN PRN Reason: Pain, moderate (4-7) Last Admin: 07/23/17 23:13 Dose: 1 mg Hydromorphone HCl (Dilaudid) 2 mg IVP Q3H PRN PRN Reason: Pain, severe (8-10) Last Admin: 07/24/17 09:00 Dose: 2 mg Piperacillin Sod/Tazobactam (Sod 3.375 gm/ Sodium Chloride) 100 mls @ 100 mls/ hr IVPB 0300,0900,1500,2100 [facility] PRN Reason: Protocol Last Admin: 07/24/17 08:56 Dose: 100 mls/hr Cefazolin Sodium 2 gm/ Sodium (Chloride) 100 mls @ 100 mls/hr IVPB Q8@0500,1300 ,2100 [facility] PRN Reason: Protocol Last Admin: 07/24/17 04:56 Dose: 100 mls/hr Lactated Ringer's (Lactated Ringer's) 1,000 mls @ 100 mls/hr IV .Q10H [facility] Last Admin: 07/24/17 06:30 Dose: 100 mls/hr Metoclopramide HCl (Reglan) 10 mg IVP Q6 PRN PRN Reason: Nausea/Vomiting Pantoprazole Sodium (Protonix Inj) 40 mg IV BID [facility] Last Admin: 07/24/17 08:55 Dose: 40 mg Potassium Chloride (K-Dur 20 Meq Er Tab) 20 meq PO BID [facility] Last Admin: 07/24/17 08:54 Dose: 20 meq Propofol (Diprivan) 1,000 mg IV .TITRATE [facility] Tamsulosin HCl (Flomax) 0.4 mg PO DAILY [facility] Last Admin: 07/24/17 08:53 Dose: 0.4 mg - Labs Labs: 07/24/17 04:20 07/24/17 04:20 PT 15.3 Seconds (9.8-13.1) H 07/24/17 04:20 INR 1.4 (0.9-1.2) H 07/24/17 04:20 APTT 28.8 Seconds (25.6-37.1) 07/24/17 04:20 Assessment and Plan - Assessment and Plan (Free Text) Plan: - Continue antibiotics - pain control - Advance diet as tolerated - Clear for transfer from the ICU from the surgical stand point - repeat labs in am - Will follow
[2017-07-24] MEDS: Potassium Chloride 20 mEq ER Tab PO SCH ×2 (08:54→16:13)
--- NOTE | 2017-07-24 10:28 | CP.PCM.PN ---
<Nestor Mueller - Last Filed: 07/24/17 10:30> Subjective - Date & Time of Evaluation Date of Evaluation: 07/24/17 Time of Evaluation: 07:00 - Subjective Subjective: [POD#1: pt seen and examined at bedside this morning with attending. Pt moved to ICU post op secondary to 1,400mL blood loss s/p 3 units PRBCs. Pt sitting up in chair this morning, AAOx3, reports abdominal pain not well controlled with pain meds. No other complaints. Reports feeling better overall. Denies dizziness /lightheadedness, CP/SOB/palpitations, N/V/D/C, urinary symptoms, numbness/ tingling, calf pain. Objective - Vital Signs/Intake and Output Vital Signs (last 24 hours): Temp Pulse Resp BP Pulse Ox 97.9 F 87 12 184/90 H 92 L 07/24/17 08:58 07/24/17 08:52 07/24/17 08:00 07/24/17 08:52 07/24/17 08:00 Intake and Output: 07/24/17 07/24/17 06:59 18:59 Intake Total 950 340 Output Total 1070 300 Balance -120 40 - Medications Medications: Current Medications Acetaminophen (Tylenol 325mg Tab) 975 mg PO Q8 [facility] Last Admin: 07/24/17 08:58 Dose: 975 mg Amiodarone HCl (Cordarone) 100 mg PO DAILY [facility] Last Admin: 07/24/17 08:52 Dose: 100 mg Hydromorphone HCl (Dilaudid) 1 mg IVP Q4H PRN PRN Reason: Pain, moderate (4-7) Last Admin: 07/23/17 23:13 Dose: 1 mg Hydromorphone HCl (Dilaudid) 2 mg IVP Q3H PRN PRN Reason: Pain, severe (8-10) Last Admin: 07/24/17 09:00 Dose: 2 mg Piperacillin Sod/Tazobactam (Sod 3.375 gm/ Sodium Chloride) 100 mls @ 100 mls/ hr IVPB 0300,0900,1500,2100 [facility] PRN Reason: Protocol Last Admin: 07/24/17 08:56 Dose: 100 mls/hr Cefazolin Sodium 2 gm/ Sodium (Chloride) 100 mls @ 100 mls/hr IVPB Q8@0500,1300 ,2100 [facility] PRN Reason: Protocol Last Admin: 07/24/17 04:56 Dose: 100 mls/hr Lactated Ringer's (Lactated Ringer's) 1,000 mls @ 100 mls/hr IV .Q10H [facility] Last Admin: 07/24/17 06:30 Dose: 100 mls/hr Metoclopramide HCl (Reglan) 10 mg IVP Q6 PRN PRN Reason: Nausea/Vomiting Pantoprazole Sodium (Protonix Inj) 40 mg IV BID [facility] Last Admin: 07/24/17 08:55 Dose: 40 mg Potassium Chloride (K-Dur 20 Meq Er Tab) 20 meq PO BID [facility] Last Admin: 07/24/17 08:54 Dose: 20 meq Propofol (Diprivan) 1,000 mg IV .TITRATE [facility] Tamsulosin HCl (Flomax) 0.4 mg PO DAILY [facility] Last Admin: 07/24/17 08:53 Dose: 0.4 mg - Labs Labs: 07/24/17 04:20 07/24/17 04:20 PT 15.3 Seconds (9.8-13.1) H 07/24/17 04:20 INR 1.4 (0.9-1.2) H 07/24/17 04:20 APTT 28.8 Seconds (25.6-37.1) 07/24/17 04:20 - Constitutional Appears: Non-toxic, No Acute Distress - Eye Exam Eye Exam: EOMI Pupil Exam: PERRL - ENT Exam ENT Exam: Mucous Membranes Moist - Neck Exam Neck Exam: Full ROM - Respiratory Exam Respiratory Exam: Clear to Ausculation Bilateral, NORMAL BREATHING PATTERN. absent: Rales, Rhonchi, Wheezes - Cardiovascular Exam Cardiovascular Exam: REGULAR RHYTHM, RRR, +S1, +S2, Murmur. absent: JVD, Rubs - GI/Abdominal Exam GI & Abdominal Exam: Soft, Normal Bowel Sounds. absent: Distended, Firm, Guarding, Rigid - Extremities Exam Extremities Exam: Pedal Edema (trace pedal edema). absent: Calf Tenderness - Neurological Exam Neurological Exam: Alert, Awake, CN II-XII Intact, Oriented x3 - Psychiatric Exam Psychiatric exam: Normal Affect, Normal Mood - Skin Skin Exam: Dry, Intact, Normal Color. absent: Pallor Assessment and Plan (1) Acute cholecystitis Assessment & Plan: POD#1 s/p lap conner s/p 3 units PRBCs transfusion H/H stable today c/w incentive spirometry afebrile regular HR advance diet to CLD pain control PT Status: Acute (2) HTN (hypertension) Assessment & Plan: controlled c/w current management Status: Chronic (3) Hypokalemia Assessment & Plan: Resolved K+ 4.3 today continue to monitor BMPs till discharge Status: Acute (4) Prophylactic measure Assessment & Plan: SCDs protonix Status: Acute <Hector Hernandez - Last Filed: 07/26/17 06:49> Objective - Vital Signs/Intake and Output Vital Signs (last 24 hours): Temp Pulse Resp BP Pulse Ox 98.5 F 87 20 120/74 95 07/25/17 20:02 07/25/17 20:02 07/25/17 20:02 07/25/17 20:02 07/25/17 20:02 Intake and Output: 07/25/17 07/26/17 18:59 06:59 Intake Total 580 Balance 580 - Medications Medications: Current Medications Acetaminophen (Tylenol 325mg Tab) 975 mg PO Q8 [facility] Last Admin: 07/26/17 01:09 Dose: 975 mg Amiodarone HCl (Cordarone) 100 mg PO DAILY [facility] Last Admin: 07/25/17 08:32 Dose: 100 mg Apixaban (Eliquis) 5 mg PO BID [facility] PRN Reason: Protocol Last Admin: 07/25/17 16:39 Dose: 5 mg Home Med (Patient's Own Medication) 1 unit PO DAILY [facility] Last Admin: 07/25/17 08:34 Dose: 1 unit Hydromorphone HCl (Dilaudid) 1 mg IVP Q3H PRN PRN Reason: breakthrough pain Hydromorphone HCl (Dilaudid) 2 mg PO Q4 PRN PRN Reason: Pain, moderate (4-7) Hydromorphone HCl (Dilaudid) 4 mg PO Q4 PRN PRN Reason: Pain, severe (8-10) Cefazolin Sodium 2 gm/ Sodium (Chloride) 100 mls @ 100 mls/hr IVPB Q8@0500,1300 ,2100 [facility] PRN Reason: Protocol Last Admin: 07/26/17 05:13 Dose: 100 mls/hr Metoclopramide HCl (Reglan) 10 mg IVP Q6 PRN PRN Reason: Nausea/Vomiting Pantoprazole Sodium (Protonix Inj) 40 mg IV BID [facility] Last Admin: 07/25/17 16:41 Dose: 40 mg Potassium Chloride (K-Dur 20 Meq Er Tab) 20 meq PO BID [facility] Last Admin: 07/25/17 16:39 Dose: 20 meq Propofol (Diprivan) 1,000 mg IV .TITRATE [facility] Tamsulosin HCl (Flomax) 0.4 mg PO DAILY [facility] Last Admin: 07/25/17 08:33 Dose: 0.4 mg - Labs Labs: 07/26/17 04:50 07/26/17 04:50 PT 15.3 Seconds (9.8-13.1) H 07/24/17 04:20 INR 1.4 (0.9-1.2) H 07/24/17 04:20 APTT 28.8 Seconds (25.6-37.1) 07/24/17 04:20 Attending/Attestation - Attestation I have personally seen and examined this patient.: Yes I have fully participated in the care of the patient.: Yes I have reviewed all pertinent clinical information, including history, physical exam and plan: Yes
--- NOTE | 2017-07-24 12:52 | CP.PCM.PN ---
Subjective - Date & Time of Evaluation Date of Evaluation: 07/24/17 Time of Evaluation: 12:48 - Subjective Subjective: Pt had his cholecystectomy yesterday. He tolerated the procedure well Vital signs stable. No excessive bleeding Objective - Vital Signs/Intake and Output Vital Signs (last 24 hours): Temp Pulse Resp BP Pulse Ox 98.1 F 89 14 161/83 H 99 07/24/17 12:00 07/24/17 12:00 07/24/17 12:00 07/24/17 12:00 07/24/17 12:00 Intake and Output: 07/24/17 07/24/17 06:59 18:59 Intake Total 950 440 Output Total 1070 310 Balance -120 130 - Medications Medications: Current Medications Acetaminophen (Tylenol 325mg Tab) 975 mg PO Q8 [facility] Last Admin: 07/24/17 08:58 Dose: 975 mg Amiodarone HCl (Cordarone) 100 mg PO DAILY [facility] Last Admin: 07/24/17 08:52 Dose: 100 mg Hydromorphone HCl (Dilaudid) 1 mg IVP Q4H PRN PRN Reason: Pain, moderate (4-7) Last Admin: 07/23/17 23:13 Dose: 1 mg Hydromorphone HCl (Dilaudid) 2 mg IVP Q3H PRN PRN Reason: Pain, severe (8-10) Last Admin: 07/24/17 12:23 Dose: 2 mg Piperacillin Sod/Tazobactam (Sod 3.375 gm/ Sodium Chloride) 100 mls @ 100 mls/ hr IVPB 0300,0900,1500,2100 [facility] PRN Reason: Protocol Last Admin: 07/24/17 08:56 Dose: 100 mls/hr Cefazolin Sodium 2 gm/ Sodium (Chloride) 100 mls @ 100 mls/hr IVPB Q8@0500,1300 ,2100 [facility] PRN Reason: Protocol Last Admin: 07/24/17 12:20 Dose: 100 mls/hr Lactated Ringer's (Lactated Ringer's) 1,000 mls @ 100 mls/hr IV .Q10H [facility] Last Admin: 07/24/17 06:30 Dose: 100 mls/hr Metoclopramide HCl (Reglan) 10 mg IVP Q6 PRN PRN Reason: Nausea/Vomiting Pantoprazole Sodium (Protonix Inj) 40 mg IV BID [facility] Last Admin: 07/24/17 08:55 Dose: 40 mg Potassium Chloride (K-Dur 20 Meq Er Tab) 20 meq PO BID [facility] Last Admin: 07/24/17 08:54 Dose: 20 meq Propofol (Diprivan) 1,000 mg IV .TITRATE [facility] Tamsulosin HCl (Flomax) 0.4 mg PO DAILY [facility] Last Admin: 07/24/17 08:53 Dose: 0.4 mg - Labs Labs: 07/24/17 04:20 07/24/17 04:20 PT 15.3 Seconds (9.8-13.1) H 07/24/17 04:20 INR 1.4 (0.9-1.2) H 07/24/17 04:20 APTT 28.8 Seconds (25.6-37.1) 07/24/17 04:20
--- NOTE | 2017-07-24 14:21 | PN ---
CRITICAL CARE PROGRESS NOTE DATE: 07/24/2017 LOCATION: Patient in ICU, bed 421. TIME SPENT: 35 minutes. SUBJECTIVE: The patient is seen and examined at the bedside. Events since admission reviewed. Past medical, surgical, social history noted. Mr. Will is a 71-year-old male, nonsmoker, social EtOH user with a history of hypertension; paroxysmal atrial fibrillation; pulmonary embolism; mitral valve repair in 12/2016; obstructive sleep apnea, on CPAP; admitted with acute cholecystitis, underwent laparoscopic cholecystectomy, postop day 1. The patient received 3 units of packed red blood cells in OR. This morning, alert, awake, out of bed to chair. Follows commands appropriate. Complaining of pain 5 to 6/10 in intensity, not relieved with the current pain regimen. Seen by Surgery consult. The medications frequency is reduced. Denies nausea, vomiting. No shortness of breath. Hinojosa discontinued. PHYSICAL EXAMINATION: VITAL SIGNS: Temperature 97.9; heart rate 87 and regular; blood pressure 184/90; saturation 92%, on oxygen 2 L nasal cannula. Intake of 5600, output 1470. Positive balance 4130. HEAD, EYES, EARS, NOSE, AND THROAT: Pupils reactive. Conjunctivae pink. Sclerae white. NECK: Supple. HEART: Rhythm regular. S1 and S2 normal. No audible murmur. CHEST: Bilateral breath sounds. Clear to auscultation anteriorly, laterally. ABDOMEN: Bowel sounds present, soft. Liver and spleen not palpable. Dressing intact. PRESTON drain in place. Minimal drainage. NEURO: Nonfocal. LABORATORY DATA: WBC 11.6, hemoglobin 13.4, hematocrit 40.2, platelet count 165, neutrophils 83, lymphocytes 4.8, monocytes 11.8. PT 15.2, INR 1.4, PTT 28.8. SMA-7: Sodium 144, potassium 4.2, chloride of 106, CO2 of 30, blood urea nitrogen 13, creatinine 0.8, glucose 125, calcium 8.9, total bilirubin 2.5, AST 37, ALT 49, alkaline phosphatase 67, total protein 6.5, albumin 3.5. Urinalysis: Rbc 9, wbc 2. CURRENT MEDICATIONS: Tylenol 975 q.8; amiodarone 100 mg p.o. daily; cefazolin course completed; Dilaudid 1 mg IV q.4. p.r.n., 2 mg IV q.3 p.r.n. for severe pain; Ringer's lactate at 100 mL per hour; Reglan 10 mg IV q.6 p.r.n.; Protonix 40 IV twice daily; Zosyn 3.375 g IV q.6; potassium chloride 20 mEq b.i.d.; Diprivan discontinued; Flomax 0.4 mg p.o. daily. ASSESSMENT AND PLAN: 1. Postoperative day 1, status post laparoscopic cholecystectomy. Status post transfusion 3 units packed red blood cells. Hemodynamically stable, but noted to have elevated blood pressure, probably related to pain. Observe on increasing dose of pain management. Continue irbesartan 300 mg p.o. daily. 2. Pulmonary: Use incentive spirometry to prevent postoperative atelectasis. History of sleep apnea. Continue CPAP at night. 3. Cardiac: History of atrial fibrillation. Continue amiodarone daily. 4. Renal: No acute issues. 5. History of pulmonary embolism. Eliquis on hold. We will resume once cleared by Surgery. Continue deep venous thrombosis prophylaxis with sequential compression device. 6. Infectious Disease: Status post acute gangrenous cholecystitis, on Zosyn 3.375 g q.6 hours. Completed preoperative cefazolin. Continue IV hydration. Clear liquid diet. 7. History of benign prostatic hypertrophy, on Flomax. Lex Enriquez MD
[2017-07-24] MEDS ORDERED: HYDROmorphone 0.5 mg/0.5 ml ISec IVP PRN ×2 (15:06)
[2017-07-24] MEDS: IRBESARTAN 300 MG PO SCH (16:21)
[2017-07-25] MEDS: Piperacillin/Tazobact 3.375 GM in Sodium Chloride 0.9% 100 ML IVPB SCH (02:24)
[2017-07-25] MEDS: Lactated Ringer's 1,000 ML IV SCH (02:30)
[2017-07-25] MEDS: ceFAZolin 2 GM in Sodium Chloride 0.9% 100 ML IVPB SCH ×3 (05:08→22:52)
[2017-07-25 05:20] LABS: ALB/GLOB RATIO 1.1 (1.0-2.1); ALKALINE PHOSPHATASE 58 U/L (38-126); ALT/SGPT 39 U/L (21-72); AST/SGOT 22 U/L (17-59); BILIRUBIN,TOTAL 1.3 mg/dl (0.2-1.3); BLOOD UREA NITROGEN 14 mg/dl (9-20); CALCIUM 8.6 mg/dL (8.4-10.2); CARBON DIOXIDE 30 mmol/L (22-30); CHLORIDE 104 mmol/L (98-107); GFR AFRICAN-AMERICAN > 60; GLUCOSE,RANDOM 122 mg/dL (75-110); POTASSIUM 3.8 MMOL/L (3.6-5.0); SODIUM 139 mmol/l (132-148); TOTAL PROTEIN 5.6 G/DL (6.3-8.2)
[2017-07-25 05:35] LABS: BASO % 0.2 % (0.0-2.0); EOS # 0.1 K/uL (0.0-0.7); EOS % 0.8 % (0.0-4.0); HEMATOCRIT 36.3 % (35.0-51.0); LYMPH # 0.8 K/uL (1.0-4.3); LYMPH % 6.8 % (20.0-40.0); MEAN CELL VOLUME 87.7 fl (80.0-94.0); MONO # 1.8 K/uL (0.0-0.8); MONO % 15.3 % (0.0-10.0); NEUT # 9.2 K/uL (1.8-7.0); NEUT % 76.9 % (50.0-75.0); RED CELL DISTRIBUTION WIDTH 14.7 % (11.5-14.5)
--- NOTE | 2017-07-25 07:22 | CP.PCM.PN ---
<Sherice Cornelius - Last Filed: 07/25/17 07:23> Subjective - Date & Time of Evaluation Date of Evaluation: 07/25/17 Time of Evaluation: 07:00 - Subjective Subjective: Patient seen and examined this AM. NAEO. Patient states that pain is much improved and controlled on current regimen. Denies any nausea, vomiting, or chest pain. Tolerated a regular diet Objective - Vital Signs/Intake and Output Vital Signs (last 24 hours): Temp Pulse Resp BP Pulse Ox 98.4 F 81 16 111/54 L 97 07/25/17 05:00 07/25/17 05:00 07/25/17 05:00 07/25/17 05:00 07/25/17 05:00 Intake and Output: 07/25/17 07/25/17 06:59 18:59 Intake Total 900 Output Total 335 Balance 565 - Medications Medications: Current Medications Acetaminophen (Tylenol 325mg Tab) 975 mg PO Q8 [facility] Last Admin: 07/25/17 02:24 Dose: 975 mg Amiodarone HCl (Cordarone) 100 mg PO DAILY [facility] Last Admin: 07/24/17 08:52 Dose: 100 mg Home Med (Patient's Own Medication) 1 unit PO DAILY [facility] Last Admin: 07/24/17 16:21 Dose: 1 unit Hydromorphone HCl (Dilaudid) 1 mg IVP Q3H PRN PRN Reason: Pain, severe (8-10) Hydromorphone HCl (Dilaudid) 1 mg IVP Q3H PRN PRN Reason: breakthrough pain Hydromorphone HCl (Dilaudid) 4 mg PO Q4 PRN PRN Reason: Pain, moderate (4-7) Last Admin: 07/24/17 20:35 Dose: 4 mg Cefazolin Sodium 2 gm/ Sodium (Chloride) 100 mls @ 100 mls/hr IVPB Q8@0500,1300 ,2100 [facility] PRN Reason: Protocol Last Admin: 07/25/17 05:08 Dose: 100 mls/hr Metoclopramide HCl (Reglan) 10 mg IVP Q6 PRN PRN Reason: Nausea/Vomiting Pantoprazole Sodium (Protonix Inj) 40 mg IV BID [facility] Last Admin: 07/24/17 16:14 Dose: 40 mg Potassium Chloride (K-Dur 20 Meq Er Tab) 20 meq PO BID [facility] Last Admin: 07/24/17 16:13 Dose: 20 meq Propofol (Diprivan) 1,000 mg IV .TITRATE [facility] Tamsulosin HCl (Flomax) 0.4 mg PO DAILY [facility] Last Admin: 07/24/17 08:53 Dose: 0.4 mg - Labs Labs: 07/25/17 04:20 07/25/17 04:20 PT 15.3 Seconds (9.8-13.1) H 07/24/17 04:20 INR 1.4 (0.9-1.2) H 07/24/17 04:20 APTT 28.8 Seconds (25.6-37.1) 07/24/17 04:20 - Constitutional Appears: Non-toxic, No Acute Distress - Head Exam Head Exam: ATRAUMATIC, NORMOCEPHALIC - Eye Exam Eye Exam: Normal appearance. absent: Conjunctival injection, Scleral icterus - ENT Exam ENT Exam: Mucous Membranes Moist, Normal Oropharynx - Respiratory Exam Respiratory Exam: NORMAL BREATHING PATTERN. absent: Accessory Muscle Use, Respiratory Distress - Cardiovascular Exam Cardiovascular Exam: RRR - GI/Abdominal Exam GI & Abdominal Exam: Distended (mild), Soft, Tenderness (RUQ, RLQ) Additional comments: Inicisions well approximated by steristrips, c/d/i, no surrounding erythema or drainage. Avtar drain with minimal serosanguinous output. - Extremities Exam Extremities Exam: Pedal Edema (trace). absent: Calf Tenderness, Tenderness - Neurological Exam Neurological Exam: Alert, Awake, Oriented x3 - Psychiatric Exam Psychiatric exam: Normal Affect, Normal Mood - Skin Skin Exam: Dry, Normal Color, Warm Assessment and Plan - Assessment and Plan (Free Text) Assessment: 71M with Acute cholecystitis POD#2 s/p laparoscopic cholecystectomy Plan: -Continue to monitor labs and Intake and output -Switch to only PO pain medication -Serial exams -Continue heart healthy diet -D/C drain. Only 80cc's output per 24 hours -Will continue to follow -Incentive spirometer -PT--ambulate -Continue IV antibiotics Discussed with Dr. Alexander Cornelius, PGY2 <Hemanth Munoz - Last Filed: 07/25/17 11:45> Subjective - Date & Time of Evaluation Time of Evaluation: 09:00 - Subjective Subjective: Patient was seen and examined at the bedside. Agree with resident's note above Objective - Vital Signs/Intake and Output Vital Signs (last 24 hours): Temp Pulse Resp BP Pulse Ox 97.6 F 82 17 100/54 L 95 07/25/17 08:13 07/25/17 08:13 07/25/17 08:13 07/25/17 08:13 07/25/17 08:13 Intake and Output: 07/25/17 07/25/17 06:59 18:59 Intake Total 900 580 Output Total 335 Balance 565 580 - Medications Medications: Current Medications Acetaminophen (Tylenol 325mg Tab) 975 mg PO Q8 [facility] Last Admin: 07/25/17 08:35 Dose: 975 mg Amiodarone HCl (Cordarone) 100 mg PO DAILY [facility] Last Admin: 07/25/17 08:32 Dose: 100 mg Home Med (Patient's Own Medication) 1 unit PO DAILY [facility] Last Admin: 07/25/17 08:34 Dose: 1 unit Hydromorphone HCl (Dilaudid) 1 mg IVP Q3H PRN PRN Reason: breakthrough pain Hydromorphone HCl (Dilaudid) 2 mg PO Q4 PRN PRN Reason: Pain, moderate (4-7) Hydromorphone HCl (Dilaudid) 4 mg PO Q4 PRN PRN Reason: Pain, severe (8-10) Cefazolin Sodium 2 gm/ Sodium (Chloride) 100 mls @ 100 mls/hr IVPB Q8@0500,1300 ,2100 [facility] PRN Reason: Protocol Last Admin: 07/25/17 05:08 Dose: 100 mls/hr Metoclopramide HCl (Reglan) 10 mg IVP Q6 PRN PRN Reason: Nausea/Vomiting Pantoprazole Sodium (Protonix Inj) 40 mg IV BID [facility] Last Admin: 07/25/17 08:35 Dose: 40 mg Potassium Chloride (K-Dur 20 Meq Er Tab) 20 meq PO BID [facility] Last Admin: 07/25/17 08:33 Dose: 20 meq Propofol (Diprivan) 1,000 mg IV .TITRATE [facility] Tamsulosin HCl (Flomax) 0.4 mg PO DAILY [facility] Last Admin: 07/25/17 08:33 Dose: 0.4 mg - Labs Labs: 07/25/17 04:20 07/25/17 04:20 PT 15.3 Seconds (9.8-13.1) H 07/24/17 04:20 INR 1.4 (0.9-1.2) H 07/24/17 04:20 APTT 28.8 Seconds (25.6-37.1) 07/24/17 04:20
[2017-07-25] MEDS: Potassium Chloride 20 mEq ER Tab PO SCH ×2 (08:33→16:39)
[2017-07-25] MEDS: IRBESARTAN 300 MG PO SCH (08:34)
--- NOTE | 2017-07-25 10:34 | CP.PCM.PN ---
<Nestor Mueller - Last Filed: 07/25/17 15:45> Subjective - Date & Time of Evaluation Date of Evaluation: 07/25/17 Time of Evaluation: 07:00 - Subjective Subjective: POD#2: pt seen and examined at bedside this morning with attending. S/P 3 units PRBCs. Pt sitting up in chair this morning, AAOx3, reports abdominal pain not well controlled with pain meds. No other complaints. Reports feeling better overall. Denies dizziness/lightheadedness, CP/SOB/palpitations, N/V/D/C, urinary symptoms, numbness/tingling, calf pain. Objective - Vital Signs/Intake and Output Vital Signs (last 24 hours): Temp Pulse Resp BP Pulse Ox 97.6 F 82 17 100/54 L 95 07/25/17 08:13 07/25/17 08:13 07/25/17 08:13 07/25/17 08:13 07/25/17 08:13 Intake and Output: 07/25/17 07/25/17 06:59 18:59 Intake Total 900 580 Output Total 335 Balance 565 580 - Medications Medications: Current Medications Acetaminophen (Tylenol 325mg Tab) 975 mg PO Q8 [facility] Last Admin: 07/25/17 08:35 Dose: 975 mg Amiodarone HCl (Cordarone) 100 mg PO DAILY [facility] Last Admin: 07/25/17 08:32 Dose: 100 mg Home Med (Patient's Own Medication) 1 unit PO DAILY [facility] Last Admin: 07/25/17 08:34 Dose: 1 unit Hydromorphone HCl (Dilaudid) 1 mg IVP Q3H PRN PRN Reason: breakthrough pain Hydromorphone HCl (Dilaudid) 2 mg PO Q4 PRN PRN Reason: Pain, moderate (4-7) Hydromorphone HCl (Dilaudid) 4 mg PO Q4 PRN PRN Reason: Pain, severe (8-10) Cefazolin Sodium 2 gm/ Sodium (Chloride) 100 mls @ 100 mls/hr IVPB Q8@0500,1300 ,2100 [facility] PRN Reason: Protocol Last Admin: 07/25/17 05:08 Dose: 100 mls/hr Metoclopramide HCl (Reglan) 10 mg IVP Q6 PRN PRN Reason: Nausea/Vomiting Pantoprazole Sodium (Protonix Inj) 40 mg IV BID [facility] Last Admin: 07/25/17 08:35 Dose: 40 mg Potassium Chloride (K-Dur 20 Meq Er Tab) 20 meq PO BID [facility] Last Admin: 07/25/17 08:33 Dose: 20 meq Propofol (Diprivan) 1,000 mg IV .TITRATE [facility] Tamsulosin HCl (Flomax) 0.4 mg PO DAILY [facility] Last Admin: 07/25/17 08:33 Dose: 0.4 mg - Labs Labs: 07/25/17 04:20 07/25/17 04:20 PT 15.3 Seconds (9.8-13.1) H 07/24/17 04:20 INR 1.4 (0.9-1.2) H 07/24/17 04:20 APTT 28.8 Seconds (25.6-37.1) 07/24/17 04:20 - Constitutional Appears: Non-toxic, No Acute Distress - Eye Exam Eye Exam: EOMI Pupil Exam: PERRL - ENT Exam ENT Exam: Mucous Membranes Moist - Neck Exam Neck Exam: Full ROM - Respiratory Exam Respiratory Exam: Clear to Ausculation Bilateral, NORMAL BREATHING PATTERN. absent: Rales, Rhonchi, Wheezes - Cardiovascular Exam Cardiovascular Exam: REGULAR RHYTHM, RRR, +S1, +S2, Murmur. absent: JVD, Rubs - GI/Abdominal Exam GI & Abdominal Exam: Soft, Tenderness (mary kay-incisional ), Normal Bowel Sounds - Extremities Exam Extremities Exam: Pedal Edema. absent: Calf Tenderness - Neurological Exam Neurological Exam: Alert, Awake, CN II-XII Intact, Oriented x3 - Psychiatric Exam Psychiatric exam: Normal Affect, Normal Mood - Skin Skin Exam: Dry, Intact, Normal Color, Warm Assessment and Plan (1) Acute cholecystitis Assessment & Plan: POD#2 s/p lap conner s/p 3 units PRBCs transfusion H/H stable today c/w incentive spirometry afebrile regular HR tolerating regular diet pain control PT medically cleared for discharge once surgery clears Status: Acute (2) HTN (hypertension) Assessment & Plan: controlled c/w current medications Status: Chronic (3) Hypokalemia Assessment & Plan: resolved 3.8 today Status: Resolved (4) Prophylactic measure Assessment & Plan: SCDs compression stockings Status: Acute <Yasir Yost - Last Filed: 07/27/17 06:57> Objective - Vital Signs/Intake and Output Vital Signs (last 24 hours): Temp Pulse Resp BP Pulse Ox 97.7 F 86 20 126/74 98 07/26/17 16:18 07/26/17 16:18 07/26/17 16:18 07/26/17 16:18 07/26/17 16:18 Intake and Output: 07/26/17 07/27/17 18:59 06:59 Intake Total 640 Output Total 50 Balance 590 - Labs Labs: 07/26/17 04:50 07/26/17 04:50 PT 15.3 Seconds (9.8-13.1) H 07/24/17 04:20 INR 1.4 (0.9-1.2) H 07/24/17 04:20 APTT 28.8 Seconds (25.6-37.1) 07/24/17 04:20 Attending/Attestation - Attestation I have personally seen and examined this patient.: Yes I have fully participated in the care of the patient.: Yes I have reviewed all pertinent clinical information, including history, physical exam and plan: Yes
[2017-07-26] MEDS: ceFAZolin 2 GM in Sodium Chloride 0.9% 100 ML IVPB SCH (05:13)
[2017-07-26 05:35] LABS: BASO % 0.4 % (0.0-2.0); EOS # 0.1 K/uL (0.0-0.7); EOS % 1.1 % (0.0-4.0); HEMATOCRIT 35.6 % (35.0-51.0); LYMPH % 11.7 % (20.0-40.0); MEAN CELL VOLUME 87.8 fl (80.0-94.0); MEAN CORPUSCULAR HEMOGLOBIN 28.8 pg (27.0-31.0); MEAN CORPUSCULAR HGB CONC 32.8 g/dL (33.0-37.0); MEAN PLATELET VOLUME 8.8 fl (7.2-11.7); MONO # 1.1 K/uL (0.0-0.8); MONO % 13.3 % (0.0-10.0); NEUT # 6.3 K/uL (1.8-7.0); NEUT % 73.5 % (50.0-75.0); WHITE BLOOD COUNT 8.5 K/uL (4.8-10.8)
[2017-07-26 05:42] LABS: ALKALINE PHOSPHATASE 62 U/L (38-126); ALT/SGPT 33 U/L (21-72); AST/SGOT 22 U/L (17-59); BILIRUBIN,TOTAL 0.9 mg/dl (0.2-1.3); BLOOD UREA NITROGEN 15 mg/dl (9-20); CALCIUM 8.8 mg/dL (8.4-10.2); CARBON DIOXIDE 29 mmol/L (22-30); CHLORIDE 106 mmol/L (98-107); GFR AFRICAN-AMERICAN > 60; GLUCOSE,RANDOM 101 mg/dL (75-110); POTASSIUM 3.5 MMOL/L (3.6-5.0); SODIUM 142 mmol/l (132-148); TOTAL PROTEIN 5.9 G/DL (6.3-8.2)
--- NOTE | 2017-07-26 10:04 | CP.PCM.PN ---
Subjective - Date & Time of Evaluation Date of Evaluation: 07/26/17 Time of Evaluation: 09:50 - Subjective Subjective: pain improving Objective - Vital Signs/Intake and Output Vital Signs (last 24 hours): Temp Pulse Resp BP Pulse Ox 97.9 F 77 18 114/74 96 07/26/17 08:00 07/26/17 08:00 07/26/17 08:00 07/26/17 08:00 07/26/17 08:00 Intake and Output: 07/26/17 07/26/17 06:59 18:59 Intake Total 640 Output Total 50 Balance 590 - Medications Medications: Current Medications Acetaminophen (Tylenol 325mg Tab) 975 mg PO Q8 [facility] Last Admin: 07/26/17 01:09 Dose: 975 mg Amiodarone HCl (Cordarone) 100 mg PO DAILY [facility] Last Admin: 07/25/17 08:32 Dose: 100 mg Apixaban (Eliquis) 5 mg PO BID [facility] PRN Reason: Protocol Last Admin: 07/25/17 16:39 Dose: 5 mg Home Med (Patient's Own Medication) 1 unit PO DAILY [facility] Last Admin: 07/25/17 08:34 Dose: 1 unit Hydromorphone HCl (Dilaudid) 1 mg IVP Q3H PRN PRN Reason: breakthrough pain Hydromorphone HCl (Dilaudid) 2 mg PO Q4 PRN PRN Reason: Pain, moderate (4-7) Hydromorphone HCl (Dilaudid) 4 mg PO Q4 PRN PRN Reason: Pain, severe (8-10) Cefazolin Sodium 2 gm/ Sodium (Chloride) 100 mls @ 100 mls/hr IVPB Q8@0500,1300 ,2100 [facility] PRN Reason: Protocol Last Admin: 07/26/17 05:13 Dose: 100 mls/hr Metoclopramide HCl (Reglan) 10 mg IVP Q6 PRN PRN Reason: Nausea/Vomiting Pantoprazole Sodium (Protonix Inj) 40 mg IV BID [facility] Last Admin: 07/25/17 16:41 Dose: 40 mg Potassium Chloride (K-Dur 20 Meq Er Tab) 20 meq PO BID [facility] Last Admin: 07/25/17 16:39 Dose: 20 meq Propofol (Diprivan) 1,000 mg IV .TITRATE [facility] Tamsulosin HCl (Flomax) 0.4 mg PO DAILY [facility] Last Admin: 07/25/17 08:33 Dose: 0.4 mg - Labs Labs: 07/26/17 04:50 07/26/17 04:50 PT 15.3 Seconds (9.8-13.1) H 07/24/17 04:20 INR 1.4 (0.9-1.2) H 07/24/17 04:20 APTT 28.8 Seconds (25.6-37.1) 07/24/17 04:20 - Head Exam Head Exam: NORMOCEPHALIC - Neck Exam Neck Exam: Normal Inspection - Respiratory Exam Respiratory Exam: NORMAL BREATHING PATTERN - Cardiovascular Exam Cardiovascular Exam: REGULAR RHYTHM - GI/Abdominal Exam GI & Abdominal Exam: Soft, Tenderness, Normal Bowel Sounds Assessment and Plan - Assessment and Plan (Free Text) Assessment: 71 yo male with cholecystitis doing well post-op surgical care dc planning when able
[2017-07-26] MEDS: Potassium Chloride 20 mEq ER Tab PO SCH (10:11)
[2017-07-26] MEDS: IRBESARTAN 300 MG PO SCH (10:12)
--- NOTE | 2017-07-26 10:28 | CP.PCM.PN ---
Subjective - Date & Time of Evaluation Date of Evaluation: 07/26/17 Time of Evaluation: 10:27 - Subjective Subjective: Pt is very much improved. Doing fairly well with the spirometer. He has been restarted on the eliquis, and there is no evidence of bleeding. CBC is stable. Objective - Vital Signs/Intake and Output Vital Signs (last 24 hours): Temp Pulse Resp BP Pulse Ox 97.9 F 77 18 114/74 96 07/26/17 08:00 07/26/17 10:10 07/26/17 08:00 07/26/17 10:10 07/26/17 08:00 Intake and Output: 07/26/17 07/26/17 06:59 18:59 Intake Total 640 Output Total 50 Balance 590 - Medications Medications: Current Medications Acetaminophen (Tylenol 325mg Tab) 975 mg PO Q8 [facility] Last Admin: 07/26/17 10:15 Dose: 975 mg Amiodarone HCl (Cordarone) 100 mg PO DAILY [facility] Last Admin: 07/26/17 10:10 Dose: 100 mg Apixaban (Eliquis) 5 mg PO BID [facility] PRN Reason: Protocol Last Admin: 07/26/17 10:11 Dose: 5 mg Home Med (Patient's Own Medication) 1 unit PO DAILY [facility] Last Admin: 07/26/17 10:12 Dose: 1 unit Hydromorphone HCl (Dilaudid) 1 mg IVP Q3H PRN PRN Reason: breakthrough pain Hydromorphone HCl (Dilaudid) 2 mg PO Q4 PRN PRN Reason: Pain, moderate (4-7) Hydromorphone HCl (Dilaudid) 4 mg PO Q4 PRN PRN Reason: Pain, severe (8-10) Cefazolin Sodium 2 gm/ Sodium (Chloride) 100 mls @ 100 mls/hr IVPB Q8@0500,1300 ,2100 [facility] PRN Reason: Protocol Last Admin: 07/26/17 05:13 Dose: 100 mls/hr Metoclopramide HCl (Reglan) 10 mg IVP Q6 PRN PRN Reason: Nausea/Vomiting Pantoprazole Sodium (Protonix Inj) 40 mg IV BID [facility] Last Admin: 07/26/17 10:12 Dose: 40 mg Potassium Chloride (K-Dur 20 Meq Er Tab) 20 meq PO BID [facility] Last Admin: 07/26/17 10:11 Dose: 20 meq Propofol (Diprivan) 1,000 mg IV .TITRATE [facility] Tamsulosin HCl (Flomax) 0.4 mg PO DAILY [facility] Last Admin: 07/26/17 10:11 Dose: 0.4 mg - Labs Labs: 07/26/17 04:50 07/26/17 04:50 PT 15.3 Seconds (9.8-13.1) H 07/24/17 04:20 INR 1.4 (0.9-1.2) H 07/24/17 04:20 APTT 28.8 Seconds (25.6-37.1) 07/24/17 04:20
--- NOTE | 2017-07-26 10:45 | CP.PCM.DIS ---
Provider - Provider Date of Admission: 07/18/17 14:02 Attending physician: Yasir Yost MD Time Spent in preparation of Discharge (in minutes): 35 Diagnosis - Discharge Diagnosis (1) Acute cholecystitis Status: Acute (2) HTN (hypertension) Status: Chronic Priority: Low (3) Hypokalemia Status: Resolved (4) Prophylactic measure Status: Acute Hospital Course - Lab Results Lab Results: Micro Results 07/23/17 08:28 Nose MRSA Culture (Admit) - Final MRSA NOT DETECTED Most Recent Lab Values WBC 8.5 K/uL (4.8-10.8) 07/26/17 04:50 RBC 4.05 Mil/uL (4.40-5.90) L 07/26/17 04:50 Hgb 11.7 g/dL (12.0-18.0) L 07/26/17 04:50 Hct 35.6 % (35.0-51.0) 07/26/17 04:50 MCV 87.8 fl (80.0-94.0) 07/26/17 04:50 MCH 28.8 pg (27.0-31.0) 07/26/17 04:50 MCHC 32.8 g/dL (33.0-37.0) L 07/26/17 04:50 RDW 15.0 % (11.5-14.5) H 07/26/17 04:50 Plt Count 218 K/uL (130-400) 07/26/17 04:50 MPV 8.8 fl (7.2-11.7) 07/26/17 04:50 Neut % (Auto) 73.5 % (50.0-75.0) 07/26/17 04:50 Lymph % (Auto) 11.7 % (20.0-40.0) L 07/26/17 04:50 Hubbard % (Auto) 13.3 % (0.0-10.0) H 07/26/17 04:50 Eos % (Auto) 1.1 % (0.0-4.0) 07/26/17 04:50 Baso % (Auto) 0.4 % (0.0-2.0) 07/26/17 04:50 Neut # 6.3 K/uL (1.8-7.0) 07/26/17 04:50 Lymph # 1.0 K/uL (1.0-4.3) 07/26/17 04:50 Hubbard # 1.1 K/uL (0.0-0.8) H 07/26/17 04:50 Eos # 0.1 K/uL (0.0-0.7) 07/26/17 04:50 Baso # 0.0 K/uL (0.0-0.2) 07/26/17 04:50 Neutrophils % (Manual) 75 % (42-75) 07/23/17 06:05 Lymphocytes % (Manual) 10 % (20-50) L 07/23/17 06:05 Monocytes % (Manual) 15 % (0-10) H 07/23/17 06:05 Toxic Granulation Present 07/18/17 09:51 Platelet Estimate Normal (NORMAL) 07/23/17 06:05 Large Platelets Present 07/23/17 06:05 Poikilocytosis (manual Slight 07/23/17 06:05 Anisocytosis (manual) Slight 07/23/17 06:05 Tear Drop Cells Slight 07/18/17 09:51 Ovalocytes Slight 07/23/17 06:05 PT 15.3 Seconds (9.8-13.1) H 07/24/17 04:20 INR 1.4 (0.9-1.2) H 07/24/17 04:20 APTT 28.8 Seconds (25.6-37.1) 07/24/17 04:20 pO2 20 mm/Hg (30-55) L 07/18/17 09:35 VBG pH 7.39 (7.32-7.43) 07/18/17 09:35 VBG pCO2 57 mmHg (40-60) 07/18/17 09:35 VBG HCO3 29.1 mmol/L 07/18/17 09:35 VBG Total CO2 36.2 mmol/L (22-28) H 07/18/17 09:35 VBG O2 Sat (Calc) 35.1 % (40-65) L 07/18/17 09:35 VBG Base Excess 7.6 mmol/L (0.0-2.0) H 07/18/17 09:35 VBG Potassium 5.4 mmol/L (3.6-5.2) H 07/18/17 09:35 Sodium 137.0 mmol/L (132-148) 07/18/17 09:35 Chloride 103.0 mmol/L (98-107) 07/18/17 09:35 Glucose 130 mg/dL (75-110) H 07/18/17 09:35 Lactate 1.4 mmol/L (0.7-2.1) 07/18/17 09:35 FiO2 21.0 % 07/18/17 09:35 Sodium 142 mmol/l (132-148) 07/26/17 04:50 Potassium 3.5 MMOL/L (3.6-5.0) L 07/26/17 04:50 Chloride 106 mmol/L (98-107) 07/26/17 04:50 Carbon Dioxide 29 mmol/L (22-30) 07/26/17 04:50 Anion Gap 11 (-) 07/26/17 04:50 BUN 15 mg/dl (9-20) 07/26/17 04:50 Creatinine 0.6 mg/dL (0.8-1.5) L 07/26/17 04:50 Est GFR ( Amer) > 60 07/26/17 04:50 Est GFR (Non-Af Amer) > 60 07/26/17 04:50 POC Glucose (mg/dL) 124 mg/dL (65-110) H 07/18/17 10:01 Random Glucose 101 mg/dL (75-110) 07/26/17 04:50 Calcium 8.8 mg/dL (8.4-10.2) 07/26/17 04:50 Total Bilirubin 0.9 mg/dl (0.2-1.3) 07/26/17 04:50 Direct Bilirubin 0.5 mg/ml (0.0-0.4) H 07/19/17 19:58 AST 22 U/L (17-59) 07/26/17 04:50 ALT 33 U/L (21-72) 07/26/17 04:50 Alkaline Phosphatase 62 U/L (38-126) 07/26/17 04:50 Total Creatine Kinase 79 U/L (55-170) 07/18/17 09:51 Troponin I 0.0130 ng/mL (0.00-0.120) 07/18/17 09:51 Total Protein 5.9 G/DL (6.3-8.2) L 07/26/17 04:50 Albumin 3.0 g/dL (3.5-5.0) L 07/26/17 04:50 Globulin 2.9 gm/dL (2.2-3.9) 07/26/17 04:50 Albumin/Globulin Ratio 1.0 (1.0-2.1) 07/26/17 04:50 Lipase 28 U/L (23-300) 07/18/17 09:51 Venous Blood Potassium 5.4 mmol/L (3.6-5.2) H 07/18/17 09:35 Urine Color Yellow (YELLOW) 07/18/17 13:00 Urine Clarity Clear (Clear) 07/18/17 13:00 Urine pH 6.0 (5.0-8.0) 07/18/17 13:00 Ur Specific [place] 1.057 (1.003-1.030) H 07/18/17 13:00 Urine Protein 30 mg/dL (NEGATIVE) 07/18/17 13:00 Urine Glucose (UA) Neg mg/dL (Normal) 07/18/17 13:00 Urine Ketones Trace mg/dL (NEGATIVE) 07/18/17 13:00 Urine Blood Small (NEGATIVE) 07/18/17 13:00 Urine Nitrate Negative (NEGATIVE) 07/18/17 13:00 Urine Bilirubin Negative (NEGATIVE) 07/18/17 13:00 Urine Urobilinogen 0.2-1.0 mg/dL (0.2-1.0) 07/18/17 13:00 Ur Leukocyte Esterase Neg Vitor/uL (Negative) 07/18/17 13:00 Urine RBC (Auto) 9 /hpf (0-3) H 07/18/17 13:00 Urine Microscopic WBC 2 /hpf (0-5) 07/18/17 13:00 Blood Type O POSITIVE 07/23/17 06:05 Antibody Screen Negative 07/23/17 06:05 Crossmatch See Detail 07/23/17 06:05 BBK History Checked Patient has bt 07/23/17 06:05 - Hospital Course Hospital Course: (1) Acute cholecystitis Assessment & Plan: POD#3 s/p lap conner s/p 3 units PRBCs transfusion H/H stable today c/w incentive spirometry afebrile regular HR tolerating regular diet pain control PT cleared by surgery for discharge Status: Acute (2) HTN (hypertension) Assessment & Plan: controlled c/w current medications Status: Chronic (3) Hypokalemia Assessment & Plan: resolved 3.8 today After an uneventful post op course, pt was discharged in stable condition. Discharge Exam - Head Exam Head Exam: ATRAUMATIC, NORMOCEPHALIC - Eye Exam Eye Exam: EOMI Pupil Exam: PERRL - Respiratory Exam Respiratory Exam: Clear to PA & Lateral, UNREMARKABLE. absent: Accessory Muscle Use, Rales, Rhonchi, Wheezes, Respiratory Distress - Cardiovascular Exam Cardiovascular Exam: REGULAR RHYTHM, RRR, +S1, +S2, Systolic Murmur. absent: JVD - GI/Abdominal Exam GI & Abdominal Exam: Normal Bowel Sounds, Unremarkable - Neurological Exam Neurological exam: Alert, CN II-XII Intact, Oriented x3 Discharge Plan - Follow Up Plan Condition: STABLE Disposition: HOME/ ROUTINE Additional Instructions: f/u with PMD within 1 week after discharge
--- NOTE | 2017-07-26 10:59 | CP.PCM.PN ---
<Aparna Lizarraga - Last Filed: 07/26/17 10:59> Subjective - Date & Time of Evaluation Date of Evaluation: 07/26/17 Time of Evaluation: 10:58 - Subjective Subjective: Surgery: Dr. Munoz Patient doing well today. Denies abdominal pain, f/c/n/v. Tolerating diet. Per nursing no acute events overnight. Objective - Vital Signs/Intake and Output Vital Signs (last 24 hours): Temp Pulse Resp BP Pulse Ox 97.9 F 77 18 114/74 96 07/26/17 08:00 07/26/17 10:10 07/26/17 08:00 07/26/17 10:10 07/26/17 08:00 Intake and Output: 07/26/17 07/26/17 06:59 18:59 Intake Total 640 Output Total 50 Balance 590 - Medications Medications: Current Medications Acetaminophen (Tylenol 325mg Tab) 975 mg PO Q8 [facility] Last Admin: 07/26/17 10:15 Dose: 975 mg Amiodarone HCl (Cordarone) 100 mg PO DAILY [facility] Last Admin: 07/26/17 10:10 Dose: 100 mg Apixaban (Eliquis) 5 mg PO Q12H [facility] PRN Reason: Protocol Cholecalciferol (Vitamin D) 2,000 iu PO DAILY [facility] Home Med (Patient's Own Medication) 1 unit PO DAILY [facility] Last Admin: 07/26/17 10:12 Dose: 1 unit Hydromorphone HCl (Dilaudid) 1 mg IVP Q3H PRN PRN Reason: breakthrough pain Hydromorphone HCl (Dilaudid) 2 mg PO Q4 PRN PRN Reason: Pain, moderate (4-7) Hydromorphone HCl (Dilaudid) 4 mg PO Q4 PRN PRN Reason: Pain, severe (8-10) Cefazolin Sodium 2 gm/ Sodium (Chloride) 100 mls @ 100 mls/hr IVPB Q8@0500,1300 ,2100 [facility] PRN Reason: Protocol Last Admin: 07/26/17 05:13 Dose: 100 mls/hr Metoclopramide HCl (Reglan) 10 mg IVP Q6 PRN PRN Reason: Nausea/Vomiting Pantoprazole Sodium (Protonix Inj) 40 mg IV BID [facility] Last Admin: 07/26/17 10:12 Dose: 40 mg Potassium Chloride (K-Dur 20 Meq Er Tab) 20 meq PO BID [facility] Last Admin: 07/26/17 10:11 Dose: 20 meq Propofol (Diprivan) 1,000 mg IV .TITRATE [facility] Tamsulosin HCl (Flomax) 0.4 mg PO DAILY [facility] Last Admin: 07/26/17 10:11 Dose: 0.4 mg - Labs Labs: 07/26/17 04:50 07/26/17 04:50 PT 15.3 Seconds (9.8-13.1) H 07/24/17 04:20 INR 1.4 (0.9-1.2) H 07/24/17 04:20 APTT 28.8 Seconds (25.6-37.1) 07/24/17 04:20 - Constitutional Appears: Non-toxic, No Acute Distress - Head Exam Head Exam: ATRAUMATIC, NORMOCEPHALIC - Eye Exam Eye Exam: EOMI, Normal appearance - ENT Exam ENT Exam: Mucous Membranes Moist - Respiratory Exam Respiratory Exam: NORMAL BREATHING PATTERN. absent: Respiratory Distress - Cardiovascular Exam Cardiovascular Exam: REGULAR RHYTHM. absent: Tachycardia - GI/Abdominal Exam GI & Abdominal Exam: Soft. absent: Distended, Guarding, Tenderness, Rebound Additional comments: RLQ drain w/ serousanguineous fluid output-drain removed bedside. Incisions CDI w/ steris in place. - Extremities Exam Extremities Exam: Normal Inspection. absent: Calf Tenderness - Neurological Exam Neurological Exam: Alert, Awake, Oriented x3 - Psychiatric Exam Psychiatric exam: Normal Affect, Normal Mood Assessment and Plan - Assessment and Plan (Free Text) Assessment: 71M with Acute cholecystitis s/p lap conner POD3 Plan: -cleared for d/c from surgical standpoint -cont diet -f/u in 1-[address] Nickerson -take abx and pain medication as prescribed -cont to encourage OOB and IS use -can shower, do not bathe or soak incisions patient seen and examined w/ Dr. Alexander Armenta PGY3 <Hemanth Munoz - Last Filed: 07/26/17 11:18> Subjective - Subjective Subjective: Patient was seen and examined at the bedside. Agree with resident's note above. Objective - Vital Signs/Intake and Output Vital Signs (last 24 hours): Temp Pulse Resp BP Pulse Ox 97.9 F 77 18 114/74 96 07/26/17 08:00 07/26/17 10:10 07/26/17 08:00 07/26/17 10:10 07/26/17 08:00 Intake and Output: 07/26/17 07/26/17 06:59 18:59 Intake Total 640 Output Total 50 Balance 590 - Medications Medications: Current Medications Acetaminophen (Tylenol 325mg Tab) 975 mg PO Q8 [facility] Last Admin: 07/26/17 10:15 Dose: 975 mg Amiodarone HCl (Cordarone) 100 mg PO DAILY [facility] Last Admin: 07/26/17 10:10 Dose: 100 mg Apixaban (Eliquis) 5 mg PO Q12H [facility] PRN Reason: Protocol Cholecalciferol (Vitamin D) 2,000 iu PO DAILY [facility] Home Med (Patient's Own Medication) 1 unit PO DAILY [facility] Last Admin: 07/26/17 10:12 Dose: 1 unit Hydromorphone HCl (Dilaudid) 1 mg IVP Q3H PRN PRN Reason: breakthrough pain Hydromorphone HCl (Dilaudid) 2 mg PO Q4 PRN PRN Reason: Pain, moderate (4-7) Hydromorphone HCl (Dilaudid) 4 mg PO Q4 PRN PRN Reason: Pain, severe (8-10) Cefazolin Sodium 2 gm/ Sodium (Chloride) 100 mls @ 100 mls/hr IVPB Q8@0500,1300 ,2100 [facility] PRN Reason: Protocol Last Admin: 07/26/17 05:13 Dose: 100 mls/hr Metoclopramide HCl (Reglan) 10 mg IVP Q6 PRN PRN Reason: Nausea/Vomiting Pantoprazole Sodium (Protonix Inj) 40 mg IV BID [facility] Last Admin: 07/26/17 10:12 Dose: 40 mg Potassium Chloride (K-Dur 20 Meq Er Tab) 20 meq PO BID [facility] Last Admin: 07/26/17 10:11 Dose: 20 meq Propofol (Diprivan) 1,000 mg IV .TITRATE [facility] Tamsulosin HCl (Flomax) 0.4 mg PO DAILY [facility] Last Admin: 07/26/17 10:11 Dose: 0.4 mg - Labs Labs: 07/26/17 04:50 07/26/17 04:50 PT 15.3 Seconds (9.8-13.1) H 07/24/17 04:20 INR 1.4 (0.9-1.2) H 07/24/17 04:20 APTT 28.8 Seconds (25.6-37.1) 07/24/17 04:20
--- NOTE | 2017-07-26 11:32 | CON ---
DATE: 07/20/2017 REFERRING PHYSICIAN: Dr. Yost. REASON FOR CONSULTATION: Abdominal pain. HISTORY OF PRESENT ILLNESS: This is a pleasant 71-year-old male with history of hypertension, PE, on blood thinners, status post mitral valve repair, who is brought in for abdominal pain and discomfort in the right upper quadrant and the epigastric region. There is some hypertension, pain, nausea, and no vomiting. The patient never had the same before. Pain is subsiding when I saw the patient. Currently, no episodes of nausea. No fevers. No chills. Lying in bed comfortably, in no apparent distress. PAST MEDICAL HISTORY: As above. PAST SURGICAL HISTORY: As above. MEDICATIONS: Reviewed. REVIEW OF SYSTEMS: All other systems have been reviewed and negative apart from the HPI. PHYSICAL EXAMINATION GENERAL: This is a pleasant, elderly-appearing male, lying in the bed comfortably, in no apparent distress. VITAL SIGNS: Reviewed in the hospital, and grossly unremarkable. HEENT: Head is normocephalic and atraumatic. Eyes: Pupils are equal, round and reactive to light bilaterally. No conjunctival pallor or icterus. NECK: Supple. Normal range of motion. No lymphadenopathy appreciated. HEART: S1 and S2. Regular rate and rhythm. No murmurs appreciated. LUNGS: Coarse breath sounds bilaterally. ABDOMEN: Soft and nontender. Bowel sounds are present. Discomfort in the right upper quadrant region . EXTREMITIES: Pulses present bilaterally. SKIN: Warm, dry, and intact. NEUROLOGIC: A and O x3. LABORATORY DATA: Labs are reviewed. WBC is 13.6, hemoglobin 13.3, platelet count is 129. Total bili is 4.6, which is the peak for now. AST and ALT are normal. Abdominal and pelvis CAT scan shows cholecystitis. MRCP is currently pending. ASSESSMENT AND PLAN: A 71-year-old man with elevated LFTs and likely cholecystitis. From gastrointestinal standpoint, antibiotics, n.p.o., further pain control. Surgery consult appreciated. If MRCP negative, then recommend cholecystectomy. If MRCP positive, we will plan for ERCP. For now, we will follow the patient with you. Thank you for the consult. Douglas Hurley MD/ PhD CC: Yasir Yost MD
[2017-07-26 16:18] VITALS: BP 126/74; PULSE 86; RESP 20; TEMP 97.7; O2SAT 98
== END 2017-07-26 17:10 | disposition home or self-care (01) | DRG 419 ==
LOC: H.ER 09:14 → H.ERHOLD 14:02 → H.MEDSURG1 16:18 → H.ICU/CCU 07-23 18:46 → H.TEL 07-25 10:05
PROVIDERS: ADMIT Family Medicine; ATTEND Family Medicine
PROC: 0FT44ZZ Resection of Gallbladder, Percutaneous Endoscopic Approach (ICD-10-PCS; principal; 2017-07-23 13:30)
DX: K80.00 Calculus of gallbladder with acute cholecystitis without obstruction (principal); I48.0 Paroxysmal atrial fibrillation; E66.01 Morbid (severe) obesity due to excess calories; I10 Essential (primary) hypertension; E87.6 Hypokalemia; G47.33 Obstructive sleep apnea (adult) (pediatric); Z79.01 Long term (current) use of anticoagulants; Z86.711 Personal history of pulmonary embolism; Z86.718 Personal history of other venous thrombosis and embolism; N40.0 Benign prostatic hyperplasia without lower urinary tract symptoms; E80.6 Other disorders of bilirubin metabolism; Z68.37 Body mass index [BMI] 37.0-37.9, adult